=== PATIENT | female | born 1945 | race Asian ===

== ENCOUNTER 2016-06-17 14:15 | Inpatient (IN) | payer MEDICARE, OTHER ==
[~2016-06-17] VITALS: Ht 144.8 cm; Wt 73.6 kg
[2016-06-17] MEDS: [UNRECOGNIZED DRUG - REMARK] XX SCH (05:10)
[~2016-06-17 14:15] MED LIST: ASCO-110 PO; ASPI-781 PO; ATOR20TA38 PO; CHOL100016 PO; EZET10TA3 PO; FURO-109 PO; HUMALOG INSULIN; ISOS30TA5 PO; LANT3I SC; LINA5TAB PO; METO-407 PO; NIFE30TA60 PO; NIFE60TA7 PO; NIT4 SL; REPA2TAB8 PO; SITA25TA3 PO
--- NOTE | 2016-06-17 16:02 | ERA ---
ER Documentation Chief Complaint Date/Time DATE: 06/17/16 TIME: 16:00 Chief Complaint BROUGHT IN BY DAUGHTER DUE TO WEAKNESS 2 DAYS ABD PAIN HPI 71-year-old female with history of diabetes mellitus type 2, hypertension, hyperlipidemia, coronary artery disease status post CABG, anemia, CVA with residual left-sided weakness and end-stage renal disease on dialysis brought to the ED by her daughter after dialysis today for evaluation of weakness. For the last 3 days she has had increasing, generalized weakness. Denies headache or neck pain. No new visual changes, focal weakness or numbness. No chest pain or palpitations. Denies shortness of breath or cough. No leg pain or swelling. Intermittent, mild, achy left-sided abdominal pain which is exacerbated by movement. Denies nausea, vomiting or diarrhea but has had black tarry stools for the last several weeks. No hematemesis or hematochezia. She received iron supplementation at dialysis. No URI symptoms or cough. Still urinates occasionally but denies dysuria or polyuria. No fevers or chills. ROS All systems reviewed and are negative except as per history of present illness. Medications Home Meds Reported Medications Liraglutide (Victoza 3-Jared) 0.6 Mg/0.1 Ml Pen.injctr, 1.8 MG SQ QAM, SYR 06/17/16 Insulin Degludec (Tresiba Flextouch U-100) 100 Unit/1 Ml Insuln.pen, 35 UNIT SQ QAM 06/17/16 [Life Extension] No Conflict Check, 1 TAB PO DAILY for VITAMINS 06/17/16 Cholecalciferol (Vitamin D3) (VITAMIN D-3) 2,000 Unit Capsule, 1300 UNIT PO DAILY, CAP 06/17/16 Aspirin* (Ecotrin*) 325 Mg Tablet.dr, 325 MG PO DAILY, TAB 08/01/15 Ascorbate Calcium (Vitamin C) 500 Mg Tablet, 500 MG PO DAILY, TAB 08/01/15 Isosorbide Mononitrate* (Isosorbide Mononitrate*) 30 Mg Tab.er.24h, 30 MG PO DAILY, TAB 08/01/15 Repaglinide* (Repaglinide*) 2 Mg Tablet, 2 MG PO AC MEALS, TAB 08/01/15 Ezetimibe* (Zetia*) 10 Mg Tablet, 10 MG PO DAILY, TAB 08/01/15 Nifedipine* (Nifedipine ER*) 60 Mg Tablet.sa, 60 MG PO BID, TAB.SA 08/01/15 Nitroglycerin* (Nitrostat*) 0.4 Mg Tab.subl, 0.4 MG SL Q5MIN Y for CHEST PAIN, BOTTLE 07/16/14 Metoprolol Tartrate* (Lopressor*) 100 Mg Tablet, 100 MG PO BID, TAB 07/16/14 Furosemide* (Lasix*) 40 Mg Tablet, 40 MG PO DAILY, TAB 07/16/14 Discontinued Reported Medications [Humalog Insulin] No Conflict Check 08/01/15 Cholecalciferol (Vitamin D3) 1,000 Unit Capsule, 1000 UNIT PO DAILY, CAP 08/01/15 Linagliptin (TRADJENTA) 5 Mg Tablet, 5 MG PO DAILY, TAB 08/01/15 Insulin Glargine* (Lantus*) 100 Unit/Ml Soln, 15 UNIT SC QHS, #1 VIAL 08/01/15 Nifedipine* (Nifedipine ER*) 30 Mg Tablet.sa, 30 MG PO Q PM, TAB.SA 08/01/15 Atorvastatin Calcium* (Atorvastatin Calcium*) 20 Mg Tablet, 20 MG PO HS, TAB 07/16/14 Sitagliptin* (Januvia*) 25 Mg Tablet, 25 MG PO DAILY, TAB 07/16/14 Insulin Glargine* (Lantus*) 100 Unit/Ml Soln, 19 UNIT SC Q AM, EA 07/16/14 Allergies Allergies: Coded Allergies: clopidogrel bisulfate (Verified Allergy, Unknown, rash, 06/17/16) PMhx/Soc Reviewed in chart. As per HPI. History of Surgery: Yes ( 4, CABG, lobectomy for benign mass) Anesthesia Reaction: No Hx Neurological Disorder: Yes (CVA with residual left facial droop) Hx Cardiac Disorders: Yes (CAD, CABG) Hx Psychiatric Problems: No Hx Miscellaneous Medical Probl: Yes (diabetes, ESRD on hemodialysis) Hx Alcohol Use: No Hx Substance Use: No Hx Tobacco Use: No Smoking Status: Never smoker FmHx Reviewed in chart. No stroke or cancer. Not relevant to presenting complaint. Physical Exam Vitals Vital Signs Date Time Temp Pulse Resp B/P Pulse Ox O2 Delivery O2 Flow Rate FiO2 06/17/16 18:00 40 16 156/65 06/17/16 16:59 82 20 157/52 100 Room Air 06/17/16 14:32 98.6 78 18 137/59 97 Physical Exam Const: Alert, moderate distress. Head: Atraumatic Eyes: Normal Conjunctiva. Pupils equal reactive to light. ENT: Normal External Ears, Nose and Mouth. Neck: Full range of motion. Nontender. No JVD. Resp: Breath sounds are equal and clear to auscultation bilaterally. No rales rhonchi or wheezes. Cardio: Regular rate and rhythm, no murmurs or gallops. Abd: Soft, obese, non tender, non distended. Bowel sounds are present. No rebound or guarding. No masses or abnormal pulsations. Skin: No petechiae or rashes Back: No midline or CVA tenderness Ext: No cyanosis, or edema. Right upper extremity AV fistula with palpable thrill. Neur: Awake and alert. Left facial droop. Motor strength left upper and left lower extremity 4/5, right upper and right lower extremity 5/5. Psych: Normal Mood and Affect. Patient does not appear anxious or depressed. Result Diagram: 06/17/16 1605 06/17/16 1605 Results 24 hrs Laboratory Tests Test 06/17/16 16:05 06/17/16 16:35 06/17/16 17:40 White Blood Count 10.810^3/ul Red Blood Count 2.4210^6/ul Hemoglobin 7.9g/dl Hematocrit 23.6% Mean Corpuscular Volume 97.5fl Mean Corpuscular Hemoglobin 32.6pg Mean Corpuscular Hemoglobin Concent 33.5g/dl Red Cell Distribution Width 15.0% Platelet Count 70798^3/UL Mean Platelet Volume 10.7fl Neutrophils % 67.6% Lymphocytes % 20.5% Monocytes % 8.7% Eosinophils % 2.1% Basophils % 0.5% Nucleated Red Blood Cells % 0.0/100WBC Neutrophils # 7.310^3/ul Lymphocytes # 2.210^3/ul Monocytes # 0.910^3/ul Eosinophils # 0.210^3/ul Basophils # 0.110^3/ul Nucleated Red Blood Cells # 0.010^3/ul Sodium Level 137mmol/L Potassium Level 4.3mmol/L Chloride Level 96mmol/L Carbon Dioxide Level 31mmol/L Anion Gap 14 Blood Urea Nitrogen 22mg/dl Creatinine 2.40mg/dl Glucose Level 260mg/dl Calcium Level 9.2mg/dl Total Bilirubin 0.3mg/dl Direct Bilirubin 0.00mg/dl Indirect Bilirubin 0.3mg/dl Aspartate Amino Transf (AST/SGOT) 34IU/L Alanine Aminotransferase (ALT/SGPT) 40IU/L Alkaline Phosphatase 169IU/L Total Protein 6.8g/dl Albumin 3.9g/dl Globulin 2.90g/dl Albumin/Globulin Ratio 1.34 Urine Color LT. YELLOW Urine Clarity CLOUDY Urine pH 8.0 Urine Specific Effort 1.010 Urine Ketones NEGATIVE Urine Nitrite NEGATIVE Urine Bilirubin NEGATIVE Urine Urobilinogen 0.2 E.U./dL Urine Leukocyte Esterase 2+ Urine Microscopic RBC 2-5/HPF Urine Microscopic WBC >200/HPF Urine Epithelial Cells MODERATE Urine Bacteria MANY Urine Hemoglobin 1+ Urine Glucose 0.25%% Urine Total Protein 4+ Stool Occult Blood POSITIVE Current Medications Medications (Trade) Dose Ordered Sig/Santino Route PRN Reason Start Time Stop Time Status Last Admin Dose Admin Pantoprazole (Protonix Iv) 40 mg ONCE ONCE IV 06/17/16 18:00 06/17/16 18:01 DC 06/17/16 18:28 Nitroglycerin (Nitroglycerin (Sl Tab) 0.4 Mg) 1 tab [id number] PRN SL CHEST PAIN 06/17/16 19:30 Miscellaneous Information (* Miscellaneous Pharmacy Order) ONCE XX 06/17/16 19:30 06/17/16 19:36 DC Miscellaneous Information (* Miscellaneous Pharmacy Order) [facility] med 35 un... DAILY XX 06/17/16 19:30 IV Flush (NS 3 ml) 3 ml PER PROTOCOL IV 06/17/16 19:30 Ondansetron HCl (Zofran Inj) 4 mg Q6H PRN IV NAUSEA AND/OR VOMITING 06/17/16 19:30 Acetaminophen (Tylenol Tab) 650 mg Q6H PRN PO PAIN LEVEL 1-3 OR FEVER 06/17/16 19:30 Docusate Sodium (Colace) 100 mg Q12H PRN PO CONSTIPATION 06/17/16 19:30 Miscellaneous Information (* Miscellaneous Pharmacy Order) HYPOGLYCEMIA PROTOCOL w... ONCE ONCE XX 06/17/16 19:30 06/17/16 20:14 DC Miscellaneous Information (* Miscellaneous Pharmacy Order) Discontinue Glyburide, Glipizide,... ONCE ONCE XX 06/17/16 19:30 06/17/16 20:14 DC Miscellaneous Information (* Miscellaneous Pharmacy Order) Discontinue all previ... ONCE ONCE XX 06/17/16 19:30 06/17/16 20:14 DC RHYTHM STRIP INTERPRETATION: Time: 18:00. Sinus bradycardia. Ventricular rate 38. No ectopy. Indication: Weakness. EKG: TIME: 16:57. Sinus rhythm. Ventricular rate 79. IA interval 240 ms consistent with first-degree AV block. Right bundle branch block. No acute ST segment elevation or depression. No ectopy. EP Interpretation: Abnormal EKG. EKG: TIME: 18:10. Sinus bradycardia. Ventricular rate 40. IA interval 294 ms consistent with first-degree AV block. Right bundle branch block. No acute ST segment elevation or depression. No ectopy. EP Interpretation: Abnormal EKG. IMAGING: PROCEDURE: XR Chest. CLINICAL INDICATION: Shortness of breath. TECHNIQUE: Single frontal view. COMPARISON: 08/01/2015. FINDINGS: The tunneled right internal jugular vein dialysis catheter has been removed. Surgical carlos are once again noted in the right upper and midlung zones. There are sternal wires and mediastinal clips. The heart is enlarged. Calcification is present in the aorta consistent with atherosclerosis. The lungs are clear. There is no pleural effusion. There is no pneumothorax. IMPRESSION: 1. Dialysis catheter removed. 2. Cardiomegaly. 3. Prior surgery. 4. Clear lungs. RPTAT: QQ .Janak Caldwell MD, MD Date Time Electronically viewed and signed by .Janak Caldwell MD, MD on 06/17/2016 16:45 .R/ Procedures/MDM DOCUMENTS REVIEWED: ED nurse, prior ED, prior records MEDICAL DECISION MAKIN-year-old female with history of diabetes mellitus type 2, hypertension, hyperlipidemia, coronary artery disease status post CABG, anemia, CVA with residual left-sided weakness and end-stage renal disease on dialysis brought to the ED by her daughter after dialysis today for evaluation of weakness. Patient with worsening anemia, hemoglobin 7.9 as compared to 10.3 on 11/30/2015. Black tarry stools but has been receiving iron supplementation and stool guaiac is positive. Urinary tract infection but no flank tenderness, signs of pyelonephritis or criteria for systemic inflammatory response syndrome or sepsis. Rocephin 1 g IV piggyback given. Documented episodes of bradycardia with heart rates down to the high 30s may be secondary to beta blockade. No hypotension. End-stage renal disease on dialysis status post dialysis this afternoon without evidence of hyperkalemia. Mild diabetic hyperglycemia without DKA or HONK. Patient be admitted to telemetry for cardiology consultation, IV antibiotics, further evaluation and management. Counseled patient and family regarding diagnosis, diagnostic results and plan for admission. CALLS/CONSULTS: Time 17:55, Dr. Bates, he is not on-call tonight and has referred to Dr Garcia, . CALLS/CONSULTS: Time 18:20, Dr. Negron for Dr. Cornad. Recommends admission to telemetry. Will consult Dr. Reese of cardiology. PATIENT CARE TRANSITIONED: Time: 18:35, Dr. Negron. CRITICAL CARE TIME: Due to the high probability of sudden clinically significant hemodynamic and cardiovascular deterioration, this patient with end- stage renal disease on dialysis, weakness, anemia, GI Bleed and severe bradycardia required multiple, frequent reevaluations of vital signs and response to therapy. Additional critical care time was spent in interpretation of relevant clinical data, obtaining supplemental history from daughter, review of previous medical records and consultation with Dr. Dunbar of nephrology the admitting physician Dr. Negron TOTAL CRITICAL CARE TIME: 35 minutes not including other separately reportable procedures. Departure Diagnosis: Primary Impression: Acute weakness Additional Impressions: Bradycardia with 31-40 beats per minute Urinary tract infection without hematuria Qualified Code: N39.0 - Urinary tract infection without hematuria, site unspecified Anemia Qualified Code: D64.9 - Anemia, unspecified type Diabetes mellitus type 2 in obese Hypertension Qualified Code: I10 - Essential hypertension Coronary artery disease Qualified Code: I25.10 - Coronary artery disease involving [place] heart without angina pectoris, unspecified vessel or lesion type History of coronary artery bypass graft History of CVA with residual deficit Upper GI bleed Condition: Serious ALEJANDRO PAREDES MD Jun 17, 2016 16:02
[2016-06-17 16:14] LABS: ADD SCAN DIFF NO
[2016-06-17 16:17] LABS: BASOPHIL # 0.1 10^3/ul (0.0-0.1); BASOPHILS % 0.5 % (0.0-2.0); EOSINOPHILS # 0.2 10^3/ul (0.0-0.5); EOSINOPHILS % 2.1 % (0.0-7.0); HEMATOCRIT 23.6 % (37.0-47.0); HEMOGLOBIN 7.9 g/dl (12.0-16.0); LYMPHOCYTES # 2.2 10^3/ul (0.8-2.9); LYMPHOCYTES % 20.5 % (15.0-51.0); MEAN CORPUSCULAR HEMOGLOBIN 32.6 pg (29.0-33.0); MEAN CORPUSCULAR HGB CONC 33.5 g/dl (32.0-37.0); MEAN CORPUSCULAR VOLUME 97.5 fl (82.0-101.0); MEAN PLATELET VOLUME 10.7 fl (7.4-10.4); MONOCYTE # 0.9 10^3/ul (0.3-0.9); MONOCYTES % 8.7 % (0.0-11.0); NEUTROPHIL # 7.3 10^3/ul (1.6-7.5); NEUTROPHILS % 67.6 % (39.0-77.0); PLATELET COUNT 217 10^3/UL (140-415); RED BLOOD COUNT 2.42 10^6/ul (4.20-5.40); WHITE BLOOD COUNT 10.8 10^3/ul (4.8-10.8)
[2016-06-17 16:32] LABS: ALBUMIN 3.9 g/dl (3.3-4.9); ALBUMIN/GLOBULIN RATIO 1.34; BILIRUBIN,INDIRECT 0.3 mg/dl (0-1.1); BILIRUBIN,TOTAL 0.3 mg/dl (0.2-1.3); CALCIUM 9.2 mg/dl (8.4-10.2); CREATININE 2.4 mg/dl (0.44-1.00); POTASSIUM 4.3 mmol/L (3.5-5.1); TOTAL PROTEIN 6.8 g/dl (6.1-8.1)
--- NOTE | 2016-06-17 16:45 | RADRPT ---
PROCEDURE: XR Chest. CLINICAL INDICATION: Shortness of breath. TECHNIQUE: Single frontal view. COMPARISON: 08/01/2015. FINDINGS: The tunneled right internal jugular vein dialysis catheter has been removed. Surgical carlos are o nce again noted in the right upper and midlung zones. There are sternal wires and mediastinal clips . The heart is enlarged. Calcification is present in the aorta consistent with atherosclerosis. The lungs are clear. There is no pleural effusion. There is no pneumothorax. IMPRESSION: 1. Dialysis catheter removed. 2. Cardiomegaly. 3. Prior surgery. 4. Clear lungs. RPTAT: QQ .Janak Caldwell MD, MD Date Time Electronically viewed and signed by .Janak Caldwell MD, MD on 06/17/2016 16:45 .R/
[2016-06-17] MEDS ORDERED: CHOL20003 PO (16:52)
[2016-06-17 16:53] LABS: ADD UMIC YES; URINE BILIRUBIN (Dip) NEGATIVE (NEGATIVE); URINE BLOOD (Dip) 1+ (NEGATIVE); URINE COLOR LT. YELLOW (YELLOW); URINE KETONES (Dip) NEGATIVE (NEGATIVE); URINE LEUKOCYTE ESTERASE (Dip) 2+ (NEGATIVE); URINE NITRITE (Dip) NEGATIVE (NEGATIVE); URINE TOTAL PROTEIN (Dip) 4+ (NEGATIVE); URINE UROBILINOGEN (Dip) 0.2 E.U./dL (0.1-1.0)
[2016-06-17] MEDS ORDERED: [UNRECOGNIZED DRUG - OTHER] PO (16:57)
[2016-06-17 17:03] LABS: BACTERIA,URINE MANY
[2016-06-17] MEDS ORDERED: LIRA0.6P2 SQ (17:05)
[2016-06-17] MEDS ORDERED: INSU100I31 SQ (17:05)
[2016-06-17] MEDS ORDERED: PANTOPRAZOLE 40 MG INJ IV ONE (18:00)
[2016-06-17] MEDS ORDERED: NACL 0.9% 3 ML SYG IV SCH (19:30)
[2016-06-17] MEDS ORDERED: NITROGLYCERIN (SL) 0.4 MG TAB SL PRN (19:30)
[2016-06-17] MEDS ORDERED: DOCUSATE SODIUM 100 MG CAP PO PRN (19:30)
[2016-06-17] MEDS ORDERED: ONDANSETRON 4 MG INJ IV PRN (19:30)
--- NOTE | 2016-06-17 19:49 | HP ---
Date/Time of Note Date/Time of Note DATE: 06/17/16 TIME: 19:36 Assessment/Plan VTE Prophylaxis VTE Prophylaxis Intervention: SCD's Lines/Catheters IV Catheter Type (from Nrs): Saline Lock Assessment/Plan Problems: (1) Acute weakness Status: Acute Comment: Likely due either to bradycardia or GIB. See below (2) Urinary tract infection without hematuria Status: Acute Comment: Urine culture and start cipro Qualifiers: Urinary tract infection type: site unspecified Qualified Code: N39.0 - Urinary tract infection without hematuria, site unspecified (3) Bradycardia with 31-40 beats per minute Status: Acute Comment: Hold metoprolol. Cardiology consult (4) Guaiac positive stools Status: Acute Comment: Start PPI and Get GI consult (5) Acute blood loss anemia Status: Acute Comment: see above (6) End stage renal disease Status: Chronic Comment: Nephrology to follow but HD not due for 2 days (7) Diabetes mellitus type 2 in obese Status: Chronic Comment: Cont. home DM regimen. Family to bring in meds (8) Hypertension Status: Chronic Comment: Monitor BP while metoprolol being held Qualifiers: Hypertension type: essential hypertension Qualified Code: I10 - Essential hypertension (9) Hyperlipidemia Status: Chronic Comment: Cont. zetia Qualifiers: Hyperlipidemia type: unspecified Qualified Code: E78.5 - Hyperlipidemia, unspecified hyperlipidemia type HPI/ROS Admit Date/Time Admit Date/Time 06/17/2016 @ 1930 Hx of Present Illness 71 y/o P F w/ h/o T2DM, w/ DN/DR/DN, ESRD, HTN, hyperlipidemia, CAD, CVA w/ residual deficit, osteoporosis, in [facility] until 2 days ago when she developed new onset of generalized weakness and malaise. This continued to progress until this am when she felt so weak that she almost could not get out of bed. However , knew that she had to go to have HD so she did. However, after HD called her daughter to come pick her up to go to hospital b/c too weak. Admits to black tarry stool. In ER, had episodes on monitor of HR dropping to 40's and 30's intermittently. One captured on 12-lead was as slow as 40 bpm. Pt. also found to have > 200 WBC in urine. ROS Constitutional: fatigue Eyes: other (poor vision especially L > R) ENT: no complaints Respiratory: no complaints Cardiovascular: no complaints Gastrointestinal: no complaints Genitourinary: no complaints Musculoskeletal: no complaints Skin: no complaints Neurologic: no complaints Endocrine: no complaints Psychological: nl mood/affect, no complaints PMH/Family/Social Past Medical History Medical History: coronary artery disease, diabetes, high cholesterol, hypertension, renal disease, other (CVA, ESRD, osteoporosis) Past Surgical History Past Surgical Hx: coronary bypass surgery, other (c-sect, B catarcts, AV fistulas, R partial lobectomy) Family History Significant Family History: no pertinent family hx Social History Born in [facility]. , four grown kids, two in [facility] Alcohol Use: none Smoking Status: Never smoker Drug Use: none Exam/Review of Systems Vital Signs Vitals VS - Last 72 Hours, by Label Date Time Temp Pulse Resp B/P Pulse Ox O2 Delivery O2 Flow Rate FiO2 06/17/16 16:59 82 20 157/52 100 Room Air 06/17/16 14:32 98.6 78 18 137/59 97 Vital Signs Date Time Temp Pulse Resp B/P Pulse Ox O2 Delivery O2 Flow Rate FiO2 06/17/16 16:59 82 20 157/52 100 Room Air 06/17/16 14:32 98.6 Exam Constitutional: alert, frail, oriented, other (obese) Psych: nl mood/affect, no complaints Eyes: EOMI, PERRL, nl conjunctiva, nl sclera, No nl lids (ptosis L eyelid) ENMT: mucosa pink and moist, nl external ears & nose Neck: non-tender, supple, No bruits, No masses, No thyromegaly Respiratory: clear to auscultation, normal air movement Cardiovascular: regular rate and rhythm, No edema, No murmurs/extra sounds, No rub Gastrointestinal: bowel sounds, nl liver, spleen, non-tender, soft, No mass, No rebound or guarding Musculoskeletal: nl extremities to inspection Extremities: normal pulses, No clubbing, No cyanosis, No edema Neurological: PNEUMATIC RIVETER II-XII intact, focal weakness (L sided residual deficit), nl mental status, No nl speech (dysarthric) Labs Result Diagram: 06/17/16 1605 06/17/16 1605 Medications Medications Current Medications Cholecalciferol (Vitamin D) 1,300 unit DAILY PO ; Start 06/18/16 at 09:00; Status UNV EZETIMIBE (Zetia) 10 mg DAILY PO ; Start 06/18/16 at 09:00; Status UNV Furosemide (Lasix) 40 mg DAILY PO ; Start 06/18/16 at 09:00; Status UNV Isosorbide Mononitrate (Imdur) 30 mg DAILY PO ; Start 06/18/16 at 09:00; Status UNV Nifedipine (Procardia Xl) 60 mg BID PO ; Start 06/17/16 at 21:00; Status UNV Nitroglycerin (Nitroglycerin (Sl Tab) 0.4 Mg) 1 tab [id number] PRN SL CHEST PAIN ; Start 06/17/16 at 19:30; Status UNV Miscellaneous Information 500 mg DAILY PO ; Start 06/18/16 at 09:00; Status UNV Miscellaneous Information (* Miscellaneous Pharmacy Order) ONCE XX ; Start 06/17 at 19:30; Status UNV Miscellaneous Information (* Miscellaneous Pharmacy Order) Victoza home med 1.8 mg... DAILY XX ; Start 06/18/16 at 09:00; Status UNV BLANK HOFFMAN MD Jun 17, 2016 19:47
[2016-06-17] MEDS ORDERED: GLUCAGON 1 MG INJ IM PRN (20:30)
[2016-06-17] MEDS ORDERED: GLUCOSE GEL 15 GRAM TUBE BUCCAL PRN (20:30)
[2016-06-17] MEDS ORDERED: DEXTROSE 50% 50 ML SYRINGE IV PRN ×2 (20:30)
[2016-06-17] MEDS ORDERED: GLUCOSE GEL 15 GRAM TUBE PO PRN ×2 (20:30)
[2016-06-17] MEDS: INSULIN ASPART [NOVOLOG] 3 ML PEN SC SCH (21:00)
[2016-06-17] MEDS: CIPROFLOXACIN 250 MG TAB PO SCH (21:40)
[2016-06-17] MEDS: NIFEdipine (XL) 60 MG TAB PO SCH (21:41)
--- NOTE | 2016-06-17 21:49 | CONS ---
DATE OF ADMISSION: 06/17/2016 DATE OF CONSULTATION: 06/17/2016 TYPE OF CONSULTATION: Cardiology. REASON FOR CONSULTATION: Bradycardia, generalized weakness. REQUESTING PHYSICIAN: Dr. Lobo Hoffman HISTORY OF PRESENT ILLNESS: Ms. Nuno is a very-pleasant 71-year-old female with history of diabet es mellitus type 2; hypertension; dyslipidemia; coronary artery disease, status post coronary bypass graft surgery with graft patent by catheterization 07/2015; end-stage renal disease on hemodialysis ; diabetes mellitus; history of dyslipidemia; prior CVA; osteoporosis who presented with 2 days of g eneralized weakness and malaise. The patient denied chest pain, shortness of breath. The patient p resented for hemodialysis and after dialysis was noted to be very weak and also admitted to having b lack, tarry stools. Upon arrival in the emergency department, temperature 98.6, blood pressure 137/ 59, pulse 78, respiratory rate 18, saturating 97%. The patient's labs were notable for white count of 10.8, hemoglobin 7.9, MCV 97.5, platelet count of 217. Sodium 137, potassium 4.3, creatinine 2.4 , BUN 22, AST 34, ALT 40. UA positive, occult blood positive. The patient underwent a chest x-ray revealing cardiomegaly, clear lungs. The patient's electrocardiogram revealed sinus rhythm, rate of 79, normal axis with borderline right bundle branch block, secondary repolarization abnormalities a nd a primary first-degree AV block. The patient today was placed on telemetry and since being place d on telemetry has had episodes of bradycardia which appear to be sinus bradycardia to the high 30s and to the 40s intermittently. PAST MEDICAL HISTORY: As above in HPI. MEDICATIONS PRIOR TO ADMISSION: 1. Zetia. 2. Imdur 30 mg daily. 3. Metoprolol 100 mg p.o. b.i.d. 4. Nifedipine 60 mg p.o. b.i.d. 5. Sublingual nitroglycerin. 6. Aspirin 325 mg daily. 7. Lasix 40 mg daily. 8. Insulin. 9. Vitamin C. 10. Multivitamins. ALLERGIES: PLAVIX. SOCIAL HISTORY: No tobacco, ETOH, illicit drug use. MEDICATIONS CURRENTLY IN HOSPITAL: 1. Zetia 10 mg daily. 2. Lasix 40 mg daily. 3. Imdur 30 mg daily. 4. Vitamin C 500 mg daily. 5. Victoza. 6. Vitamin D. 7. Prandin 2 mg with meals. 8. Protonix 40 mg IV daily. 9. Procardia-XL 60 mg b.i.d. 10. Ciprofloxacin 250 mg p.o. b.i.d. 11. Insulin sliding scale. FAMILY HISTORY: Negative for sudden cardiac or early CAD. REVIEW OF SYSTEMS: As above in HPI. CONSTITUTIONAL: No fevers, chills. PULMONARY: No current shortness of breath. CARDIOVASCULAR: No current chest pain. Bradycardia. GASTROINTESTINAL: No vomiting. GENITOURINARY: No hematuria. MUSCULOSKELETAL: Degenerative joint disease. PSYCHIATRIC: The patient denies depression. NEUROLOGIC: Positive history of CVA. PHYSICAL EXAMINATION: VITAL SIGNS: Temperature of 98.6, blood pressure most recently 157/52, pulse in the 40s, respirator y rate 20, saturating 100% on room air. GENERAL: The patient is alert, awake with appearing generalized weakness and fatigue. NECK: JVP approximately 9 cm of water. CHEST: Fair air movement throughout with mildly decreased breath sounds to bases bilaterally. HEART: Bradycardic, regular rhythm. Normal S1, S2. I/ systolic murmur. Nondisplaced PMI. ABDOMEN: Positive bowel sounds, soft. EXTREMITIES: Trace edema. Pulses 1+ bilaterally at posterior tibial. NEUROLOGIC: Facial droop. LABORATORY DATA: As above in HPI. No further labs for my review at this time. IMAGING STUDIES: As above in HPI. No further imaging studies for my review at this time. ELECTROCARDIOGRAM: As above in HPI. No further electrocardiograms for my review at this time. IMPRESSION: 1. Bradycardia to the 30s, question if due to beta camron, likely in the setting of generalized co nduction system defects given right bundle branch block and first-degree atrioventricular block. 2. Abnormal electrocardiogram with right bundle block, first-degree atrioventricular block. Assess for acute coronary syndrome, rule out further degree of heart block. 3. Hypertension. 4. Dyslipidemia. 5. Anemia. 6. Gastrointestinal bleed. 7. End-stage renal disease on hemodialysis. 8. Diabetes mellitus. 9. History of cerebrovascular accident. RECOMMENDATIONS: 1. At this time would admit patient to telemetry monitoring to follow rhythm and rate control close ly. 2. Will complete a rule-out for myocardial infarction, ensure that the patient's constellation of s ymptoms are not the result of an acute coronary syndrome such as acute myocardial infarction. 3. Check a 2D echo to re-assess patient's ejection fraction, wall motion and rule out any major danial ve abnormalities. 4. Check a TSH to be sure that subclinical hypothyroidism is not additionally contributing to the p atient's bradyarrhythmias in addition to beta camron and conduction system disease. 5. Continue the patient's current Imdur and Procardia, following blood pressure closely. 6. Hold patient's beta blockers. We are doing and giving no thais agents at this time. 7. Continue the patient's daily Lasix. 8. Hemodialysis for volume removal. 9. Consider transfusion of packed RBCs, following hemoglobin closely and GI evaluation given guaiac -positive stools for workup of GI bleed. 10. Follow the patient's blood sugars closely with adjustment of hyperglycemic agents as necessary. 11. Check a fasting lipid panel for general risk stratification and adjust the patient's lipid-lowe ring medication with Zetia as necessary. 12. Will continue to follow for possible need of permanent pacemaker additionally. Thank you for allowing me to take part in the care of this patient. I will continue to follow along very closely with you with further recommendations to be made as the patient progresses through her inpatient hospital clinical course. Dictated By: DORIS ABDULLAHI/HESHAM Conf#: [id number] DID#: [id number] CC: LOBO HOFFMAN MD;*EndCC*
[2016-06-18] VITALS (23 sets, daily range): BP systolic 109–164; BP diastolic 47–71; PULSE 40–80; RESP 17–20; Ht 144.8 cm; Wt 73.6 kg
[2016-06-18 01:37] LABS: CK-MB 0.39 ng/ml (0.0-2.4); TROPONIN-I 0.014 ng/ml (0.00-0.12)
[2016-06-18] MEDS: PANTOPRAZOLE 40 MG INJ IV SCH (05:11)
[2016-06-18] MEDS: [UNRECOGNIZED DRUG - REMARK] XX SCH (05:30)
[2016-06-18] MEDS: REPAGLINIDE 2 MG TAB PO SCH ×3 (07:30→17:52)
[2016-06-18] MEDS: INSULIN ASPART [NOVOLOG] 3 ML PEN SC SCH ×4 (08:28→21:00)
[2016-06-18] MEDS: EZETIMIBE 10 MG TAB PO SCH (08:59)
[2016-06-18] MEDS: CIPROFLOXACIN 250 MG TAB PO SCH (09:00)
[2016-06-18] MEDS ORDERED: VICTOZA 18 MG/3 ML SC SCH (09:00)
[2016-06-18] MEDS: ASCORBIC ACID 500 MG TAB PO SCH (09:00)
[2016-06-18] MEDS: ISOSORBIDE MONONITRATE(SR)30 MG TAB PO SCH (09:00)
[2016-06-18] MEDS ORDERED: CHOLECALCIFEROL 2,000 UNIT CAP PO SCH (09:00)
[2016-06-18] MEDS: NIFEdipine (XL) 60 MG TAB PO SCH ×2 (09:00→21:09)
[2016-06-18] MEDS: CHOLECALCIFEROL 2,000 UNIT CAP PO SCH (09:01)
[2016-06-18] MEDS: FUROSEMIDE 40 MG TAB PO SCH (09:01)
[2016-06-18 11:01] LABS: ADD SCAN DIFF NO
[2016-06-18 11:14] LABS: BASOPHILS % 0.5 % (0.0-2.0); EOSINOPHILS # 0.2 10^3/ul (0.0-0.5); HEMATOCRIT 22.7 % (37.0-47.0); HEMOGLOBIN 7.3 g/dl (12.0-16.0); LYMPHOCYTES # 1.7 10^3/ul (0.8-2.9); LYMPHOCYTES % 21.3 % (15.0-51.0); MEAN CORPUSCULAR HEMOGLOBIN 32.3 pg (29.0-33.0); MEAN CORPUSCULAR HGB CONC 32.2 g/dl (32.0-37.0); MEAN CORPUSCULAR VOLUME 100.4 fl (82.0-101.0); MEAN PLATELET VOLUME 10.9 fl (7.4-10.4); MONOCYTE # 0.7 10^3/ul (0.3-0.9); MONOCYTES % 8.3 % (0.0-11.0); NEUTROPHIL # 5.3 10^3/ul (1.6-7.5); NEUTROPHILS % 66.4 % (39.0-77.0); NUCLEATED RED BLOOD CELLS% 0.3 /100WBC (0.0-0.0); PLATELET COUNT 179 10^3/UL (140-415); RED BLOOD COUNT 2.26 10^6/ul (4.20-5.40); RED CELL DISTRIBUTION WIDTH 15.6 % (11.5-14.5); WHITE BLOOD COUNT 7.9 10^3/ul (4.8-10.8)
--- NOTE | 2016-06-18 11:20 | CONS ---
DATE OF ADMISSION: 06/17/2016 DATE OF CONSULTATION: 06/18/[address] Moncada: Thank you for asking me to see Mrs. Nuno in GI consultation. HISTORY OF PRESENT ILLNESS: The patient, as you know, is a 71-year-old Lao female who was expe riencing a great deal of weakness, tiredness and she was brought to the emergency room yesterday. S he was found to have a low hemoglobin around 7.9 grams. She was found to have guaiac positive stool s. She has had black stools in the past. She denies abdominal pain, nausea, vomiting, heartburn, b elching, burping, bloating or dysphagia, no diarrhea, no constipation, no significant weight loss. She has a history of chronic renal failure and she is on hemodialysis. MEDICATION: She takes multiple medications at home, which includes: 1. Zetia. 2. Lopressor. 3. Nifedipine. 4. Nitrostat. 5. ____ 6. Lasix. 7. Victoza. 8. Repaglinide. 9. Vitamin C. 10. Vitamin D3. SOCIAL HISTORY: Patient does not smoke or drink. PAST MEDICAL HISTORY: Coronary artery bypass surgery. REVIEW OF SYSTEM: Includes coronary artery disease, diabetes, high cholesterol, hypertension, renal disease, CVA, osteoporosis. PHYSICAL EXAMINATION: GENERAL: The patient is a 71-year-old Lao female who at this time is alert, mildly obese, afeb rile. VITAL SIGNS: Temperature 98.2, blood pressure 164/71, pulse is 67. CARDIOVASCULAR: Normal heart sounds. RESPIRATORY: Normal breath sounds. ABDOMEN: Showed unremarkable findings. LABORATORY WORKUP: Essentially as mentioned earlier, hemoglobin 7.9, platelet count 217,000. Proth rombin time is not available. WBC count 10,800, potassium 4.3, creatinine 2.4, BUN 22, bilirubin 0. 3, AST 34, ALT 40, alkaline phosphatase is 169. CLINICAL IMPRESSION: The patient presenting with history of severe anemia with possible occult alvarado rointestinal bleeding, rule out peptic ulcer disease and AV malformation of the GI tract, colorectal neoplasm. history of coronary artery disease, hypertension, diabetes, end-stage renal disease on hemodialysis. PLAN: At this time, recommend upper endoscopy as well as lower endoscopy. Once again, doctor, thank you for this consultation. Dictated By: EARNEST SIN/HESHAM Conf#: [id number] [facility]#: [id number] CC: BLANK MONCADA MD; EARNEST BULLOCK MD;*EndCC*
[2016-06-18 11:25] LABS: CK-MB 0.45 ng/ml (0.0-2.4)
[2016-06-18 11:28] LABS: TROPONIN-I 0.018 ng/ml (0.00-0.12)
[2016-06-18 11:38] LABS: ALBUMIN 3.3 g/dl (3.3-4.9); ALBUMIN/GLOBULIN RATIO 1.57; BILIRUBIN,INDIRECT 0.2 mg/dl (0-1.1); BILIRUBIN,TOTAL 0.2 mg/dl (0.2-1.3); CALCIUM 8.9 mg/dl (8.4-10.2); CHOL/HDL RATIO 2.8 RATIO; CREATININE 3.78 mg/dl (0.44-1.00); MAGNESIUM 1.9 mg/dl (1.7-2.5); POTASSIUM 4.5 mmol/L (3.5-5.1); TOTAL PROTEIN 5.4 g/dl (6.1-8.1)
[2016-06-18 12:07] LABS: THYROID STIMULATING HORMONE 2.61 MIU/L (0.465-4.680)
[2016-06-18 12:44] LABS: CK-MB 0.41 ng/ml (0.0-2.4); TROPONIN-I 0.015 ng/ml (0.00-0.12)
[2016-06-18] MEDS ORDERED: SOD CHLORIDE 0.9% 250 ML IV* ONE (13:52)
--- NOTE | 2016-06-18 13:52 | CONS ---
Date/Time of Note Date/Time of Note DATE: 06/18/16 TIME: 13:44 Assessment/Plan Assessment/Plan Additional Assessment/Plan 71 yo Female with 1) ESRD 2) Acute anemia of blood loss on Chronic Disease 3) Mild Hyponatremia 4) Mineral bone disease, CKD 5) Chronic HTN 6) Dm with Renal Complication, ESRD HD ordered for this evening, No heparin with HD Planned for PRBC transfusion with HD Endoscopy procedure tomorrow by Dr Soto Will place patient on MWF HD schedule while in the hospital UF Even tonight Repeat H/Hct and chemistry in am BP well controlled, stable. Thank you for the opportunity to participate in the care of Ms Nuno Consultation Date/Type/Reason Admit Date/Time 06/17/2016 @ 1930 Date of Consultation: Jun 18, 2016 Type of Consultation: Nephrology Reason for Consultation ESRD Referring Provider: BLANK HOFFMAN MD Hx of Present Illness 71-year-old [place] Female with history ESRD on HD every Tuesday, , Tuesday, whos last HD was on , presenting ED with weakness found to have severe anemia and possible GIB. Pt also with history of diabetes mellitus type 2, hypertension, hyperlipidemia, coronary artery disease status post CABG, anemia, CVA with residual left-sided weakness. No chest pain or palpitations. Denies shortness of breath or cough. No leg pain or swelling. Denies nausea, vomiting or diarrhea but has had black tarry stools for the last several weeks. No hematemesis or hematochezia. She received iron supplementation at dialysis. Denies dysuria or polyuria. No fevers or chills. Nephrology consulted for managment of ESRD Eyes: other ENT: no complaints Respiratory: no complaints Cardiovascular: no complaints Gastrointestinal: no complaints Genitourinary: no complaints Musculoskeletal: no complaints Skin: no complaints Neurologic: no complaints Psychological: nl mood/affect, no complaints Past Medical History Medical History: coronary artery disease, diabetes, high cholesterol, hypertension, renal disease, other (CVA, ESRD, osteoporosis) Past Surgical History Past Surgical Hx: coronary bypass surgery, other (c-sect, B catarcts, AV fistulas, R partial lobectomy) Family History Significant Family History: no pertinent family hx Social History Alcohol Use: none Smoking Status: Never smoker Drug Use: none Exam/Review of Systems Vital Signs Vitals Vital Signs Date Time Temp Pulse Resp B/P Pulse Ox O2 Delivery O2 Flow Rate FiO2 06/18/16 12:08 65 06/18/16 11:26 98.1 17 118/54 98 06/18/16 03:34 Room Air Exam Constitutional: alert, oriented, No distress Neck: No jvd Respiratory: clear to auscultation Cardiovascular: regular rate and rhythm Gastrointestinal: soft Neurological: HIGH L[employer]LE [employer]ATOR II-XII intact, nl mental status, No lethargic Skin: No diaphoresis Results Result Diagram: 06/18/16 0945 06/18/16 0945 Results 24 hrs Laboratory Tests Test 06/17/16 16:05 06/17/16 16:35 06/17/16 17:40 06/17/16 21:53 White Blood Count 10.8 Red Blood Count 2.42 #L Hemoglobin 7.9 #L Hematocrit 23.6 #L Mean Corpuscular Volume 97.5 Mean Corpuscular Hemoglobin 32.6 Mean Corpuscular Hemoglobin Concent 33.5 Red Cell Distribution Width 15.0 H Platelet Count 217 Mean Platelet Volume 10.7 #H Neutrophils % 67.6 Lymphocytes % 20.5 Monocytes % 8.7 Eosinophils % 2.1 Basophils % 0.5 Nucleated Red Blood Cells % 0.0 Neutrophils # 7.3 Lymphocytes # 2.2 Monocytes # 0.9 Eosinophils # 0.2 Basophils # 0.1 Nucleated Red Blood Cells # 0.0 Sodium Level 137 Potassium Level 4.3 Chloride Level 96 L Carbon Dioxide Level 31 Anion Gap 14 Blood Urea Nitrogen 22 H Creatinine 2.40 H Glucose Level 260 H Calcium Level 9.2 Total Bilirubin 0.3 Direct Bilirubin 0.00 Indirect Bilirubin 0.3 Aspartate Amino Transf (AST/SGOT) 34 Alanine Aminotransferase (ALT/SGPT) 40 Alkaline Phosphatase 169 H Total Protein 6.8 Albumin 3.9 Globulin 2.90 Albumin/Globulin Ratio 1.34 Urine Color LT. YELLOW Urine Clarity CLOUDY Urine pH 8.0 Urine Specific [place] 1.010 Urine Ketones NEGATIVE Urine Nitrite NEGATIVE Urine Bilirubin NEGATIVE Urine Urobilinogen 0.2 E.U./dL Urine Leukocyte Esterase 2+ H Urine Microscopic RBC 2-5 Urine Microscopic WBC >200 Urine Epithelial Cells MODERATE Urine Bacteria MANY Urine Hemoglobin 1+ H Urine Glucose 0.25% H Urine Total Protein 4+ H Stool Occult Blood POSITIVE Bedside Glucose 337 H Test 06/18/16 00:38 06/18/16 08:00 06/18/16 09:45 06/18/16 11:54 Creatine Kinase 54 56 55 Creatine Kinase Index 0.7 0.8 0.7 Creatinine Kinase MB (Mass) 0.39 0.45 0.41 Troponin I 0.014 0.018 0.015 Bedside Glucose 253 H White Blood Count 7.9 # Red Blood Count 2.26 L Hemoglobin 7.3 L Hematocrit 22.7 L Mean Corpuscular Volume 100.4 Mean Corpuscular Hemoglobin 32.3 Mean Corpuscular Hemoglobin Concent 32.2 Red Cell Distribution Width 15.6 H Platelet Count 179 Mean Platelet Volume 10.9 H Neutrophils % 66.4 Lymphocytes % 21.3 Monocytes % 8.3 Eosinophils % 3.0 Basophils % 0.5 Nucleated Red Blood Cells % 0.3 H Neutrophils # 5.3 Lymphocytes # 1.7 Monocytes # 0.7 Eosinophils # 0.2 Basophils # 0.0 Nucleated Red Blood Cells # 0.0 Sodium Level 133 L Potassium Level 4.5 Chloride Level 96 L Carbon Dioxide Level 26 Anion Gap 16 Blood Urea Nitrogen 35 #H Creatinine 3.78 #H Glucose Level 307 H Hemoglobin A1c 6.8 H Calcium Level 8.9 Magnesium Level 1.9 Total Bilirubin 0.2 Direct Bilirubin 0.00 Indirect Bilirubin 0.2 Aspartate Amino Transf (AST/SGOT) 23 Alanine Aminotransferase (ALT/SGPT) 33 Alkaline Phosphatase 132 H Total Protein 5.4 #L Albumin 3.3 Globulin 2.10 Albumin/Globulin Ratio 1.57 Triglycerides Level 148 Cholesterol Level 101 LDL Cholesterol, Calculated 35 HDL Cholesterol 36 Cholesterol/HDL Ratio 2.8 Thyroid Stimulating Hormone (TSH) 2.610 Test 06/18/16 12:11 Bedside Glucose 243 H Medications Medications Current Medications EZETIMIBE (Zetia) 10 mg DAILY PO Last administered on 06/18/16 08:59; Admin Dose 10 MG; Start 06/18/16 at 09:00 Furosemide (Lasix) 40 mg DAILY PO Last administered on 06/18/16 09:01; Admin Dose 40 MG; Start 06/18/16 at 09:00 Isosorbide Mononitrate (Imdur) 30 mg DAILY PO Last administered on 06/18/16 09: 00; Admin Dose 30 MG; Start 06/18/16 at 09:00 Nifedipine (Procardia Xl) 60 mg BID PO Last administered on 06/18/16 09:00; Admin Dose 60 MG; Start 06/17/16 at 21:00 Nitroglycerin (Nitroglycerin (Sl Tab) 0.4 Mg) 1 tab [id number] PRN SL CHEST PAIN ; Start 06/17/16 at 19:30 Ascorbic Acid (Vitamin C) 500 mg DAILY PO ; Start 06/18/16 at 09:00 Ciprofloxacin (Cipro) 250 mg BID PO Last administered on 06/18/16 09:00; Admin Dose 250 MG; Start 06/17/16 at 21:00; Stop 06/24/16 at 20:59 Ondansetron HCl (Zofran Inj) 4 mg Q6H PRN IV NAUSEA AND/OR VOMITING; Start 06/17 at 19:30 Acetaminophen (Tylenol Tab) 650 mg Q6H PRN PO PAIN LEVEL 1-3 OR FEVER; Start at 19:30 Docusate Sodium (Colace) 100 mg Q12H PRN PO CONSTIPATION; Start 06/17/16 at 19: 30 Pantoprazole (Protonix Iv) 40 mg DAILY@06 IV Last administered on 06/18/16 05: 11; Admin Dose 40 MG; Start 06/18/16 at 06:00 Cholecalciferol (Vitamin D) 2,000 unit DAILY PO Last administered on 06/18/16 09:01; Admin Dose 2,000 UNIT; Start 06/18/16 at 09:00 Miscellaneous Information 1 ea NOTE XX ; Start 06/17/16 at 20:30 Glucose (Glutose) 15 gm Q15M PRN PO DECREASED GLUCOSE; Start 06/17/16 at 20:30 Glucose (Glutose) 22.5 gm Q15M PRN PO DECREASED GLUCOSE; Start 06/17/16 at 20:30 Dextrose (D50w Syringe) 25 ml Q15M PRN IV DECREASED GLUCOSE; Start 06/17/16 at 20:30 Dextrose (D50w Syringe) 50 ml Q15M PRN IV DECREASED GLUCOSE; Start 06/17/16 at 20:30 Glucagon (Glucagen) 1 mg Q15M PRN IM DECREASED GLUCOSE; Start 06/17/16 at 20:30 Glucose (Glutose) 15 gm Q15M PRN BUCCAL DECREASED GLUCOSE; Start 06/17/16 at 20: 30 Metoclopramide HCl (Reglan) 10 mg ONCE IV ; Start 06/18/16 at 10:30; Stop at 10:29 Polyethylene Glycol/ Electrolytes (Golytely) 2,000 ml ONCE PO ; Start 06/18/16 at 10:30; Stop 06/20/16 at 10:29 Non-Formulary Medication (Non-Formulary Insulin) 35 unit QAM SC ; Start 06/19/16 at 09:00 Patient Own Medication 1.8 ea DAILY SC ; Start 06/19/16 at 09:00 JULITA KEATING MD Jun 18, 2016 13:52
--- NOTE | 2016-06-18 15:39 | RADRPT ---
Vent Rate: 70 bpm RR Interval: 0 msec SD Interval: 312 msec QRS Duration: 146 msec QT Interval: 466 msec QTC Interval: 503 msec P-R-T [place]: 66 - 9 - 64 degrees Sinus rhythm with 1st degree AV block Right bundle branch block Abnormal ECG Electronically Signed By: Mayur Loera [id number]
--- NOTE | 2016-06-18 16:22 | CONS ---
Date/Time of Note Date/Time of Note DATE: 06/18/16 TIME: 16:15 Assessment/Plan Assessment/Plan Chief Complaint/Hosp Course IMPRESSION: 1. Bradycardia to the 30s, question if due to beta camron, likely in the setting of generalized conduction system defects given right bundle branch block and first-degree atrioventricular block.-now improved to m70's 2. Abnormal electrocardiogram with right bundle block, first-degree atrioventricular block. Assess for acute coronary syndrome, rule out further degree of heart block.-negative troponin x 3 3. Hypertension. 4. Dyslipidemia. 5. Anemia. 6. Gastrointestinal bleed. 7. End-stage renal disease on hemodialysis. 8. Diabetes mellitus. 9. History of cerebrovascular accident. Recc: -Tele -serial ecg's -Continue Procardia XL/imdur -Continue zetia -HD for volume Problems: Consultation Date/Type/Reason Admit Date/Time Jun 17, 2016 at 19:36 Initial Consult Date 06/18/16 Type of Consultation: Cardiology Reason for Consultation Bradycardia Referring Provider: BLANK HOFFMAN MD Exam/Review of Systems Vital Signs Vitals Vital Signs Date Time Temp Pulse Resp B/P Pulse Ox O2 Delivery O2 Flow Rate FiO2 06/18/16 16:04 98.6 70 18 124/54 94 06/18/16 03:34 Room Air Exam Review of Systems: CONSTITUTIONAL: No fevers, chills. PULMONARY: No sob CARDIOVASCULAR: No chest pain/palpitations GASTROINTESTINAL: No nausea/vomiting. GENITOURINARY: No hematuria/dysuria. MUSCULOSKELETAL: No myagias/arthalgias. PSYCHIATRIC: The patient denies depression. NEUROLOGIC: No weakness Constitutional: alert, oriented Psych: no complaints Head: normocephalic ENMT: mucosa pink and moist Neck: jvd (9 cm water), supple Respiratory: diminished breath sounds (at bases/B) Cardiovascular: regular rate and rhythm Gastrointestinal: non-tender, soft Musculoskeletal: muscle tone (normal) Extremities: edema (none) Neurological: other (No focal deficits) Results Result Diagram: 06/18/16 0945 06/18/16 0945 Results 24 hrs Laboratory Tests Test 06/17/16 16:35 06/17/16 17:40 06/17/16 21:53 06/18/16 00:38 Urine Color LT. YELLOW Urine Clarity CLOUDY Urine pH 8.0 Urine Specific [place] 1.010 Urine Ketones NEGATIVE Urine Nitrite NEGATIVE Urine Bilirubin NEGATIVE Urine Urobilinogen 0.2 E.U./dL Urine Leukocyte Esterase 2+ H Urine Microscopic RBC 2-5 Urine Microscopic WBC >200 Urine Epithelial Cells MODERATE Urine Bacteria MANY Urine Hemoglobin 1+ H Urine Glucose 0.25% H Urine Total Protein 4+ H Stool Occult Blood POSITIVE Bedside Glucose 337 H Creatine Kinase 54 Creatine Kinase Index 0.7 Creatinine Kinase MB (Mass) 0.39 Troponin I 0.014 Test 06/18/16 08:00 06/18/16 09:45 06/18/16 11:54 06/18/16 12:11 Bedside Glucose 253 H 243 H White Blood Count 7.9 # Red Blood Count 2.26 L Hemoglobin 7.3 L Hematocrit 22.7 L Mean Corpuscular Volume 100.4 Mean Corpuscular Hemoglobin 32.3 Mean Corpuscular Hemoglobin Concent 32.2 Red Cell Distribution Width 15.6 H Platelet Count 179 Mean Platelet Volume 10.9 H Neutrophils % 66.4 Lymphocytes % 21.3 Monocytes % 8.3 Eosinophils % 3.0 Basophils % 0.5 Nucleated Red Blood Cells % 0.3 H Neutrophils # 5.3 Lymphocytes # 1.7 Monocytes # 0.7 Eosinophils # 0.2 Basophils # 0.0 Nucleated Red Blood Cells # 0.0 Sodium Level 133 L Potassium Level 4.5 Chloride Level 96 L Carbon Dioxide Level 26 Anion Gap 16 Blood Urea Nitrogen 35 #H Creatinine 3.78 #H Glucose Level 307 H Hemoglobin A1c 6.8 H Calcium Level 8.9 Magnesium Level 1.9 Total Bilirubin 0.2 Direct Bilirubin 0.00 Indirect Bilirubin 0.2 Aspartate Amino Transf (AST/SGOT) 23 Alanine Aminotransferase (ALT/SGPT) 33 Alkaline Phosphatase 132 H Creatine Kinase 56 55 Creatine Kinase Index 0.8 0.7 Creatinine Kinase MB (Mass) 0.45 0.41 Troponin I 0.018 0.015 Total Protein 5.4 #L Albumin 3.3 Globulin 2.10 Albumin/Globulin Ratio 1.57 Triglycerides Level 148 Cholesterol Level 101 LDL Cholesterol, Calculated 35 HDL Cholesterol 36 Cholesterol/HDL Ratio 2.8 Thyroid Stimulating Hormone (TSH) 2.610 Medications Medications Current Medications EZETIMIBE (Zetia) 10 mg DAILY PO Last administered on 06/18/16t 08:59; Admin Dose 10 MG; Start 06/18/16 at 09:00 Furosemide (Lasix) 40 mg DAILY PO Last administered on 06/18/16 09:01; Admin Dose 40 MG; Start 06/18/16 at 09:00 Isosorbide Mononitrate (Imdur) 30 mg DAILY PO Last administered on 06/18/16 09: 00; Admin Dose 30 MG; Start 06/18/16 at 09:00 Nifedipine (Procardia Xl) 60 mg BID PO Last administered on 06/18/16 09:00; Admin Dose 60 MG; Start 06/17/16 at 21:00 Nitroglycerin (Nitroglycerin (Sl Tab) 0.4 Mg) 1 tab [id number] PRN SL CHEST PAIN ; Start 06/17/16 at 19:30 Ascorbic Acid (Vitamin C) 500 mg DAILY PO ; Start 06/18/16 at 09:00 Ondansetron HCl (Zofran Inj) 4 mg Q6H PRN IV NAUSEA AND/OR VOMITING; Start 06/17 at 19:30 Acetaminophen (Tylenol Tab) 650 mg Q6H PRN PO PAIN LEVEL 1-3 OR FEVER; Start at 19:30 Docusate Sodium (Colace) 100 mg Q12H PRN PO CONSTIPATION; Start 06/17/16 at 19: 30 Pantoprazole (Protonix Iv) 40 mg DAILY@06 IV Last administered on 06/18/16 05: 11; Admin Dose 40 MG; Start 06/18/16 at 06:00 Cholecalciferol (Vitamin D) 2,000 unit DAILY PO Last administered on 06/18/16 09:01; Admin Dose 2,000 UNIT; Start 06/18/16 at 09:00 Miscellaneous Information 1 ea NOTE XX ; Start 06/17/16 at 20:30 Glucose (Glutose) 15 gm Q15M PRN PO DECREASED GLUCOSE; Start 06/17/16 at 20:30 Glucose (Glutose) 22.5 gm Q15M PRN PO DECREASED GLUCOSE; Start 06/17/16 at 20:30 Dextrose (D50w Syringe) 25 ml Q15M PRN IV DECREASED GLUCOSE; Start 06/17/16 at 20:30 Dextrose (D50w Syringe) 50 ml Q15M PRN IV DECREASED GLUCOSE; Start 06/17/16 at 20:30 Glucagon (Glucagen) 1 mg Q15M PRN IM DECREASED GLUCOSE; Start 06/17/16 at 20:30 Glucose (Glutose) 15 gm Q15M PRN BUCCAL DECREASED GLUCOSE; Start 06/17/16 at 20: 30 Metoclopramide HCl (Reglan) 10 mg ONCE IV ; Start 06/18/16 at 10:30; Stop at 10:29 Polyethylene Glycol/ Electrolytes (Golytely) 2,000 ml ONCE PO ; Start 06/18/16 at 10:30; Stop 06/20/16 at 10:29 Non-Formulary Medication (Non-Formulary Insulin) 35 unit QAM SC ; Start 06/19/16 at 09:00 Patient Own Medication 1.8 ea DAILY SC ; Start 06/19/16 at 09:00 Ciprofloxacin (Cipro) 500 mg DAILY@06 PO ; Start 06/19/16 at 06:00; Stop at 05:59 DORIS VARELA Jun 18, 2016 16:22
--- NOTE | 2016-06-18 17:39 | RADRPT ---
Echocardiogram Report Patient Name: SANNA PATEL Gender: Female Date: 1945 Study Date: 18-Jun-2016 Service Desk Lead: Kim Garcia [facility] Location: [id number] Ref. Physician: DORIS REESE Quality: Good Procedures: Transthoracic echocardiogram with complete 2D, M-Mode, and doppler examination. Indications: Coronary Artery Disease. 2D/M Mode Doppler Measurement Value Normal Ranges Measurement Value Normal Ranges LVIDd 2D 4.0 3.5 - 5.6 cm AV Peak [place] 1.4 m/sec LVIDs 2D 2.7 2.1 - 4.1 cm AV Peak PG 7.3 mmHg LVPWd 2D 0.8 0.6 - 1.1 cm LVOT Peak [place] 0.8 m/sec IVSd 2D 0.9 0.6 - 1.1 cm LVOT Peak PG 2.3 mmHg AoR Diam 2D 2.8 2.0 - 3.7 cm MV E Peak [place] 1.2 m/sec EDV 2D 68.4 cm3 MV A Peak [place] 0.8 m/sec ESV 2D 19.6 cm3 MV E/A 1.4 LA Dimen 2D 4.0 2.3 - 4.0 cm MV Decel Time 173 msec MV Decel [place] 7 MV E/A 1.4 TR Peak [place] 1.9 m/sec TR Peak PG 14.7 mmHg RVSP 30.0 mmHg Findings Left Ventricle: Normal left ventricular systolic function. Normal left ventricular cavity size. Normal left ventricular wall thickness. Ejection fraction is visually estimated at 60 %. Tissue Doppler/Mitral Doppler indices are consistent with pseudonormalization with mildly elevated left atrial pressure (Stage II diastolic dysfunction). Right Ventricle: Normal right ventricular systolic function. Mild enlargement of right ventricle. Left Atrium: The left atrium is normal in size. Right Atrium: There is mild enlargement of right atrium. Mitral Valve: Mitral valve leaflets appear mildly thickened. Mild mitral annular calcification. Mild mitral valve regurgitation. Aortic Valve: Normal appearance of the aortic valve. No significant aortic stenosis or insufficiency. Tricuspid Valve: Normal appearance of the tricuspid valve. Estimated peak PA systolic pressure 30 mmHg. There is moderate tricuspid regurgitation. Pulmonic Valve: Pulmonic valve not well visualized. Pericardium: Normal pericardium with no significant pericardial effusion. Aorta: Normal aortic root. IVC: Dilated inferior vena cava with poor inspiratory collapse consistent with elevated right atrial pressures. Conclusions 1.Normal left ventricular systolic function. Normal left ventricular cavity size. Normal left ventricular wall thickness. Ejection fraction is visually estimated at 60 %. Tissue Doppler/Mitral Doppler indices are consistent with pseudonormalization with mildly elevated left atrial pressure (Stage II diastolic dysfunction). 2.Normal right ventricular systolic function. Mild enlargement of right ventricle. 3.There is mild enlargement of right atrium. 4.Mild mitral valve regurgitation. 5.Estimated peak PA systolic pressure 30 mmHg. 6.There is moderate tricuspid regurgitation. Electronically Signed By: Doris Reese 18-Jun-2016 17:39:06 -0700 Patient Name: SANNA PATEL Study Date: 18-Jun-2016 [id number]
[2016-06-18] MEDS: PEG/ELECTROLYTES 4L BTL PO SCH (20:53)
[2016-06-18] MEDS: METOCLOPRAMIDE 10 MG INJ IV SCH (20:53)
[2016-06-18] MEDS ORDERED: TRESIBA 100 UNIT/ML SC SCH (21:00)
[2016-06-18] MEDS: ACETAMINOPHEN 325 MG TAB PO PRN (21:10)
--- NOTE | 2016-06-18 21:30 | PN ---
Date/Time of Note Date/Time of Note DATE: 06/18/16 TIME: 21:20 Assessment/Plan VTE Prophylaxis VTE Prophylaxis Intervention: SCD's Lines/Catheters IV Catheter Type (from [facility]): [facility] Urinary Cath still in place: No Assessment/Plan Problems: (1) Acute weakness Status: Resolved (2) Bradycardia with 31-40 beats per minute Status: Resolved Comment: with discontinuation of metoprolol (3) Acute blood loss anemia Status: Acute Comment: pt. receiving blood transfusion w/ HD. Will get upper and lower endoscopy tomorrow. (4) Guaiac positive stools Status: Acute Comment: Will get upper and lower endoscopy tomorrow. (5) Urinary tract infection without hematuria Status: Acute Comment: Growing gram (-) rods. ID/sensitivities pending. On cipro Qualifiers: Urinary tract infection type: site unspecified Qualified Code: N39.0 - Urinary tract infection without hematuria, site unspecified (6) Type 2 diabetes mellitus with diabetic chronic kidney disease Status: Chronic Comment: Hyperglycemic earlier. Now improved. Will reevaluate regimen tomorrow. (7) Hypertension Status: Chronic Comment: BP controlled on home meds even w/o metoprolol. Will monitor. Qualifiers: Hypertension type: essential hypertension Qualified Code: I10 - Essential hypertension (8) End stage renal disease Status: Chronic Comment: S/p HD today. Defer to renal for ongoing schedule Subjective 24 Hr Interval Summary Constitutional: improved (less fatigue w/ discontinuation of metoprolol), no complaints Respiratory: no complaints Cardiovascular: no complaints Gastrointestinal: no complaints Genitourinary: no complaints Musculoskeletal: no complaints Neurologic: no complaints Exam/Review of Systems Vital Signs Vitals VS - Last 72 Hours, by Label Date Time Temp Pulse Resp B/P Pulse Ox O2 Delivery O2 Flow Rate FiO2 06/18/16 17:42 56 18 06/18/16 17:15 60 06/18/16 17:00 60 06/18/16 16:45 58 06/18/16 16:31 68 06/18/16 16:30 58 06/18/16 16:05 80 06/18/16 16:04 98.6 70 18 124/54 94 06/18/16 16:00 68 06/18/16 15:35 70 06/18/16 15:05 70 18 06/18/16 15:05 70 06/18/16 12:30 65 06/18/16 12:08 65 06/18/16 11:26 98.1 79 17 118/54 98 06/18/16 08:18 67 06/18/16 08:17 98.2 72 18 164/71 94 06/18/16 08:00 67 06/18/16 04:59 98.3 67 20 109/47 98 06/18/16 04:04 66 06/18/16 03:34 66 16 130/45 100 Room Air 06/18/16 00:00 75 16 132/45 100 06/17/16 22:00 76 16 145/50 99 Room Air 06/17/16 20:00 39 16 145/49 100 Room Air 06/17/16 18:00 40 16 156/65 06/17/16 16:59 82 20 157/52 100 Room Air 06/17/16 14:32 98.6 78 18 137/59 97 Vital Signs Date Time Temp Pulse Resp B/P Pulse Ox O2 Delivery O2 Flow Rate FiO2 06/18/16 17:42 56 18 06/18/16 16:04 98.6 124/54 94 06/18/16 03:34 Room Air Exam Constitutional: alert, frail, obese, oriented Respiratory: clear to auscultation, normal air movement Cardiovascular: nl pulses, regular rate and rhythm, No edema, No murmurs/extra sounds, No rub Gastrointestinal: bowel sounds, nl liver, spleen, non-tender, soft, No mass, No rebound or guarding Musculoskeletal: nl extremities to inspection Extremities: normal pulses, No clubbing, No cyanosis, No edema Neurological: DIRECTOR OF SOCIAL WORK II-XII intact, nl mental status, nl speech, nl strength Additional Comments Bedside Glucose - 72 Hours Test 06/17/16 21:53 06/18/16 08:00 06/18/16 12:11 06/18/16 17:28 Bedside Glucose 337mg/dL (70-220) H 253mg/dL (70-220) H 243mg/dL (70-220) H 160mg/dL (70-220) Test 06/18/16 20:03 Bedside Glucose 154mg/dL (70-220) Results Result Diagram: 06/18/16 0945 06/18/16 0945 Results 24 hrs Laboratory Tests Test 06/17/16 21:53 06/18/16 00:38 06/18/16 08:00 06/18/16 09:45 Bedside Glucose 337 H 253 H Creatine Kinase 54 56 Creatine Kinase Index 0.7 0.8 Creatinine Kinase MB (Mass) 0.39 0.45 Troponin I 0.014 0.018 White Blood Count 7.9 # Red Blood Count 2.26 L Hemoglobin 7.3 L Hematocrit 22.7 L Mean Corpuscular Volume 100.4 Mean Corpuscular Hemoglobin 32.3 Mean Corpuscular Hemoglobin Concent 32.2 Red Cell Distribution Width 15.6 H Platelet Count 179 Mean Platelet Volume 10.9 H Neutrophils % 66.4 Lymphocytes % 21.3 Monocytes % 8.3 Eosinophils % 3.0 Basophils % 0.5 Nucleated Red Blood Cells % 0.3 H Neutrophils # 5.3 Lymphocytes # 1.7 Monocytes # 0.7 Eosinophils # 0.2 Basophils # 0.0 Nucleated Red Blood Cells # 0.0 Sodium Level 133 L Potassium Level 4.5 Chloride Level 96 L Carbon Dioxide Level 26 Anion Gap 16 Blood Urea Nitrogen 35 #H Creatinine 3.78 #H Glucose Level 307 H Hemoglobin A1c 6.8 H Calcium Level 8.9 Magnesium Level 1.9 Total Bilirubin 0.2 Direct Bilirubin 0.00 Indirect Bilirubin 0.2 Aspartate Amino Transf (AST/SGOT) 23 Alanine Aminotransferase (ALT/SGPT) 33 Alkaline Phosphatase 132 H Total Protein 5.4 #L Albumin 3.3 Globulin 2.10 Albumin/Globulin Ratio 1.57 Triglycerides Level 148 Cholesterol Level 101 LDL Cholesterol, Calculated 35 HDL Cholesterol 36 Cholesterol/HDL Ratio 2.8 Thyroid Stimulating Hormone (TSH) 2.610 Test 06/18/16 11:54 06/18/16 12:11 06/18/16 17:28 06/18/16 20:03 Creatine Kinase 55 Creatine Kinase Index 0.7 Creatinine Kinase MB (Mass) 0.41 Troponin I 0.015 Bedside Glucose 243 H 160 154 Medications Medications Current Medications EZETIMIBE (Zetia) 10 mg DAILY PO Last administered on 06/18/16 08:59; Admin Dose 10 MG; Start 06/18/16 at 09:00 Furosemide (Lasix) 40 mg DAILY PO Last administered on 06/18/16 09:01; Admin Dose 40 MG; Start 06/18/16 at 09:00 Isosorbide Mononitrate (Imdur) 30 mg DAILY PO Last administered on 06/18/16 09: 00; Admin Dose 30 MG; Start 06/18/16 at 09:00 Nifedipine (Procardia Xl) 60 mg BID PO Last administered on 06/18/16 21:09; Admin Dose 60 MG; Start 06/17/16 at 21:00 Nitroglycerin (Nitroglycerin (Sl Tab) 0.4 Mg) 1 tab [id number] PRN SL CHEST PAIN ; Start 06/17/16 at 19:30 Ascorbic Acid (Vitamin C) 500 mg DAILY PO ; Start 06/18/16 at 09:00 Ondansetron HCl (Zofran Inj) 4 mg Q6H PRN IV NAUSEA AND/OR VOMITING; Start 06/17 at 19:30 Acetaminophen (Tylenol Tab) 650 mg Q6H PRN PO PAIN LEVEL 1-3 OR FEVER Last administered on 06/18/16 21:10; Admin Dose 650 MG; Start 06/17/16 at 19:30 Docusate Sodium (Colace) 100 mg Q12H PRN PO CONSTIPATION; Start 06/17/16 at 19: 30 Pantoprazole (Protonix Iv) 40 mg DAILY@06 IV Last administered on 06/18/16 05: 11; Admin Dose 40 MG; Start 06/18/16 at 06:00 Cholecalciferol (Vitamin D) 2,000 unit DAILY PO Last administered on 06/18/16 09:01; Admin Dose 2,000 UNIT; Start 06/18/16 at 09:00 Miscellaneous Information 1 ea NOTE XX ; Start 06/17/16 at 20:30 Glucose (Glutose) 15 gm Q15M PRN PO DECREASED GLUCOSE; Start 06/17/16 at 20:30 Glucose (Glutose) 22.5 gm Q15M PRN PO DECREASED GLUCOSE; Start 06/17/16 at 20:30 Dextrose (D50w Syringe) 25 ml Q15M PRN IV DECREASED GLUCOSE; Start 06/17/16 at 20:30 Dextrose (D50w Syringe) 50 ml Q15M PRN IV DECREASED GLUCOSE; Start 06/17/16 at 20:30 Glucagon (Glucagen) 1 mg Q15M PRN IM DECREASED GLUCOSE; Start 06/17/16 at 20:30 Glucose (Glutose) 15 gm Q15M PRN BUCCAL DECREASED GLUCOSE; Start 06/17/16 at 20: 30 Metoclopramide HCl (Reglan) 10 mg ONCE IV Last administered on 06/18/16 20:53; Admin Dose 10 MG; Start 06/18/16 at 10:30; Stop 06/20/16 at 10:29 Polyethylene Glycol/ Electrolytes (Golytely) 2,000 ml ONCE PO Last administered on 06/18/16 20:53; Admin Dose 2,000 ML; Start 06/18/16 at 10:30; Stop 06/20/16 at 10:29 Non-Formulary Medication (Non-Formulary Insulin) 35 unit QAM SC ; Start 06/19/16 at 09:00 Patient Own Medication 1.8 ea DAILY SC ; Start 06/19/16 at 09:00 Ciprofloxacin (Cipro) 500 mg DAILY@06 PO ; Start 06/19/16 at 06:00; Stop at 05:59 BLANK HOFFMAN MD Jun 18, 2016 21:30
[2016-06-19] VITALS (18 sets, daily range): BP systolic 146–176; BP diastolic 36–72; PULSE 38–80; RESP 16–31
[2016-06-19] MEDS: CIPROFLOXACIN 500 MG TAB PO SCH (06:49)
[2016-06-19] MEDS: PANTOPRAZOLE 40 MG INJ IV SCH (06:49)
[2016-06-19] MEDS ORDERED: LIDOCAINE 2% (SDV) 5 ML INJ ONE (07:00)
[2016-06-19] MEDS ORDERED: GLYCOPYRROLATE 0.4 MG INJ ONE (07:00)
[2016-06-19] MEDS ORDERED: PROPOFOL 200 MG INJ ONE (07:00)
[2016-06-19] MEDS: REPAGLINIDE 2 MG TAB PO SCH ×3 (07:30→17:13)
[2016-06-19 07:36] LABS: ADD SCAN DIFF NO
[2016-06-19 07:40] LABS: BASOPHIL # 0.1 10^3/ul (0.0-0.1); BASOPHILS % 0.4 % (0.0-2.0); EOSINOPHILS # 0.1 10^3/ul (0.0-0.5); EOSINOPHILS % 0.7 % (0.0-7.0); HEMATOCRIT 27.5 % (37.0-47.0); LYMPHOCYTES # 1.9 10^3/ul (0.8-2.9); LYMPHOCYTES % 17.2 % (15.0-51.0); MEAN CORPUSCULAR HGB CONC 33.1 g/dl (32.0-37.0); MEAN CORPUSCULAR VOLUME 96.8 fl (82.0-101.0); MEAN PLATELET VOLUME 11.1 fl (7.4-10.4); MONOCYTE # 1.1 10^3/ul (0.3-0.9); MONOCYTES % 9.8 % (0.0-11.0); NEUTROPHILS % 71.4 % (39.0-77.0); NUCLEATED RED BLOOD CELLS% 0.3 /100WBC (0.0-0.0); PLATELET COUNT 163 10^3/UL (140-415); RED BLOOD COUNT 2.84 10^6/ul (4.20-5.40); RED CELL DISTRIBUTION WIDTH 16.2 % (11.5-14.5); WHITE BLOOD COUNT 11.3 10^3/ul (4.8-10.8)
[2016-06-19 07:49] LABS: POTASSIUM 3.9 mmol/L (3.5-5.1)
[2016-06-19 07:52] LABS: CREATININE 3.67 mg/dl (0.44-1.00)
[2016-06-19 08:18] LABS: HEMOGLOBIN 9.1 g/dl (12.0-16.0)
[2016-06-19 08:35] LABS: INR 1.05; PROTIME 13.7 Sec (12.2-14.2); PT RATIO 1.1
[2016-06-19 08:36] LABS: PARTIAL THROMBOPLASTIN TIME 31.5 Sec (25.0-35.0)
[2016-06-19] MEDS: FUROSEMIDE 40 MG TAB PO SCH ×2 (09:00→14:47)
[2016-06-19] MEDS: VICTOZA 18 MG/3 ML SC SCH (09:00)
[2016-06-19] MEDS: NIFEdipine (XL) 60 MG TAB PO SCH ×3 (09:00→21:28)
[2016-06-19] MEDS: FAMOTIDINE 20 MG TAB PO SCH ×2 (09:00→14:46)
[2016-06-19] MEDS: CHOLECALCIFEROL 2,000 UNIT CAP PO SCH ×2 (09:00→14:47)
[2016-06-19] MEDS: EZETIMIBE 10 MG TAB PO SCH ×2 (09:00→14:47)
[2016-06-19] MEDS: [UNRECOGNIZED DRUG - OTHER] SC SCH ×2 (09:00→14:45)
[2016-06-19] MEDS: ASCORBIC ACID 500 MG TAB PO SCH ×2 (09:00→14:47)
[2016-06-19] MEDS: ISOSORBIDE MONONITRATE(SR)30 MG TAB PO SCH ×2 (09:00→14:48)
[2016-06-19] MEDS: INSULIN ASPART [NOVOLOG] 3 ML PEN SC SCH ×5 (09:00→21:47)
[2016-06-19] MEDS: TRESIBA U SC SCH ×2 (09:00→14:45)
[2016-06-19] MEDS: PEG/ELECTROLYTES 4L BTL PO SCH (10:30)
[2016-06-19] MEDS ORDERED: hydrALAzine 20 MG INJ IV PRN ×2 (13:30→17:30)
[2016-06-19] MEDS: METOCLOPRAMIDE 10 MG INJ IV SCH (14:00)
--- NOTE | 2016-06-19 17:12 | CONS ---
Date/Time of Note Date/Time of Note DATE: 06/19/16 TIME: 17:06 Assessment/Plan Assessment/Plan Chief Complaint/Hosp Course IMPRESSION: 1. Bradycardia to the 30s, question if due to beta camron, likely in the setting of generalized conduction system defects given right bundle branch block and first-degree atrioventricular block.-Having recurrently today to 40's with questionable episode of mobitz 2 during HD 2. Abnormal electrocardiogram with right bundle block, first-degree atrioventricular block. Assess for acute coronary syndrome.-negative troponin x 3 3. Hypertension-elevated. NLEF with DD by echo this admit 4. Dyslipidemia. 5. Anemia. 6. Gastrointestinal bleed s/p endoscopy today 7. End-stage renal disease on hemodialysis. 8. Diabetes mellitus. 9. History of cerebrovascular accident. Recc: -Tele -serial ecg's -Continue Procardia XL/imdur -add hydralazine to imprpve BP -No thais agents -Will continue to follow for possible need for PPM -Continue zetia -HD for volume -follow-up results of endoscopy done today Problems: Consultation Date/Type/Reason Admit Date/Time Jun 17, 2016 at 19:36 Initial Consult Date 06/18/16 Type of Consultation: Cardiology Reason for Consultation Bradycardia Referring Provider: BLANK HOFFMAN MD Exam/Review of Systems Vital Signs Vitals Vital Signs Date Time Temp Pulse Resp B/P Pulse Ox O2 Delivery O2 Flow Rate FiO2 06/19/16 16:33 45 146/51 06/19/16 15:56 98.0 20 94 06/19/16 13:41 Room Air 06/19/16 13:34 8.0 Intake and Output 06/18/16 06/18/16 06/19/16 15:00 23:00 07:00 Intake Total 1760 ml Output Total 2500 ml Balance -740 ml Exam Review of Systems: CONSTITUTIONAL: No fevers, chills. PULMONARY: No sob CARDIOVASCULAR: No chest pain/palpitations GASTROINTESTINAL: No nausea/vomiting. GENITOURINARY: No hematuria/dysuria. MUSCULOSKELETAL: No myagias/arthalgias. PSYCHIATRIC: The patient denies depression. NEUROLOGIC: mild weakness Constitutional: alert Psych: no complaints Head: normocephalic ENMT: mucosa pink and moist Neck: jvd (9 cm water), supple Respiratory: diminished breath sounds (at bases/B) Cardiovascular: other (BRadycardic, regular rhythm) Gastrointestinal: non-tender, soft Musculoskeletal: muscle weakness (mild generalized) Extremities: edema (trace/B) Neurological: focal weakness Results Result Diagram: 06/19/16 0630 06/19/16 0630 Results 24 hrs Laboratory Tests Test 06/18/16 17:28 06/18/16 20:03 06/19/16 06:30 06/19/16 07:49 Bedside Glucose 160 154 199 White Blood Count 11.3 #H Red Blood Count 2.84 #L Hemoglobin 9.1 #L Hematocrit 27.5 #L Mean Corpuscular Volume 96.8 Mean Corpuscular Hemoglobin 32.0 Mean Corpuscular Hemoglobin Concent 33.1 Red Cell Distribution Width 16.2 H Platelet Count 163 Mean Platelet Volume 11.1 H Neutrophils % 71.4 Lymphocytes % 17.2 Monocytes % 9.8 Eosinophils % 0.7 Basophils % 0.4 Nucleated Red Blood Cells % 0.3 H Neutrophils # 8.0 H Lymphocytes # 1.9 Monocytes # 1.1 H Eosinophils # 0.1 Basophils # 0.1 Nucleated Red Blood Cells # 0.0 Prothrombin Time 13.7 Prothrombin Time Ratio 1.1 INR International Normalized Ratio 1.05 Activated Partial Thromboplast Time 31.5 Sodium Level 133 L Potassium Level 3.8 Chloride Level 91 L Carbon Dioxide Level 26 Anion Gap 20 H Blood Urea Nitrogen 25 H Creatinine 3.67 H Glucose Level 191 # Calcium Level 9.0 Test 06/19/16 13:58 06/19/16 16:52 Bedside Glucose 203 188 Medications Medications Current Medications EZETIMIBE (Zetia) 10 mg DAILY PO Last administered on 06/19/16 14:47; Admin Dose 10 MG; Start 06/18/16 at 09:00 Furosemide (Lasix) 40 mg DAILY PO Last administered on 06/19/16 14:47; Admin Dose 40 MG; Start 06/18/16 at 09:00 Isosorbide Mononitrate (Imdur) 30 mg DAILY PO Last administered on 06/19/16 14: 48; Admin Dose 30 MG; Start 06/18/16 at 09:00 Nifedipine (Procardia Xl) 60 mg BID PO Last administered on 06/19/16 14:46; Admin Dose 60 MG; Start 06/17/16 at 21:00 Nitroglycerin (Nitroglycerin (Sl Tab) 0.4 Mg) 1 tab [id number] PRN SL CHEST PAIN ; Start 06/17/16 at 19:30 Ascorbic Acid (Vitamin C) 500 mg DAILY PO Last administered on 06/19/16 14:47; Admin Dose 500 MG; Start 06/18/16 at 09:00 Ondansetron HCl (Zofran Inj) 4 mg Q6H PRN IV NAUSEA AND/OR VOMITING; Start 06/17 at 19:30 Acetaminophen (Tylenol Tab) 650 mg Q6H PRN PO PAIN LEVEL 1-3 OR FEVER Last administered on 06/18/16 21:10; Admin Dose 650 MG; Start 06/17/16 at 19:30 Docusate Sodium (Colace) 100 mg Q12H PRN PO CONSTIPATION; Start 06/17/16 at 19: 30 Cholecalciferol (Vitamin D) 2,000 unit DAILY PO Last administered on 06/19/16 14:47; Admin Dose 2,000 UNIT; Start 06/18/16 at 09:00 Miscellaneous Information 1 ea NOTE XX ; Start 06/17/16 at 20:30 Glucose (Glutose) 15 gm Q15M PRN PO DECREASED GLUCOSE; Start 06/17/16 at 20:30 Glucose (Glutose) 22.5 gm Q15M PRN PO DECREASED GLUCOSE; Start 06/17/16 at 20:30 Dextrose (D50w Syringe) 25 ml Q15M PRN IV DECREASED GLUCOSE; Start 06/17/16 at 20:30 Dextrose (D50w Syringe) 50 ml Q15M PRN IV DECREASED GLUCOSE; Start 06/17/16 at 20:30 Glucagon (Glucagen) 1 mg Q15M PRN IM DECREASED GLUCOSE; Start 06/17/16 at 20:30 Glucose (Glutose) 15 gm Q15M PRN BUCCAL DECREASED GLUCOSE; Start 06/17/16 at 20: 30 Metoclopramide HCl (Reglan) 10 mg ONCE IV Last administered on 06/18/16 20:53; Admin Dose 10 MG; Start 06/18/16 at 10:30; Stop 06/20/16 at 10:29 Polyethylene Glycol/ Electrolytes (Golytely) 2,000 ml ONCE PO Last administered on 06/18/16 20:53; Admin Dose 2,000 ML; Start 06/18/16 at 10:30; Stop 06/20/16 at 10:29 Non-Formulary Medication (Non-Formulary Insulin) 35 unit QAM SC Last administered on 06/19/16 14:45; Admin Dose 35 UNIT; Start 06/19/16 at 09:00 Patient Own Medication 1.8 ea DAILY SC Last administered on 06/19/16 09:00; Admin Dose 1.8 EA; Start 06/19/16 at 09:00 Ciprofloxacin (Cipro) 500 mg DAILY@06 PO Last administered on 06/19/16 06:49; Admin Dose 500 MG; Start 06/19/16 at 06:00; Stop 06/24/16 at 05:59 Famotidine (Pepcid) 20 mg DAILY PO Last administered on 06/19/16 14:46; Admin Dose 20 MG; Start 06/19/16 at 09:00 Insulin Glargine (Lantus) 4 unit ONCE SC ; Start 06/20/16 at 08:00; Stop 06/20/16 at 15:00 DORIS VARELA Jun 19, 2016 17:12
--- NOTE | 2016-06-19 19:20 | CONS ---
Date/Time of Note Date/Time of Note DATE: 06/19/16 TIME: 19:17 Assessment/Plan Assessment/Plan Additional Assessment/Plan Pt to get hd in am Add epo for rx of anemia Consultation Date/Type/Reason Admit Date/Time Jun 17, 2016 at 19:36 Initial Consult Date 06/18/16 Type of Consultation: renal Referring Provider: BLANK HOFFMAN MD 24 HR Interval Summary Constitutional: improved, no complaints Exam/Review of Systems Vital Signs Vitals Vital Signs Date Time Temp Pulse Resp B/P Pulse Ox O2 Delivery O2 Flow Rate FiO2 06/19/16 16:33 45 146/51 06/19/16 15:56 98.0 20 94 06/19/16 13:41 Room Air 06/19/16 13:34 8.0 Intake and Output 06/18/16 06/18/16 06/19/16 15:00 23:00 07:00 Intake Total 1760 ml Output Total 2500 ml Balance -740 ml Exam Constitutional: alert, oriented, well developed Psych: nl mood/affect, no complaints Head: atraumatic, normocephalic Eyes: EOMI, PERRL, nl conjunctiva, nl lids, nl sclera ENMT: nl external ears & nose, nl lips & teeth, nl nasal mucosa & septum Neck: non-tender, supple Respiratory: clear to auscultation, normal air movement Cardiovascular: nl pulses, regular rate and rhythm Gastrointestinal: nl liver, spleen, non-tender, soft Musculoskeletal: nl extremities to inspection, nl gait and stance, other (avf lt arm) Extremities: normal pulses Neurological: PRODUCT MANAGEMENT CONSULTANT II-XII intact, nl mental status, other (rt hemiplegia) Skin: nl turgor, No rash or lesions Lymph: nl lymph nodes Additional Comments Hbg has improved Results Result Diagram: 06/19/16 0630 06/19/16 0630 Results 24 hrs Laboratory Tests Test 06/18/16 20:03 06/19/16 06:30 06/19/16 07:49 06/19/16 13:58 Bedside Glucose 154 199 203 White Blood Count 11.3 #H Red Blood Count 2.84 #L Hemoglobin 9.1 #L Hematocrit 27.5 #L Mean Corpuscular Volume 96.8 Mean Corpuscular Hemoglobin 32.0 Mean Corpuscular Hemoglobin Concent 33.1 Red Cell Distribution Width 16.2 H Platelet Count 163 Mean Platelet Volume 11.1 H Neutrophils % 71.4 Lymphocytes % 17.2 Monocytes % 9.8 Eosinophils % 0.7 Basophils % 0.4 Nucleated Red Blood Cells % 0.3 H Neutrophils # 8.0 H Lymphocytes # 1.9 Monocytes # 1.1 H Eosinophils # 0.1 Basophils # 0.1 Nucleated Red Blood Cells # 0.0 Prothrombin Time 13.7 Prothrombin Time Ratio 1.1 INR International Normalized Ratio 1.05 Activated Partial Thromboplast Time 31.5 Sodium Level 133 L Potassium Level 3.8 Chloride Level 91 L Carbon Dioxide Level 26 Anion Gap 20 H Blood Urea Nitrogen 25 H Creatinine 3.67 H Glucose Level 191 # Calcium Level 9.0 Test 06/19/16 16:52 Bedside Glucose 188 Medications Medications Current Medications EZETIMIBE (Zetia) 10 mg DAILY PO Last administered on 06/19/16 14:47; Admin Dose 10 MG; Start 06/18/16 at 09:00 Furosemide (Lasix) 40 mg DAILY PO Last administered on 06/19/16 14:47; Admin Dose 40 MG; Start 06/18/16 at 09:00 Isosorbide Mononitrate (Imdur) 30 mg DAILY PO Last administered on 06/19/16 14: 48; Admin Dose 30 MG; Start 06/18/16 at 09:00 Nifedipine (Procardia Xl) 60 mg BID PO Last administered on 06/19/16 14:46; Admin Dose 60 MG; Start 06/17/16 at 21:00 Nitroglycerin (Nitroglycerin (Sl Tab) 0.4 Mg) 1 tab [id number] PRN SL CHEST PAIN ; Start 06/17/16 at 19:30 Ascorbic Acid (Vitamin C) 500 mg DAILY PO Last administered on 06/19/16 14:47; Admin Dose 500 MG; Start 06/18/16 at 09:00 Ondansetron HCl (Zofran Inj) 4 mg Q6H PRN IV NAUSEA AND/OR VOMITING; Start 06/17 at 19:30 Acetaminophen (Tylenol Tab) 650 mg Q6H PRN PO PAIN LEVEL 1-3 OR FEVER Last administered on 06/18/16 21:10; Admin Dose 650 MG; Start 06/17/16 at 19:30 Docusate Sodium (Colace) 100 mg Q12H PRN PO CONSTIPATION; Start 06/17/16 at 19: 30 Cholecalciferol (Vitamin D) 2,000 unit DAILY PO Last administered on 06/19/16 14:47; Admin Dose 2,000 UNIT; Start 06/18/16 at 09:00 Miscellaneous Information 1 ea NOTE XX ; Start 06/17/16 at 20:30 Glucose (Glutose) 15 gm Q15M PRN PO DECREASED GLUCOSE; Start 06/17/16 at 20:30 Glucose (Glutose) 22.5 gm Q15M PRN PO DECREASED GLUCOSE; Start 06/17/16 at 20:30 Dextrose (D50w Syringe) 25 ml Q15M PRN IV DECREASED GLUCOSE; Start 06/17/16 at 20:30 Dextrose (D50w Syringe) 50 ml Q15M PRN IV DECREASED GLUCOSE; Start 06/17/16 at 20:30 Glucagon (Glucagen) 1 mg Q15M PRN IM DECREASED GLUCOSE; Start 06/17/16 at 20:30 Glucose (Glutose) 15 gm Q15M PRN BUCCAL DECREASED GLUCOSE; Start 06/17/16 at 20: 30 Metoclopramide HCl (Reglan) 10 mg ONCE IV Last administered on 06/18/16 20:53; Admin Dose 10 MG; Start 06/18/16 at 10:30; Stop 06/20/16 at 10:29 Polyethylene Glycol/ Electrolytes (Golytely) 2,000 ml ONCE PO Last administered on 06/18/16 20:53; Admin Dose 2,000 ML; Start 06/18/16 at 10:30; Stop 06/20/16 at 10:29 Non-Formulary Medication (Non-Formulary Insulin) 35 unit QAM SC Last administered on 06/19/16 14:45; Admin Dose 35 UNIT; Start 06/19/16 at 09:00 Patient Own Medication 1.8 ea DAILY SC Last administered on 06/19/16 09:00; Admin Dose 1.8 EA; Start 06/19/16 at 09:00 Ciprofloxacin (Cipro) 500 mg DAILY@06 PO Last administered on 06/19/16 06:49; Admin Dose 500 MG; Start 06/19/16 at 06:00; Stop 06/24/16 at 05:59 Famotidine (Pepcid) 20 mg DAILY PO Last administered on 4/8/17at 14:46; Admin Dose 20 MG; Start 06/19/16 at 09:00 Insulin Glargine (Lantus) 4 unit ONCE SC ; Start 06/20/16 at 08:00; Stop 06/20/16 at 15:00 Hydralazine HCl (Apresoline) 25 mg Q8 PO ; Start 06/19/16 at 22:00 Hydralazine HCl (Apresoline) 10 mg Q4H PRN IV SBP>170; Start 06/19/16 at 17:30 Epoetin Michael (Epogen (Esrd)) 10,000 units ONCE ONCE SC ; Start 06/19/16 at 19:30 ; Stop 06/19/16 at 19:31 EMANI MONROY MD Jun 19, 2016 19:20
[2016-06-19] MEDS ORDERED: EPOETIN 10000 UNITS/1 ML INJ (ESRD) SC ONE (19:30)
--- NOTE | 2016-06-19 21:33 | PN ---
Date/Time of Note Date/Time of Note DATE: 06/19/16 TIME: 21:23 Assessment/Plan VTE Prophylaxis VTE Prophylaxis Intervention: SCD's Lines/Catheters [facility] Peripheral IV Urinary Cath still in place: No Assessment/Plan Problems: (1) End stage renal disease Status: Chronic Comment: Hemodialysis per nephrology team. (2) History of CVA with residual deficit Status: Chronic Comment: No new issues or events (3) Type 2 diabetes mellitus with diabetic chronic kidney disease Status: Chronic Comment: Decent glycemic control today (4) Coronary artery disease Status: Chronic Comment: No new issues or events Appreciate Cardiology input Qualifiers: Coronary Disease-Associated Artery/Lesion type: unspecified vessel or lesion type [place] vs. transplanted heart: [place] heart Associated angina: without angina Qualified Code: I25.10 - Coronary artery disease involving [place] heart without angina pectoris, unspecified vessel or lesion type (5) Anemia Status: Acute Comment: Improved H/H. S/P endoscopy today Subjective 24 Hr Interval Summary Free Text/Dictation Patient states feeling better. Exam/Review of Systems Vital Signs Vitals Vital Signs Date Time Temp Pulse Resp B/P Pulse Ox O2 Delivery O2 Flow Rate FiO2 06/19/16 20:31 98.5 51 16 164/52 98 06/19/16 13:41 Room Air 06/19/16 13:34 8.0 Intake and Output 06/18/16 06/18/16 06/19/16 15:00 23:00 07:00 Intake Total 1760 ml Output Total 2500 ml Balance -740 ml Exam Constitutional: alert, obese, oriented Neck: supple Respiratory: clear to auscultation, normal air movement Cardiovascular: nl pulses, regular rate and rhythm Gastrointestinal: soft Musculoskeletal: nl extremities to inspection Extremities: normal pulses Results POC glucose and labs reviewed Result Diagram: 06/19/16 0630 06/19/16 0630 Results 24 hrs Laboratory Tests Test 06/19/16 06:30 06/19/16 07:49 06/19/16 13:58 06/19/16 16:52 White Blood Count 11.3 #H Red Blood Count 2.84 #L Hemoglobin 9.1 #L Hematocrit 27.5 #L Mean Corpuscular Volume 96.8 Mean Corpuscular Hemoglobin 32.0 Mean Corpuscular Hemoglobin Concent 33.1 Red Cell Distribution Width 16.2 H Platelet Count 163 Mean Platelet Volume 11.1 H Neutrophils % 71.4 Lymphocytes % 17.2 Monocytes % 9.8 Eosinophils % 0.7 Basophils % 0.4 Nucleated Red Blood Cells % 0.3 H Neutrophils # 8.0 H Lymphocytes # 1.9 Monocytes # 1.1 H Eosinophils # 0.1 Basophils # 0.1 Nucleated Red Blood Cells # 0.0 Prothrombin Time 13.7 Prothrombin Time Ratio 1.1 INR International Normalized Ratio 1.05 Activated Partial Thromboplast Time 31.5 Sodium Level 133 L Potassium Level 3.8 Chloride Level 91 L Carbon Dioxide Level 26 Anion Gap 20 H Blood Urea Nitrogen 25 H Creatinine 3.67 H Glucose Level 191 # Calcium Level 9.0 Bedside Glucose 199 203 188 Medications Medications Current Medications EZETIMIBE (Zetia) 10 mg DAILY PO Last administered on 06/19/16 14:47; Admin Dose 10 MG; Start 06/18/16 at 09:00 Furosemide (Lasix) 40 mg DAILY PO Last administered on 06/19/16 14:47; Admin Dose 40 MG; Start 06/18/16 at 09:00 Isosorbide Mononitrate (Imdur) 30 mg DAILY PO Last administered on 06/19/16 14: 48; Admin Dose 30 MG; Start 06/18/16 at 09:00 Nifedipine (Procardia Xl) 60 mg BID PO Last administered on 06/19/16 14:46; Admin Dose 60 MG; Start 06/17/16 at 21:00 Nitroglycerin (Nitroglycerin (Sl Tab) 0.4 Mg) 1 tab [id number] PRN SL CHEST PAIN ; Start 06/17/16 at 19:30 Ascorbic Acid (Vitamin C) 500 mg DAILY PO Last administered on 06/19/16 14:47; Admin Dose 500 MG; Start 06/18/16 at 09:00 Ondansetron HCl (Zofran Inj) 4 mg Q6H PRN IV NAUSEA AND/OR VOMITING; Start 06/17 at 19:30 Acetaminophen (Tylenol Tab) 650 mg Q6H PRN PO PAIN LEVEL 1-3 OR FEVER Last administered on 06/18/16 21:10; Admin Dose 650 MG; Start 06/17/16 at 19:30 Docusate Sodium (Colace) 100 mg Q12H PRN PO CONSTIPATION; Start 06/17/16 at 19: 30 Cholecalciferol (Vitamin D) 2,000 unit DAILY PO Last administered on 06/19/16 14:47; Admin Dose 2,000 UNIT; Start 06/18/16 at 09:00 Miscellaneous Information 1 ea NOTE XX ; Start 06/17/16 at 20:30 Glucose (Glutose) 15 gm Q15M PRN PO DECREASED GLUCOSE; Start 06/17/16 at 20:30 Glucose (Glutose) 22.5 gm Q15M PRN PO DECREASED GLUCOSE; Start 06/17/16 at 20:30 Dextrose (D50w Syringe) 25 ml Q15M PRN IV DECREASED GLUCOSE; Start 06/17/16 at 20:30 Dextrose (D50w Syringe) 50 ml Q15M PRN IV DECREASED GLUCOSE; Start 06/17/16 at 20:30 Glucagon (Glucagen) 1 mg Q15M PRN IM DECREASED GLUCOSE; Start 06/17/16 at 20:30 Glucose (Glutose) 15 gm Q15M PRN BUCCAL DECREASED GLUCOSE; Start 06/17/16 at 20: 30 Metoclopramide HCl (Reglan) 10 mg ONCE IV Last administered on 06/18/16 20:53; Admin Dose 10 MG; Start 06/18/16 at 10:30; Stop 06/20/16 at 10:29 Polyethylene Glycol/ Electrolytes (Golytely) 2,000 ml ONCE PO Last administered on 06/18/16 20:53; Admin Dose 2,000 ML; Start 06/18/16 at 10:30; Stop 06/20/16 at 10:29 Non-Formulary Medication (Non-Formulary Insulin) 35 unit QAM SC Last administered on 06/19/16 14:45; Admin Dose 35 UNIT; Start 06/19/16 at 09:00 Patient Own Medication 1.8 ea DAILY SC Last administered on 06/19/16 09:00; Admin Dose 1.8 EA; Start 06/19/16 at 09:00 Ciprofloxacin (Cipro) 500 mg DAILY@06 PO Last administered on 06/19/16 06:49; Admin Dose 500 MG; Start 06/19/16 at 06:00; Stop 06/24/16 at 05:59 Famotidine (Pepcid) 20 mg DAILY PO Last administered on 06/19/16 14:46; Admin Dose 20 MG; Start 06/19/16 at 09:00 Insulin Glargine (Lantus) 4 unit ONCE SC ; Start 06/20/16 at 08:00; Stop 06/20/16 at 15:00 Hydralazine HCl (Apresoline) 25 mg Q8 PO ; Start 06/19/16 at 22:00 Hydralazine HCl (Apresoline) 10 mg Q4H PRN IV SBP>170; Start 06/19/16 at 17:30 AKBAR IVORY MD Jun 19, 2016 21:33
[2016-06-20] VITALS (19 sets, daily range): BP systolic 108–145; BP diastolic 50–67; PULSE 68–79; RESP 18–20
--- NOTE | 2016-06-20 03:37 | GILP ---
DATE OF PROCEDURE: PROCEDURE: Esophagogastroduodenoscopy. PREOPERATIVE DIAGNOSIS: The patient presenting with history of anemia and occult gastrointestinal b leeding, rule out peptic ulcer disease, gastritis, etc. POSTOPERATIVE DIAGNOSES: 1. Diffuse erosive gastritis. 2. Irregular gastroesophageal junction. 3. Paucity of folds noted in the third part of the duodenum. Biopsies were done. DESCRIPTION OF PROCEDURE: After informed written consent was obtained, the patient was asked to lie on the left lateral side. Intravenous anesthesia was given by anesthesiologist, Dr. Garcia. Wh en the patient became somnolent, the Olympus video upper endoscope was introduced into the oropharyn x, then into the esophagus. Esophagus showed GE junction to be irregular but no inflammatory change s noted. Scope, at this time, was advanced into the stomach. Stomach showed multiple erosions scat tered along the mucosal surface. Biopsy was done from the antrum, the lesser curvature, and the fun dus to rule out H. pylori infection. The duodenum showed evidence of a paucity of the folds in the second and third part. Biopsies were done to rule out celiac sprue. Scope at this time was withdra wn and no additional abnormalities detected, and the procedure was terminated. PLAN: 1. Recommend proton pump inhibitor therapy, Protonix 40 mg a day. 2. Meanwhile, wait for the pathology report. Dictated By: EARNEST SIN/HESHAM Conf#: [id number] DID#: [id number] CC: BLANK HOFFMAN MD;*EndCC*
--- NOTE | 2016-06-20 03:40 | GILP ---
DATE OF PROCEDURE: PROCEDURE: Colonoscopy. PREOPERATIVE DIAGNOSIS: The patient presenting with history of severe anemia and occult gastrointes tinal bleeding, rule out colorectal neoplasm. POSTOPERATIVE DIAGNOSES: 1. Two polyps noted; one in the proximal transverse colon and another one in the distal descending colon. Biopsies were done, polyps were removed, and also biopsies were done to rule out microscopic colitis. 2. Moderate degree of internal and external hemorrhoids were noted. DESCRIPTION OF PROCEDURE: After the informed written consent was obtained, the patient was asked to lie on the left lateral side. Intravenous anesthesia was given by anesthesiologist, Dr. Garcia. When the patient became somnolent, the Olympus video colonoscope was introduced into the rectum, a nd scope was advanced all the way to the cecum. A 3 mm flat polyp was noted in the proximal transve rse colon which was not bleeding and appeared to be benign. This was removed with a cold biopsy for ceps. A 4 mm polyp also was noted in the distal descending colon. This was also benign-appearing w ith no bleeding. Biopsy was done, and polyp was removed with a cold biopsy forceps. The rest of th e colon was examined which appeared normal. A couple of random biopsies were obtained from the colo n to rule out microscopic colitis. On the way out, a moderate degree of external hemorrhoids and mo derate degree of internal hemorrhoids were noted, and the procedure was terminated. PLAN: Recommend wait for the pathology report. Dictated By: EARNEST SIN/NTS Conf#: [id number] DID#: [id number] CC: BLANK HOFFMAN MD;*End*
[2016-06-20] MEDS: CIPROFLOXACIN 500 MG TAB PO SCH (06:35)
[2016-06-20] MEDS ORDERED: INSULIN GLARGINE [LANtus] 3 ML PEN SC SCH (08:00)
[2016-06-20] MEDS: INSULIN ASPART [NOVOLOG] 3 ML PEN SC SCH ×4 (08:00→20:27)
[2016-06-20] MEDS: CHOLECALCIFEROL 2,000 UNIT CAP PO SCH (08:52)
[2016-06-20] MEDS: EZETIMIBE 10 MG TAB PO SCH (08:52)
[2016-06-20] MEDS: REPAGLINIDE 2 MG TAB PO SCH ×3 (08:55→17:22)
[2016-06-20] MEDS: NIFEdipine (XL) 60 MG TAB PO SCH ×2 (08:55→20:18)
[2016-06-20] MEDS: ISOSORBIDE MONONITRATE(SR)30 MG TAB PO SCH (08:55)
[2016-06-20] MEDS: FUROSEMIDE 40 MG TAB PO SCH (08:56)
[2016-06-20] MEDS: FAMOTIDINE 20 MG TAB PO SCH (08:56)
[2016-06-20] MEDS: ASCORBIC ACID 500 MG TAB PO SCH (08:56)
[2016-06-20] MEDS: VICTOZA 18 MG/3 ML SC SCH (09:02)
[2016-06-20] MEDS: [UNRECOGNIZED DRUG - OTHER] SC SCH (09:04)
[2016-06-20] MEDS: TRESIBA U SC SCH (09:04)
--- NOTE | 2016-06-20 14:50 | CONS ---
Date/Time of Note Date/Time of Note DATE: 06/20/16 TIME: 14:46 Assessment/Plan Assessment/Plan Chief Complaint/Hosp Course IMPRESSION: 1. Bradycardia to the 30s, question if due to beta camron, likely in the setting of generalized conduction system defects given right bundle branch block and first-degree atrioventricular block.-Had recurretly with questionable episode of second degree HB, now again improved 2. Abnormal electrocardiogram with right bundle block, first-degree atrioventricular block. Assess for acute coronary syndrome.-negative troponin x 3 3. Hypertension-elevated. NLEF with DD by echo this admit 4. Dyslipidemia. 5. Anemia. 6. Gastrointestinal bleed s/p endoscopy 06/19 7. End-stage renal disease on hemodialysis. 8. Diabetes mellitus. 9. History of cerebrovascular accident. Recc: -Tele -serial ecg's -Continue Procardia XL/imdur/hydralazine with reasonable BP control/somewhat labile -No thais agents and follow currently improved HR closely -Will continue to follow for possible need for PPM -Continue zetia -HD for volume Problems: Consultation Date/Type/Reason Admit Date/Time Jun 17, 2016 at 19:36 Initial Consult Date 06/18/16 Type of Consultation: Cardiology Reason for Consultation bradycardia Referring Provider: BLANK HOFFMAN MD Exam/Review of Systems Vital Signs Vitals Vital Signs Date Time Temp Pulse Resp B/P Pulse Ox O2 Delivery O2 Flow Rate FiO2 06/20/16 12:00 69 06/20/16 11:29 97.9 19 110/50 96 06/19/16 13:41 Room Air 06/19/16 13:34 8.0 Intake and Output 06/19/16 06/19/16 06/20/16 15:00 23:00 07:00 Intake Total 2000 ml 800 ml 900 ml Balance 2000 ml 800 ml 900 ml Exam Review of Systems: CONSTITUTIONAL: No fevers, chills. PULMONARY: No sob CARDIOVASCULAR: No chest pain/palpitations GASTROINTESTINAL: No nausea/vomiting. GENITOURINARY: No hematuria/dysuria. MUSCULOSKELETAL: No myagias/arthalgias. PSYCHIATRIC: The patient denies depression. NEUROLOGIC: mild weakness Constitutional: alert, oriented Psych: no complaints Head: normocephalic ENMT: mucosa pink and moist Neck: supple Respiratory: diminished breath sounds (at bases/B) Cardiovascular: regular rate and rhythm Gastrointestinal: non-tender, soft Musculoskeletal: muscle weakness (generalized) Extremities: edema (trace/B) Neurological: other (facial droop) Results Result Diagram: 06/19/16 0630 06/19/16 0630 Results 24 hrs Laboratory Tests Test 06/19/16 16:52 06/19/16 21:26 06/20/16 08:03 06/20/16 11:38 Bedside Glucose 188 299 H 75 197 Medications Medications Current Medications EZETIMIBE (Zetia) 10 mg DAILY PO Last administered on 06/20/16 08:52; Admin Dose 10 MG; Start 06/18/16 at 09:00 Furosemide (Lasix) 40 mg DAILY PO Last administered on 06/20/16 08:56; Admin Dose 40 MG; Start 06/18/16 at 09:00 Isosorbide Mononitrate (Imdur) 30 mg DAILY PO Last administered on 06/20/16 08: 55; Admin Dose 30 MG; Start 06/18/16 at 09:00 Nifedipine (Procardia Xl) 60 mg BID PO Last administered on 06/20/16 08:55; Admin Dose 60 MG; Start 06/17/16 at 21:00 Nitroglycerin (Nitroglycerin (Sl Tab) 0.4 Mg) 1 tab [id number] PRN SL CHEST PAIN ; Start 06/17/16 at 19:30 Ondansetron HCl (Zofran Inj) 4 mg Q6H PRN IV NAUSEA AND/OR VOMITING; Start 06/17 at 19:30 Acetaminophen (Tylenol Tab) 650 mg Q6H PRN PO PAIN LEVEL 1-3 OR FEVER Last administered on 06/18/16 21:10; Admin Dose 650 MG; Start 06/17/16 at 19:30 Docusate Sodium (Colace) 100 mg Q12H PRN PO CONSTIPATION; Start 06/17/16 at 19: 30 Cholecalciferol (Vitamin D) 2,000 unit DAILY PO Last administered on 06/20/16 08:52; Admin Dose 2,000 UNIT; Start 06/18/16 at 09:00 Miscellaneous Information 1 ea NOTE XX ; Start 06/17/16 at 20:30 Glucose (Glutose) 15 gm Q15M PRN PO DECREASED GLUCOSE; Start 06/17/16 at 20:30 Glucose (Glutose) 22.5 gm Q15M PRN PO DECREASED GLUCOSE; Start 06/17/16 at 20:30 Dextrose (D50w Syringe) 25 ml Q15M PRN IV DECREASED GLUCOSE; Start 06/17/16 at 20:30 Dextrose (D50w Syringe) 50 ml Q15M PRN IV DECREASED GLUCOSE; Start 06/17/16 at 20:30 Glucagon (Glucagen) 1 mg Q15M PRN IM DECREASED GLUCOSE; Start 06/17/16 at 20:30 Glucose (Glutose) 15 gm Q15M PRN BUCCAL DECREASED GLUCOSE; Start 06/17/16 at 20: 30 Non-Formulary Medication (Non-Formulary Insulin) 35 unit QAM SC Last administered on 06/20/16 09:04; Admin Dose 35 UNIT; Start 06/19/16 at 09:00 Patient Own Medication 1.8 ea DAILY SC Last administered on 06/20/16 09:02; Admin Dose 1.8 EA; Start 06/19/16 at 09:00 Ciprofloxacin (Cipro) 500 mg DAILY@06 PO Last administered on 06/20/16 06:35; Admin Dose 500 MG; Start 06/19/16 at 06:00; Stop 06/24/16 at 05:59 Famotidine (Pepcid) 20 mg DAILY PO Last administered on 06/20/16 08:56; Admin Dose 20 MG; Start 06/19/16 at 09:00 Hydralazine HCl (Apresoline) 25 mg Q8 PO Last administered on 06/20/16 06:35; Admin Dose 25 MG; Start 06/19/16 at 22:00 Hydralazine HCl (Apresoline) 10 mg Q4H PRN IV SBP>170; Start 06/19/16 at 17:30 DORIS VARELA Jun 20, 2016 14:50
--- NOTE | 2016-06-20 17:37 | PN ---
Date/Time of Note Date/Time of Note DATE: 06/20/16 TIME: 17:30 Assessment/Plan VTE Prophylaxis VTE Prophylaxis Intervention: SCD's Lines/Catheters IV [facility] [place] Urinary Cath still in place: No Assessment/Plan Problems: (1) Anemia Status: Acute Comment: S/P endoscopy and colonoscopy. Erosive gastritis and polyps seen. Awaiting biopsy results. Also noted internal and external hemorrhoids. H?H pending for tomorrow. (2) Diabetes mellitus type 2 in obese Status: Chronic Comment: Decent glycemic control. (3) End stage renal disease Status: Chronic Comment: Hemodialysis per Dr. Bates Subjective 24 Hr Interval Summary Free Text/Dictation Patientcomplain of a "floating" like feeling while sleeping this morning. BP and Blood glucose stable at the time. Has since resolved. S/P hemodialysis. Exam/Review of Systems Vital Signs Vitals Vital Signs Date Time Temp Pulse Resp B/P Pulse Ox O2 Delivery O2 Flow Rate FiO2 06/20/16 16:48 68 16 06/20/16 15:20 97.9 119/52 95 06/19/16 13:41 Room Air 06/19/16 13:34 8.0 Intake and Output 06/19/16 06/19/16 06/20/16 15:00 23:00 07:00 Intake Total 2000 ml 800 ml 900 ml Balance 2000 ml 800 ml 900 ml Exam Constitutional: alert, obese, oriented, well developed Psych: nl mood/affect Neck: supple Respiratory: clear to auscultation Cardiovascular: nl pulses, regular rate and rhythm, systolic murmur Gastrointestinal: soft Musculoskeletal: nl extremities to inspection Extremities: normal pulses Neurological: other (Right facial paresis) Results POC glucose reviewed. Result Diagram: 06/19/1662906/19/16629 Results 24 hrs Laboratory Tests Test 06/19/16 21:26 06/20/16 08:03 06/20/16 11:38 06/20/16 17:05 Bedside Glucose 299 H 75 197 199 Medications Medications Current Medications EZETIMIBE (Zetia) 10 mg DAILY PO Last administered on 06/20/16 08:52; Admin Dose 10 MG; Start 06/18/16 at 09:00 Furosemide (Lasix) 40 mg DAILY PO Last administered on 06/20/16 08:56; Admin Dose 40 MG; Start 06/18/16 at 09:00 Isosorbide Mononitrate (Imdur) 30 mg DAILY PO Last administered on 06/20/16 08: 55; Admin Dose 30 MG; Start 06/18/16 at 09:00 Nifedipine (Procardia Xl) 60 mg BID PO Last administered on 06/20/16 08:55; Admin Dose 60 MG; Start 06/17/16 at 21:00 Nitroglycerin (Nitroglycerin (Sl Tab) 0.4 Mg) 1 tab [id number] PRN SL CHEST PAIN ; Start 06/17/16 at 19:30 Ondansetron HCl (Zofran Inj) 4 mg Q6H PRN IV NAUSEA AND/OR VOMITING; Start 06/17 at 19:30 Acetaminophen (Tylenol Tab) 650 mg Q6H PRN PO PAIN LEVEL 1-3 OR FEVER Last administered on 06/18/16 21:10; Admin Dose 650 MG; Start 06/17/16 at 19:30 Docusate Sodium (Colace) 100 mg Q12H PRN PO CONSTIPATION; Start 06/17/16 at 19: 30 Cholecalciferol (Vitamin D) 2,000 unit DAILY PO Last administered on 06/20/16 08:52; Admin Dose 2,000 UNIT; Start 06/18/16 at 09:00 Miscellaneous Information 1 ea NOTE XX ; Start 06/17/16 at 20:30 Glucose (Glutose) 15 gm Q15M PRN PO DECREASED GLUCOSE; Start 06/17/16 at 20:30 Glucose (Glutose) 22.5 gm Q15M PRN PO DECREASED GLUCOSE; Start 06/17/16 at 20:30 Dextrose (D50w Syringe) 25 ml Q15M PRN IV DECREASED GLUCOSE; Start 06/17/16 at 20:30 Dextrose (D50w Syringe) 50 ml Q15M PRN IV DECREASED GLUCOSE; Start 06/17/16 at 20:30 Glucagon (Glucagen) 1 mg Q15M PRN IM DECREASED GLUCOSE; Start 06/17/16 at 20:30 Glucose (Glutose) 15 gm Q15M PRN BUCCAL DECREASED GLUCOSE; Start 06/17/16 at 20: 30 Non-Formulary Medication (Non-Formulary Insulin) 35 unit QAM SC Last administered on 06/20/16 09:04; Admin Dose 35 UNIT; Start 06/19/16 at 09:00 Patient Own Medication 1.8 ea DAILY SC Last administered on 06/20/16 09:02; Admin Dose 1.8 EA; Start 06/19/16 at 09:00 Ciprofloxacin (Cipro) 500 mg DAILY@06 PO Last administered on 06/20/16 06:35; Admin Dose 500 MG; Start 06/19/16 at 06:00; Stop 06/24/16 at 05:59 Famotidine (Pepcid) 20 mg DAILY PO Last administered on 06/20/16 08:56; Admin Dose 20 MG; Start 06/19/16 at 09:00 Hydralazine HCl (Apresoline) 25 mg Q8 PO Last administered on 06/20/16 06:35; Admin Dose 25 MG; Start 06/19/16 at 22:00 Hydralazine HCl (Apresoline) 10 mg Q4H PRN IV SBP>170; Start 06/19/16 at 17:30 AKBAR IVORY MD Jun 20, 2016 17:37
--- NOTE | 2016-06-20 18:05 | CONS ---
DATE OF ADMISSION: 06/17/2016 DATE OF CONSULTATION: HISTORY OF PRESENT ILLNESS: The patient was seen by me because of occult gastrointestinal bleeding. I performed upper endoscopy, lower endoscopy, which showed evidence of no active bleeding. Gastri tis, esophagitis noted. Colon was really unremarkable. She had 2 polyps, which were biopsied. At this time, she has no complaints. LABORATORY WORKUP: The hemoglobin now is 9.1, WBC count 11.3. Potassium 3.8, creatinine 3.67, BUN is 25. CLINICAL IMPRESSION: The patient presenting with history of anemia, occult gastrointestinal bleedin g, esophagitis, gastritis, colon polyps. PLAN: Recommend wait for the pathology report of the polyps. Dictated By: EARNEST BULLOCK MD NC/NTS Conf#: [id number] DID#: [id number] CC: BLANK HOFFMAN MD; EARNEST BULLOCK MD;*EndCC*
[2016-06-20] MEDS ORDERED: EPOETIN 10000 UNITS/1 ML INJ (ESRD) SC SCH (19:00)
--- NOTE | 2016-06-20 19:16 | CONS ---
Date/Time of Note Date/Time of Note DATE: 06/20/16 TIME: 19:03 Assessment/Plan Assessment/Plan Additional Assessment/Plan Upper endoscopy shows gastritis & polyps were biopsied at colonoscopy. Await results. Cont'd Hospitalization Reason: Dc plans per Dr Negron Consultation Date/Type/Reason Admit Date/Time Jun 17, 2016 at 19:36 Initial Consult Date 06/18/16 Type of Consultation: renal Referring Provider: BLANK HOFFMAN MD 24 HR Interval Summary Free Text/Dictation Pt says,"I feel flighty"! Exam/Review of Systems Vital Signs Vitals Vital Signs Date Time Temp Pulse Resp B/P Pulse Ox O2 Delivery O2 Flow Rate FiO2 06/20/16 16:48 68 16 06/20/16 15:20 97.9 119/52 95 06/19/16 13:41 Room Air 06/19/16 13:34 8.0 Intake and Output 06/19/16 06/19/16 06/20/16 15:00 23:00 07:00 Intake Total 2000 ml 800 ml 900 ml Balance 2000 ml 800 ml 900 ml Exam Constitutional: alert, oriented, well developed Psych: anxiety Head: normocephalic Eyes: PERRL, nl conjunctiva ENMT: nl external ears & nose Neck: supple Respiratory: clear to auscultation Cardiovascular: regular rate and rhythm Gastrointestinal: soft Musculoskeletal: nl extremities to inspection Extremities: normal pulses Neurological: other (lt facial droop, rt sided hemiplegia) Skin: nl turgor Results Hct stable Result Diagram: 06/19/16 0630 06/19/16 0630 Results 24 hrs Laboratory Tests Test 06/19/16 21:26 06/20/16 08:03 06/20/16 11:38 06/20/16 17:05 Bedside Glucose 299 H 75 197 199 Medications Medications Current Medications EZETIMIBE (Zetia) 10 mg DAILY PO Last administered on 06/20/16 08:52; Admin Dose 10 MG; Start 06/18/16 at 09:00 Furosemide (Lasix) 40 mg DAILY PO Last administered on 06/20/16 08:56; Admin Dose 40 MG; Start 06/18/16 at 09:00 Isosorbide Mononitrate (Imdur) 30 mg DAILY PO Last administered on 06/20/16 08: 55; Admin Dose 30 MG; Start 06/18/16 at 09:00 Nifedipine (Procardia Xl) 60 mg BID PO Last administered on 06/20/16 08:55; Admin Dose 60 MG; Start 06/17/16 at 21:00 Nitroglycerin (Nitroglycerin (Sl Tab) 0.4 Mg) 1 tab [id number] PRN SL CHEST PAIN ; Start 06/17/16 at 19:30 Ondansetron HCl (Zofran Inj) 4 mg Q6H PRN IV NAUSEA AND/OR VOMITING; Start 06/17 at 19:30 Acetaminophen (Tylenol Tab) 650 mg Q6H PRN PO PAIN LEVEL 1-3 OR FEVER Last administered on 06/18/16 21:10; Admin Dose 650 MG; Start 06/17/16 at 19:30 Docusate Sodium (Colace) 100 mg Q12H PRN PO CONSTIPATION; Start 06/17/16 at 19: 30 Cholecalciferol (Vitamin D) 2,000 unit DAILY PO Last administered on 06/20/16 08:52; Admin Dose 2,000 UNIT; Start 06/18/16 at 09:00 Miscellaneous Information 1 ea NOTE XX ; Start 06/17/16 at 20:30 Glucose (Glutose) 15 gm Q15M PRN PO DECREASED GLUCOSE; Start 06/17/16 at 20:30 Glucose (Glutose) 22.5 gm Q15M PRN PO DECREASED GLUCOSE; Start 06/17/16 at 20:30 Dextrose (D50w Syringe) 25 ml Q15M PRN IV DECREASED GLUCOSE; Start 06/17/16 at 20:30 Dextrose (D50w Syringe) 50 ml Q15M PRN IV DECREASED GLUCOSE; Start 06/17/16 at 20:30 Glucagon (Glucagen) 1 mg Q15M PRN IM DECREASED GLUCOSE; Start 06/17/16 at 20:30 Glucose (Glutose) 15 gm Q15M PRN BUCCAL DECREASED GLUCOSE; Start 06/17/16 at 20: 30 Non-Formulary Medication (Non-Formulary Insulin) 35 unit QAM SC Last administered on 06/20/16 09:04; Admin Dose 35 UNIT; Start 06/19/16 at 09:00 Patient Own Medication 1.8 ea DAILY SC Last administered on 06/20/16 09:02; Admin Dose 1.8 EA; Start 06/19/16 at 09:00 Ciprofloxacin (Cipro) 500 mg DAILY@06 PO Last administered on 06/20/16 06:35; Admin Dose 500 MG; Start 06/19/16 at 06:00; Stop 06/24/16 at 05:59 Famotidine (Pepcid) 20 mg DAILY PO Last administered on 06/20/16 08:56; Admin Dose 20 MG; Start 06/19/16 at 09:00 Hydralazine HCl (Apresoline) 25 mg Q8 PO Last administered on 06/20/16 06:35; Admin Dose 25 MG; Start 06/19/16 at 22:00 Hydralazine HCl (Apresoline) 10 mg Q4H PRN IV SBP>170; Start 06/19/16 at 17:30 EMANI MONROY MD Jun 20, 2016 19:13
[2016-06-21] VITALS (14 sets, daily range): BP systolic 114–143; BP diastolic 49–65; PULSE 40–89; RESP 16–20
[2016-06-21] MEDS: CIPROFLOXACIN 500 MG TAB PO SCH (06:11)
[2016-06-21] MEDS: VICTOZA 18 MG/3 ML SC SCH (09:29)
[2016-06-21] MEDS: REPAGLINIDE 2 MG TAB PO SCH ×2 (10:36→17:27)
[2016-06-21] MEDS: NIFEdipine (XL) 60 MG TAB PO SCH ×2 (10:41→21:41)
[2016-06-21] MEDS: CHOLECALCIFEROL 2,000 UNIT CAP PO SCH (10:42)
[2016-06-21] MEDS: ISOSORBIDE MONONITRATE(SR)30 MG TAB PO SCH (10:42)
[2016-06-21] MEDS: FAMOTIDINE 20 MG TAB PO SCH (10:42)
[2016-06-21] MEDS: EZETIMIBE 10 MG TAB PO SCH (10:42)
[2016-06-21] MEDS: TRESIBA U SC SCH (10:43)
[2016-06-21] MEDS: [UNRECOGNIZED DRUG - OTHER] SC SCH (10:43)
[2016-06-21] MEDS: INSULIN ASPART [NOVOLOG] 3 ML PEN SC SCH ×4 (10:44→21:00)
[2016-06-21 10:47] LABS: ADD SCAN DIFF NO
[2016-06-21 10:50] LABS: BASOPHILS % 0.5 % (0.0-2.0); EOSINOPHILS # 0.3 10^3/ul (0.0-0.5); EOSINOPHILS % 3.2 % (0.0-7.0); HEMATOCRIT 29.7 % (37.0-47.0); HEMOGLOBIN 9.1 g/dl (12.0-16.0); LYMPHOCYTES # 1.2 10^3/ul (0.8-2.9); LYMPHOCYTES % 14.3 % (15.0-51.0); MEAN CORPUSCULAR HEMOGLOBIN 31.1 pg (29.0-33.0); MEAN CORPUSCULAR HGB CONC 30.6 g/dl (32.0-37.0); MEAN CORPUSCULAR VOLUME 101.4 fl (82.0-101.0); MEAN PLATELET VOLUME 10.6 fl (7.4-10.4); MONOCYTE # 0.7 10^3/ul (0.3-0.9); NEUTROPHILS % 73.6 % (39.0-77.0); PLATELET COUNT 183 10^3/UL (140-415); RED BLOOD COUNT 2.93 10^6/ul (4.20-5.40); RED CELL DISTRIBUTION WIDTH 17.5 % (11.5-14.5); WHITE BLOOD COUNT 8.1 10^3/ul (4.8-10.8)
--- NOTE | 2016-06-21 15:44 | CONS ---
Date/Time of Note Date/Time of Note DATE: 06/21/16 TIME: 15:41 Assessment/Plan Assessment/Plan Chief Complaint/Hosp Course IMPRESSION: 1. Bradycardia to the 30s, question if due to beta camron, likely in the setting of generalized conduction system defects given right bundle branch block and first-degree atrioventricular block.-Had recurretly with questionable episode of second degree HB, now again improved and remains in the 60-70's 2. Abnormal electrocardiogram with right bundle block, first-degree atrioventricular block. Assess for acute coronary syndrome.-negative troponin x 3 3. Hypertension-elevated. NLEF with DD by echo this admit 4. Dyslipidemia. 5. Anemias/p transfusion with PRBC's 6. Gastrointestinal bleed s/p endoscopy 06/19 7. End-stage renal disease on hemodialysis. 8. Diabetes mellitus. 9. History of cerebrovascular accident. 10.Weakness-overall improved Recc: -Tele -serial ecg's -Continue Procardia XL/imdur/hydralazine with reasonable BP control/somewhat labile -No thais agents and follow currently improved HR closely -Will continue to follow for possible need for PPM x additional 24 hours and if remains stable then ok for d/c from cardiac standpoint with further outpatient f /u and monitoring -Continue zetia -HD for volume Problems: Consultation Date/Type/Reason Admit Date/Time Jun 17, 2016 at 19:36 Initial Consult Date 06/18/16 Type of Consultation: cardiology Reason for Consultation Bradycardia Referring Provider: BLANK HOFFMAN MD Exam/Review of Systems Vital Signs Vitals Vital Signs Date Time Temp Pulse Resp B/P Pulse Ox O2 Delivery O2 Flow Rate FiO2 06/21/16 15:34 97.8 71 16 114/59 97 06/19/16 13:41 Room Air 06/19/16 13:34 8.0 Intake and Output 06/20/16 06/20/16 06/21/16 15:00 23:00 07:00 Intake Total 800 ml 550 ml Output Total 2400 ml Balance -1600 ml 550 ml Exam Review of Systems: CONSTITUTIONAL: No fevers, chills. PULMONARY: No sob CARDIOVASCULAR: No chest pain/palpitations GASTROINTESTINAL: No nausea/vomiting. GENITOURINARY: No hematuria/dysuria. MUSCULOSKELETAL: No myagias/arthalgias. PSYCHIATRIC: The patient denies depression. NEUROLOGIC: No weakness Constitutional: alert, oriented Psych: no complaints Head: normocephalic ENMT: mucosa pink and moist Neck: jvd (8 cm water), supple Respiratory: diminished breath sounds (at bases/B) Cardiovascular: regular rate and rhythm Gastrointestinal: non-tender, soft Musculoskeletal: muscle tone (normal) Extremities: edema (none) Neurological: lethargic Results Result Diagram: 06/21/16 1034 06/19/16 0630 Results 24 hrs Laboratory Tests Test 06/20/16 17:05 06/20/16 20:17 06/21/16 07:42 06/21/16 10:34 Bedside Glucose 199 225 H 81 White Blood Count 8.1 # Red Blood Count 2.93 L Hemoglobin 9.1 L Hematocrit 29.7 L Mean Corpuscular Volume 101.4 H Mean Corpuscular Hemoglobin 31.1 Mean Corpuscular Hemoglobin Concent 30.6 L Red Cell Distribution Width 17.5 H Platelet Count 183 Mean Platelet Volume 10.6 H Neutrophils % 73.6 Lymphocytes % 14.3 L Monocytes % 8.0 Eosinophils % 3.2 Basophils % 0.5 Nucleated Red Blood Cells % 0.0 Neutrophils # 6.0 Lymphocytes # 1.2 Monocytes # 0.7 Eosinophils # 0.3 Basophils # 0.0 Nucleated Red Blood Cells # 0.0 Test 06/21/16 11:57 Bedside Glucose 226 H Medications Medications Current Medications EZETIMIBE (Zetia) 10 mg DAILY PO Last administered on 06/21/16 10:42; Admin Dose 10 MG; Start 06/18/16 at 09:00 Isosorbide Mononitrate (Imdur) 30 mg DAILY PO Last administered on 06/21/16 10 :42; Admin Dose 30 MG; Start 06/18/16 at 09:00 Nifedipine (Procardia Xl) 60 mg BID PO Last administered on 06/21/16 10:41; Admin Dose 60 MG; Start 06/17/16 at 21:00 Nitroglycerin (Nitroglycerin (Sl Tab) 0.4 Mg) 1 tab [id number] PRN SL CHEST PAIN ; Start 06/17/16 at 19:30 Ondansetron HCl (Zofran Inj) 4 mg Q6H PRN IV NAUSEA AND/OR VOMITING; Start 06/17 at 19:30 Acetaminophen (Tylenol Tab) 650 mg Q6H PRN PO PAIN LEVEL 1-3 OR FEVER Last administered on 06/18/16 21:10; Admin Dose 650 MG; Start 06/17/16 at 19:30 Docusate Sodium (Colace) 100 mg Q12H PRN PO CONSTIPATION; Start 06/17/16 at 19: 30 Cholecalciferol (Vitamin D) 2,000 unit DAILY PO Last administered on 06/21/16 10:42; Admin Dose 2,000 UNIT; Start 06/18/16 at 09:00 Miscellaneous Information 1 ea NOTE XX ; Start 06/17/16 at 20:30 Glucose (Glutose) 15 gm Q15M PRN PO DECREASED GLUCOSE; Start 06/17/16 at 20:30 Glucose (Glutose) 22.5 gm Q15M PRN PO DECREASED GLUCOSE; Start 06/17/16 at 20:30 Dextrose (D50w Syringe) 25 ml Q15M PRN IV DECREASED GLUCOSE; Start 06/17/16 at 20:30 Dextrose (D50w Syringe) 50 ml Q15M PRN IV DECREASED GLUCOSE; Start 06/17/16 at 20:30 Glucagon (Glucagen) 1 mg Q15M PRN IM DECREASED GLUCOSE; Start 06/17/16 at 20:30 Glucose (Glutose) 15 gm Q15M PRN BUCCAL DECREASED GLUCOSE; Start 06/17/16 at 20: 30 Non-Formulary Medication (Non-Formulary Insulin) 35 unit QAM SC Last administered on 06/21/16 10:43; Admin Dose 35 UNIT; Start 06/19/16 at 09:00 Patient Own Medication 1.8 ea DAILY SC Last administered on 06/21/16 09:29; Admin Dose 1.8 EA; Start 06/19/16 at 09:00 Ciprofloxacin (Cipro) 500 mg DAILY@06 PO Last administered on 06/21/16 06:11; Admin Dose 500 MG; Start 06/19/16 at 06:00; Stop 06/24/16 at 05:59 Famotidine (Pepcid) 20 mg DAILY PO Last administered on 06/21/16 10:42; Admin Dose 20 MG; Start 06/19/16 at 09:00 Hydralazine HCl (Apresoline) 25 mg Q8 PO Last administered on 06/21/16 12:36; Admin Dose 25 MG; Start 06/19/16 at 22:00 Hydralazine HCl (Apresoline) 10 mg Q4H PRN IV SBP>170; Start 06/19/16 at 17:30 DORIS VARELA Jun 21, 2016 15:44
--- NOTE | 2016-06-21 21:13 | PN ---
Date/Time of Note Date/Time of Note DATE: 06/21/16 TIME: 21:07 Assessment/Plan VTE Prophylaxis VTE Prophylaxis Intervention: SCD's Lines/Catheters IV Catheter Type (from [facility]): [facility] Urinary Cath still in place: No Assessment/Plan Problems: (1) Urinary tract infection without hematuria Status: Acute Comment: Urine C&S (+) for e.coli sensitive to cipro. Will continue. Qualifiers: Urinary tract infection type: site unspecified Qualified Code: N39.0 - Urinary tract infection without hematuria, site unspecified (2) Bradycardia with 31-40 beats per minute Status: Resolved Comment: Cardiology still monitoring. If no recurrence O/N, may d/c tomorrow. (3) Gastric erosion with bleeding Status: Acute Comment: Likely cause of anemia. Start PPI and continue after d/c (4) Type 2 diabetes mellitus with diabetic chronic kidney disease Status: Chronic Comment: FS still out of range. Increase prandin from to 2 to 4 mg qac Qualifiers: Diabetes mellitus exterminator helper insulin use: with exterminator helper use Chronic kidney disease stage: on chronic dialysis Qualified Code: E11.22 - Type 2 diabetes mellitus with chronic kidney disease on chronic dialysis, with long-term current use of insulin (5) Hypertension Status: Chronic Comment: BP controlled. Cont. current regimen Qualifiers: Hypertension type: essential hypertension Qualified Code: I10 - Essential hypertension (6) End stage renal disease Status: Chronic Comment: Cont. HD per renal Subjective 24 Hr Interval Summary Constitutional: improved (better energy, maintained since transfusion and endoscopy), no complaints Respiratory: no complaints Cardiovascular: no complaints Gastrointestinal: no complaints Genitourinary: no complaints Musculoskeletal: no complaints Neurologic: no complaints Exam/Review of Systems Vital Signs Vitals VS - Last 72 Hours, by Label Date Time Temp Pulse Resp B/P Pulse Ox O2 Delivery O2 Flow Rate FiO2 06/21/16 19:40 97.6 76 18 125/60 98 06/21/16 17:05 70 06/21/16 17:04 89 06/21/16 15:34 97.8 71 16 114/59 97 06/21/16 12:24 69 06/21/16 11:40 98.0 73 16 141/65 98 06/21/16 08:23 67 06/21/16 07:43 97.8 78 18 132/49 97 06/21/16 04:00 69 06/21/16 03:46 97.6 73 18 141/65 99 06/21/16 00:00 72 06/20/16 23:46 97.9 71 20 128/59 98 06/20/16 20:15 72 06/20/16 16:48 68 16 06/20/16 16:45 68 06/20/16 16:15 78 06/20/16 16:00 68 06/20/16 15:45 79 06/20/16 15:20 97.9 70 19 119/52 95 06/20/16 15:15 76 06/20/16 14:45 72 06/20/16 14:15 77 17 06/20/16 14:15 70 06/20/16 12:00 69 06/20/16 11:29 97.9 55 19 110/50 96 06/20/16 08:00 73 06/20/16 07:25 97.6 73 19 134/57 95 06/20/16 04:04 97.0 57 20 145/67 98 06/20/16 04:01 72 06/20/16 00:13 75 06/20/16 00:03 97.1 71 18 144/62 96 06/19/16 20:31 98.5 51 16 164/52 98 06/19/16 20:20 80 06/19/16 16:33 45 146/51 06/19/16 16:03 42 06/19/16 15:56 98.0 43 20 170/47 94 06/19/16 13:41 46 165/52 97 Room Air 06/19/16 13:36 46 31 164/50 100 Room Air 06/19/16 13:34 46 31 160/52 100 Mask 8.0 06/19/16 13:26 101.0 47 18 164/51 100 Room Air 06/19/16 12:29 43 06/19/16 11:48 99.5 49 20 167/36 97 06/19/16 09:00 149/65 06/19/16 08:19 44 06/19/16 07:39 98.9 47 16 173/66 96 06/19/16 05:13 149/67 06/19/16 04:22 44 06/19/16 04:00 98.5 44 17 176/72 96 06/19/16 00:00 38 06/19/16 00:00 98.6 44 16 158/69 100 Vital Signs Date Time Temp Pulse Resp B/P Pulse Ox O2 Delivery O2 Flow Rate FiO2 06/21/16 19:40 97.6 76 18 125/60 98 06/19/16 13:41 Room Air 06/19/16 13:34 8.0 Intake and Output 06/20/16 06/20/16 06/21/16 15:00 23:00 07:00 Intake Total 800 ml 550 ml Output Total 2400 ml Balance -1600 ml 550 ml Exam Constitutional: alert, frail, obese, oriented Respiratory: clear to auscultation, normal air movement Cardiovascular: nl pulses, regular rate and rhythm, No edema, No murmurs/extra sounds, No rub Gastrointestinal: bowel sounds, nl liver, spleen, non-tender, soft, No mass, No rebound or guarding Musculoskeletal: nl extremities to inspection Extremities: normal pulses, No clubbing, No cyanosis, No edema Neurological: nl mental status, nl strength, No BARK SCALER II-XII intact (L facial weakness), No nl speech (dysarthric) Additional Comments Bedside Glucose - 72 Hours Test 06/19/16 07:49 06/19/16 13:58 06/19/16 16:52 06/19/16 21:26 Bedside Glucose 199mg/dL (70-220) 203mg/dL (70-220) 188mg/dL (70-220) 299mg/dL (70-220) H Test 06/20/16 08:03 06/20/16 11:38 06/20/16 17:05 06/20/16 20:17 Bedside Glucose 75mg/dL (70-220) 197mg/dL (70-220) 199mg/dL (70-220) 225mg/dL (70-220) H Test 06/21/16 07:42 06/21/16 11:57 06/21/16 17:02 Bedside Glucose 81mg/dL (70-220) 226mg/dL (70-220) H 141mg/dL (70-220) Results Result Diagram: 06/21/16 1034 06/19/16 0630 Results 24 hrs Laboratory Tests Test 06/21/16 07:42 06/21/16 10:34 06/21/16 11:57 06/21/16 17:02 Bedside Glucose 81 226 H 141 White Blood Count 8.1 # Red Blood Count 2.93 L Hemoglobin 9.1 L Hematocrit 29.7 L Mean Corpuscular Volume 101.4 H Mean Corpuscular Hemoglobin 31.1 Mean Corpuscular Hemoglobin Concent 30.6 L Red Cell Distribution Width 17.5 H Platelet Count 183 Mean Platelet Volume 10.6 H Neutrophils % 73.6 Lymphocytes % 14.3 L Monocytes % 8.0 Eosinophils % 3.2 Basophils % 0.5 Nucleated Red Blood Cells % 0.0 Neutrophils # 6.0 Lymphocytes # 1.2 Monocytes # 0.7 Eosinophils # 0.3 Basophils # 0.0 Nucleated Red Blood Cells # 0.0 Medications Medications Current Medications EZETIMIBE (Zetia) 10 mg DAILY PO Last administered on 06/21/16 10:42; Admin Dose 10 MG; Start 06/18/16 at 09:00 Isosorbide Mononitrate (Imdur) 30 mg DAILY PO Last administered on 06/21/16 10 :42; Admin Dose 30 MG; Start 06/18/16 at 09:00 Nifedipine (Procardia Xl) 60 mg BID PO Last administered on 06/21/16 10:41; Admin Dose 60 MG; Start 06/17/16 at 21:00 Nitroglycerin (Nitroglycerin (Sl Tab) 0.4 Mg) 1 tab [id number] PRN SL CHEST PAIN ; Start 06/17/16 at 19:30 Ondansetron HCl (Zofran Inj) 4 mg Q6H PRN IV NAUSEA AND/OR VOMITING; Start 06/17 at 19:30 Acetaminophen (Tylenol Tab) 650 mg Q6H PRN PO PAIN LEVEL 1-3 OR FEVER Last administered on 06/18/16 21:10; Admin Dose 650 MG; Start 06/17/16 at 19:30 Docusate Sodium (Colace) 100 mg Q12H PRN PO CONSTIPATION; Start 06/17/16 at 19: 30 Cholecalciferol (Vitamin D) 2,000 unit DAILY PO Last administered on 06/21/16 10:42; Admin Dose 2,000 UNIT; Start 06/18/16 at 09:00 Miscellaneous Information 1 ea NOTE XX ; Start 06/17/16 at 20:30 Glucose (Glutose) 15 gm Q15M PRN PO DECREASED GLUCOSE; Start 06/17/16 at 20:30 Glucose (Glutose) 22.5 gm Q15M PRN PO DECREASED GLUCOSE; Start 06/17/16 at 20:30 Dextrose (D50w Syringe) 25 ml Q15M PRN IV DECREASED GLUCOSE; Start 06/17/16 at 20:30 Dextrose (D50w Syringe) 50 ml Q15M PRN IV DECREASED GLUCOSE; Start 06/17/16 at 20:30 Glucagon (Glucagen) 1 mg Q15M PRN IM DECREASED GLUCOSE; Start 06/17/16 at 20:30 Glucose (Glutose) 15 gm Q15M PRN BUCCAL DECREASED GLUCOSE; Start 06/17/16 at 20: 30 Non-Formulary Medication (Non-Formulary Insulin) 35 unit QAM SC Last administered on 06/21/16 10:43; Admin Dose 35 UNIT; Start 06/19/16 at 09:00 Patient Own Medication 1.8 ea DAILY SC Last administered on 06/21/16 09:29; Admin Dose 1.8 EA; Start 06/19/16 at 09:00 Ciprofloxacin (Cipro) 500 mg DAILY@06 PO Last administered on 06/21/16 06:11; Admin Dose 500 MG; Start 06/19/16 at 06:00; Stop 06/24/16 at 05:59 Famotidine (Pepcid) 20 mg DAILY PO Last administered on 06/21/16 10:42; Admin Dose 20 MG; Start 06/19/16 at 09:00 Hydralazine HCl (Apresoline) 25 mg Q8 PO Last administered on 06/21/16 12:36; Admin Dose 25 MG; Start 06/19/16 at 22:00 Hydralazine HCl (Apresoline) 10 mg Q4H PRN IV SBP>170; Start 06/19/16 at 17:30 BLANK HOFFMAN MD Jun 21, 2016 21:13
--- NOTE | 2016-06-21 22:56 | CONS ---
DATE OF ADMISSION: 06/17/2016 DATE OF CONSULTATION: 06/21/2016 LOCATION: The patient is in room 5536. This unfortunate diabetic, hypertensive female with rt hemiplegia has been admitted with diagnosis of anemia. She has had extensive colonoscopic and upper endoscopy. The latter has shown gastritis. Colonoscopy has shown polyps which have been biopsied. The results are pending. Hemoglobin has been stable with the use of Epogen and hemodialysis been carried on every other day basis. The patient is cleared for discharge and further plans are per the primary care doctor. Her medications were reviewed and EPO dose will be titrated depending on the Hct at the dialysis ctr. Dictated By: EMANI MONROY MD SD/NTS Conf#: [id number] DID#: [id number] CC: BLANK HOFFMAN MD;*EndCC* MTDD
[2016-06-22] VITALS (17 sets, daily range): BP systolic 117–164; BP diastolic 55–76; PULSE 56–80; RESP 18–20
[2016-06-22] MEDS: ACETAMINOPHEN 325 MG TAB PO PRN (02:06)
[2016-06-22] MEDS: CIPROFLOXACIN 500 MG TAB PO SCH (06:21)
[2016-06-22 06:50] LABS: ADD SCAN DIFF NO
[2016-06-22 06:59] LABS: BASOPHIL # 0.1 10^3/ul (0.0-0.1); BASOPHILS % 0.5 % (0.0-2.0); EOSINOPHILS # 0.4 10^3/ul (0.0-0.5); EOSINOPHILS % 3.8 % (0.0-7.0); HEMATOCRIT 29.2 % (37.0-47.0); LYMPHOCYTES # 1.7 10^3/ul (0.8-2.9); LYMPHOCYTES % 17.3 % (15.0-51.0); MEAN CORPUSCULAR HEMOGLOBIN 31.6 pg (29.0-33.0); MEAN CORPUSCULAR HGB CONC 30.8 g/dl (32.0-37.0); MEAN CORPUSCULAR VOLUME 102.5 fl (82.0-101.0); MEAN PLATELET VOLUME 10.4 fl (7.4-10.4); MONOCYTE # 0.8 10^3/ul (0.3-0.9); NEUTROPHIL # 7.1 10^3/ul (1.6-7.5); NEUTROPHILS % 70.1 % (39.0-77.0); NUCLEATED RED BLOOD CELLS% 0.2 /100WBC (0.0-0.0); PLATELET COUNT 198 10^3/UL (140-415); RED BLOOD COUNT 2.85 10^6/ul (4.20-5.40); RED CELL DISTRIBUTION WIDTH 17.8 % (11.5-14.5); WHITE BLOOD COUNT 10.1 10^3/ul (4.8-10.8)
[2016-06-22 07:19] LABS: POTASSIUM 3.5 mmol/L (3.5-5.1)
[2016-06-22 07:22] LABS: CREATININE 5.52 mg/dl (0.44-1.00)
[2016-06-22 07:23] LABS: CALCIUM 8.8 mg/dl (8.4-10.2)
[2016-06-22] MEDS ORDERED: [UNRECOGNIZED DRUG - REMARK] XX SCH (08:00)
[2016-06-22] MEDS: INSULIN ASPART [NOVOLOG] 3 ML PEN SC SCH ×3 (08:00→17:28)
[2016-06-22] MEDS: VICTOZA 18 MG/3 ML SC SCH (08:08)
[2016-06-22] MEDS: REPAGLINIDE 2 MG TAB PO SCH ×3 (08:08→17:24)
[2016-06-22] MEDS: NIFEdipine (XL) 60 MG TAB PO SCH (09:00)
[2016-06-22] MEDS: ISOSORBIDE MONONITRATE(SR)30 MG TAB PO SCH (09:00)
[2016-06-22] MEDS: FAMOTIDINE 20 MG TAB PO SCH (09:28)
[2016-06-22] MEDS: CHOLECALCIFEROL 2,000 UNIT CAP PO SCH (09:28)
[2016-06-22] MEDS: EZETIMIBE 10 MG TAB PO SCH (09:29)
--- NOTE | 2016-06-22 10:27 | CONS ---
Date/Time of Note Date/Time of Note DATE: 06/22/16 TIME: 10:27 Assessment/Plan Assessment/Plan Additional Assessment/Plan 71 yo Female with 1) ESRD on HD 2) Acute anemia of blood loss on Chronic Disease, GIB 3) Mild Hyponatremia- Resolved 4) Mineral bone disease, CKD 5) Chronic HTN 6) Dm with Renal Complication, ESRD 7) UTI On HD, Stable Cont current treatment HD 3 xweek, UF as tolerated will order ARNOLDO after HD Consultation Date/Type/Reason Admit Date/Time Jun 17, 2016 at 19:36 Initial Consult Date 06/18/16 Type of Consultation: Nephrology Referring Provider: BLANK HOFFMAN MD 24 HR Interval Summary Free Text/Dictation on HD no new complaints Exam/Review of Systems Vital Signs Vitals Vital Signs Date Time Temp Pulse Resp B/P Pulse Ox O2 Delivery O2 Flow Rate FiO2 06/22/16 08:20 63 06/22/16 07:51 98.1 20 141/62 98 06/19/16 13:41 Room Air 06/19/16 13:34 8.0 Intake and Output 06/21/16 06/21/16 06/22/16 15:00 23:00 07:00 Intake Total 820 ml Balance 820 ml Exam seen and examined on HD Constitutional: No distress Eyes: EOMI Neck: No jvd Respiratory: No labored breathing Cardiovascular: edema Gastrointestinal: non-tender, soft Neurological: No lethargic Skin: No diaphoresis Results Result Diagram: 06/22/16 0625 06/22/16 0625 Results 24 hrs Laboratory Tests Test 06/21/16 10:34 06/21/16 11:57 06/21/16 17:02 06/21/16 21:30 White Blood Count 8.1 # Red Blood Count 2.93 L Hemoglobin 9.1 L Hematocrit 29.7 L Mean Corpuscular Volume 101.4 H Mean Corpuscular Hemoglobin 31.1 Mean Corpuscular Hemoglobin Concent 30.6 L Red Cell Distribution Width 17.5 H Platelet Count 183 Mean Platelet Volume 10.6 H Neutrophils % 73.6 Lymphocytes % 14.3 L Monocytes % 8.0 Eosinophils % 3.2 Basophils % 0.5 Nucleated Red Blood Cells % 0.0 Neutrophils # 6.0 Lymphocytes # 1.2 Monocytes # 0.7 Eosinophils # 0.3 Basophils # 0.0 Nucleated Red Blood Cells # 0.0 Bedside Glucose 226 H 141 121 Test 06/22/16 05:45 06/22/16 06:01 06/22/16 06:19 06/22/16 06:25 Bedside Glucose 48 *L 66 L 88 White Blood Count 10.1 # Red Blood Count 2.85 L Hemoglobin 9.0 L Hematocrit 29.2 L Mean Corpuscular Volume 102.5 H Mean Corpuscular Hemoglobin 31.6 Mean Corpuscular Hemoglobin Concent 30.8 L Red Cell Distribution Width 17.8 H Platelet Count 198 Mean Platelet Volume 10.4 Neutrophils % 70.1 Lymphocytes % 17.3 Monocytes % 8.0 Eosinophils % 3.8 Basophils % 0.5 Nucleated Red Blood Cells % 0.2 H Neutrophils # 7.1 Lymphocytes # 1.7 Monocytes # 0.8 Eosinophils # 0.4 Basophils # 0.1 Nucleated Red Blood Cells # 0.0 Sodium Level 138 Potassium Level 3.5 Chloride Level 99 Carbon Dioxide Level 25 Anion Gap 18 H Blood Urea Nitrogen 23 H Creatinine 5.52 H Glucose Level 120 Calcium Level 8.8 Test 06/22/16 06:37 06/22/16 07:59 Bedside Glucose 141 142 Medications Medications Current Medications EZETIMIBE (Zetia) 10 mg DAILY PO Last administered on 06/22/16 09:29; Admin Dose 10 MG; Start 06/18/16 at 09:00 Isosorbide Mononitrate (Imdur) 30 mg DAILY PO Last administered on 06/21/16 10 :42; Admin Dose 30 MG; Start 06/18/16 at 09:00 Nifedipine (Procardia Xl) 60 mg BID PO Last administered on 06/21/16 21:41; Admin Dose 60 MG; Start 06/17/16 at 21:00 Nitroglycerin (Nitroglycerin (Sl Tab) 0.4 Mg) 1 tab [id number] PRN SL CHEST PAIN ; Start 06/17/16 at 19:30 Ondansetron HCl (Zofran Inj) 4 mg Q6H PRN IV NAUSEA AND/OR VOMITING Last administered on 06/22/16 02:49; Admin Dose 4 MG; Start 06/17/16 at 19:30 Acetaminophen (Tylenol Tab) 650 mg Q6H PRN PO PAIN LEVEL 1-3 OR FEVER Last administered on 06/22/16 02:06; Admin Dose 650 MG; Start 06/17/16 at 19:30 Docusate Sodium (Colace) 100 mg Q12H PRN PO CONSTIPATION; Start 06/17/16 at 19: 30 Cholecalciferol (Vitamin D) 2,000 unit DAILY PO Last administered on 06/22/16 09:28; Admin Dose 2,000 UNIT; Start 06/18/16 at 09:00 Miscellaneous Information 1 ea NOTE XX ; Start 06/17/16 at 20:30 Glucose (Glutose) 15 gm Q15M PRN PO DECREASED GLUCOSE; Start 06/17/16 at 20:30 Glucose (Glutose) 22.5 gm Q15M PRN PO DECREASED GLUCOSE; Start 06/17/16 at 20:30 Dextrose (D50w Syringe) 25 ml Q15M PRN IV DECREASED GLUCOSE; Start 06/17/16 at 20:30 Dextrose (D50w Syringe) 50 ml Q15M PRN IV DECREASED GLUCOSE; Start 06/17/16 at 20:30 Glucagon (Glucagen) 1 mg Q15M PRN IM DECREASED GLUCOSE; Start 06/17/16 at 20:30 Glucose (Glutose) 15 gm Q15M PRN BUCCAL DECREASED GLUCOSE; Start 06/17/16 at 20: 30 Patient Own Medication 1.8 ea DAILY SC Last administered on 06/22/16 08:08; Admin Dose 1.8 EA; Start 06/19/16 at 09:00 Ciprofloxacin (Cipro) 500 mg DAILY@06 PO Last administered on 06/22/16 06:21; Admin Dose 500 MG; Start 06/19/16 at 06:00; Stop 06/24/16 at 05:59 Famotidine (Pepcid) 20 mg DAILY PO Last administered on 06/22/16 09:28; Admin Dose 20 MG; Start 06/19/16 at 09:00 Hydralazine HCl (Apresoline) 25 mg Q8 PO Last administered on 06/22/16 06:21; Admin Dose 25 MG; Start 06/19/16 at 22:00 Hydralazine HCl (Apresoline) 10 mg Q4H PRN IV SBP>170; Start 06/19/16 at 17:30 Non-Formulary Medication (Non-Formulary Insulin) 30 unit QAM SC ; Start at 09:00; Status UNV Miscellaneous Information (*Order Clarification Bulletin) TRESIBA: PLEASE BRING IN FROM [facility]... Q8H XX Last administered on 06/22/16t 09:32; Admin Dose 30 EA; Start 06/22/16 at 08:00 JULITA KEATING MD Jun 22, 2016 10:27
--- NOTE | 2016-06-22 11:46 | CONS ---
Date/Time of Note Date/Time of Note DATE: 06/22/16 TIME: 11:43 Assessment/Plan Assessment/Plan Additional Assessment/Plan 1. Bradycardia to the 30s, question if due to beta camron, likely in the setting of generalized conduction system defects given right bundle branch block and first-degree atrioventricular block.-Had recurretly with questionable episode of second degree HB, now again improved and remains in the 60-70's - NOW 48 HRS NO JUDE - PT HAS FAILED HD ACCESS ON LEFT SIDE - NOW HD ON RIGHT SIDE. I AM CONCERNED ABOUT INTRODUCING PACER WIRE ON RIGHT SIDE IT MIGHHT COMPRAMIZE HD ACESS - I THINK AT THIS POINT RISK BENEFIT RATIO IS TOWARD NOT PURSUING A PACER UNLESS PERSISTENT BRADYCARDIA WITH SYMPTOMS IS NOTED. WILL DISCUSS WITH DR. VARELA. 2. Abnormal electrocardiogram with right bundle block, first-degree atrioventricular block. Assess for acute coronary syndrome.-negative troponin x 3 3. Hypertension-elevated. NLEF with DD by echo this admit 4. Dyslipidemia. 5. Anemias/p transfusion with PRBC's 6. Gastrointestinal bleed s/p endoscopy 06/19 7. End-stage renal disease on hemodialysis- ON HD NOW. 8. Diabetes mellitus. 9. History of cerebrovascular accident. 10.Weakness-overall improved Consultation Date/Type/Reason Admit Date/Time Jun 17, 2016 at 19:36 Initial Consult Date 06/18/16 Type of Consultation: Nephrology Referring Provider: BLANK HOFFMAN MD 24 HR Interval Summary Free Text/Dictation NOW 48 HRS NO JUDE - PT HAS FAILED HD ACCESS ON LEFT SIDE - NOW HD ON RIGHT SIDE. I AM CONCERNED ABOUT INTRODUCING PACER WIRE ON RIGHT SIDE IT MIGHHT COMPRAMIZE HD ACESS - I THINK AT THIS POINT RISK BENEFIT RATIO IS TOWARD NOT PURSUING A PACER UNLESS PERSISTENT BRADYCARDIA WITH SYMPTOMS IS NOTED. WILL DISCUSS WITH DR. VARELA. ROS: No fever, no chills, no nausea, no vomiting, no diarrhea/constipation No recent weight changes No chest pain, no PND, no orthopnea No dizziness, blurred vision No thirst, no heat or cold intolerance Exam/Review of Systems Vital Signs Vitals Vital Signs Date Time Temp Pulse Resp B/P Pulse Ox O2 Delivery O2 Flow Rate FiO2 06/22/16 10:30 70 06/22/16 08:00 18 06/22/16 07:51 98.1 141/62 98 06/19/16 13:41 Room Air 06/19/16 13:34 8.0 Intake and Output 06/21/16 06/21/16 06/22/16 15:00 23:00 07:00 Intake Total 820 ml Balance 820 ml Exam General: WN/WD/NAD, AOx 3 HEENT: Unicetric/atraumatic/EOMI (follow commands) NECK: JVD elevated, no thyromegaly Lymph: no lymphadenopathy HEART: regular with no S3, II/ systolic murmur at apex LUNGS: Coarse sounds ABD: soft, NT, ND, +BS : Intact Neuro: non focal SKIN: chronic changes EXT: trace edema Results Result Diagram: 06/22/1662406/22/16 0625 Results 24 hrs Laboratory Tests Test 06/21/16 11:57 06/21/16 17:02 06/21/16 21:30 06/22/16 05:45 Bedside Glucose 226 H 141 121 48 *L Test 06/22/16 06:01 06/22/16 06:19 06/22/16 06:25 06/22/16 06:37 Bedside Glucose 66 L 88 141 White Blood Count 10.1 # Red Blood Count 2.85 L Hemoglobin 9.0 L Hematocrit 29.2 L Mean Corpuscular Volume 102.5 H Mean Corpuscular Hemoglobin 31.6 Mean Corpuscular Hemoglobin Concent 30.8 L Red Cell Distribution Width 17.8 H Platelet Count 198 Mean Platelet Volume 10.4 Neutrophils % 70.1 Lymphocytes % 17.3 Monocytes % 8.0 Eosinophils % 3.8 Basophils % 0.5 Nucleated Red Blood Cells % 0.2 H Neutrophils # 7.1 Lymphocytes # 1.7 Monocytes # 0.8 Eosinophils # 0.4 Basophils # 0.1 Nucleated Red Blood Cells # 0.0 Sodium Level 138 Potassium Level 3.5 Chloride Level 99 Carbon Dioxide Level 25 Anion Gap 18 H Blood Urea Nitrogen 23 H Creatinine 5.52 H Glucose Level 120 Calcium Level 8.8 Test 06/22/16 07:59 Bedside Glucose 142 Medications Medications Current Medications EZETIMIBE (Zetia) 10 mg DAILY PO Last administered on 06/22/16t 09:29; Admin Dose 10 MG; Start 06/18/16 at 09:00 Isosorbide Mononitrate (Imdur) 30 mg DAILY PO Last administered on 06/21/16 10 :42; Admin Dose 30 MG; Start 06/18/16 at 09:00 Nifedipine (Procardia Xl) 60 mg BID PO Last administered on 06/21/16 21:41; Admin Dose 60 MG; Start 06/17/16 at 21:00 Nitroglycerin (Nitroglycerin (Sl Tab) 0.4 Mg) 1 tab [id number] PRN SL CHEST PAIN ; Start 06/17/16 at 19:30 Ondansetron HCl (Zofran Inj) 4 mg Q6H PRN IV NAUSEA AND/OR VOMITING Last administered on 06/22/16 02:49; Admin Dose 4 MG; Start 06/17/16 at 19:30 Acetaminophen (Tylenol Tab) 650 mg Q6H PRN PO PAIN LEVEL 1-3 OR FEVER Last administered on 06/22/16 02:06; Admin Dose 650 MG; Start 06/17/16 at 19:30 Docusate Sodium (Colace) 100 mg Q12H PRN PO CONSTIPATION; Start 06/17/16 at 19: 30 Cholecalciferol (Vitamin D) 2,000 unit DAILY PO Last administered on 06/22/16 09:28; Admin Dose 2,000 UNIT; Start 06/18/16 at 09:00 Miscellaneous Information 1 ea NOTE XX ; Start 06/17/16 at 20:30 Glucose (Glutose) 15 gm Q15M PRN PO DECREASED GLUCOSE; Start 06/17/16 at 20:30 Glucose (Glutose) 22.5 gm Q15M PRN PO DECREASED GLUCOSE; Start 06/17/16 at 20:30 Dextrose (D50w Syringe) 25 ml Q15M PRN IV DECREASED GLUCOSE; Start 06/17/16 at 20:30 Dextrose (D50w Syringe) 50 ml Q15M PRN IV DECREASED GLUCOSE; Start 06/17/16 at 20:30 Glucagon (Glucagen) 1 mg Q15M PRN IM DECREASED GLUCOSE; Start 06/17/16 at 20:30 Glucose (Glutose) 15 gm Q15M PRN BUCCAL DECREASED GLUCOSE; Start 06/17/16 at 20: 30 Patient Own Medication 1.8 ea DAILY SC Last administered on 06/22/16 08:08; Admin Dose 1.8 EA; Start 06/19/16 at 09:00 Ciprofloxacin (Cipro) 500 mg DAILY@06 PO Last administered on 06/22/16 06:21; Admin Dose 500 MG; Start 06/19/16 at 06:00; Stop 06/24/16 at 05:59 Famotidine (Pepcid) 20 mg DAILY PO Last administered on 06/22/16 09:28; Admin Dose 20 MG; Start 06/19/16 at 09:00 Hydralazine HCl (Apresoline) 25 mg Q8 PO Last administered on 06/22/16 06:21; Admin Dose 25 MG; Start 06/19/16 at 22:00 Hydralazine HCl (Apresoline) 10 mg Q4H PRN IV SBP>170; Start 06/19/16 at 17:30 Non-Formulary Medication (Non-Formulary Insulin) 30 unit QAM SC ; Start at 09:00; Status UNV Miscellaneous Information (*Order Clarification Bulletin) TRESIBA: PLEASE BRING IN FROM [facility]... Q8H XX Last administered on 06/22/16 09:32; Admin Dose 30 EA; Start 06/22/16 at 08:00 JESSICA CROOK MD Jun 22, 2016 11:46
[2016-06-22] MEDS ORDERED: EPOETIN 4000 UNITS/1 ML INJ (ESRD) SC SCH (14:00)
--- NOTE | 2016-06-22 14:14 | PDOCDIS ---
Discharge Instructions CONDITION Patient Condition: Fair HOME CARE INSTRUCTIONS: Special Diet: 1800 ADA, renal ACTIVITY: Activity Restrictions: No Restrictions Bathing Restrictions: Shower FOLLOW UP/APPOINTMENTS Appointments f/u w/ scheduled dialysis appointments/Dr. Bates, f/u w/ Dr. Moncada 2-4 weeks, f/u w/ Dr. Reese 2 weeks, f/u w/ Dr. Soto 2 weeks BLANK MONCADA MD Jun 22, 2016 14:14
[2016-06-22] MEDS ORDERED: HYDR-3671 PO (14:19)
[2016-06-22] MEDS ORDERED: CIPR500T4 PO (14:19)
[2016-06-22] MEDS ORDERED: REPA2TAB8 PO (14:19)
[2016-06-22] MEDS ORDERED: PANT40TA4 PO (14:19)
--- NOTE | 2016-06-22 15:53 | DS ---
Date/Time of Note Date/Time of Note DATE: 06/22/16 TIME: 15:46 Discharge Summary Admission/Discharge Info Admit Date/Time Jun 17, 2016 at 19:36 Discharge Date/Time 06/22/16 @ 1500 Final Diagnosis Upper GI bleed due to gastric erosions and periodic bradycardia Patient Condition: Fair Consults Reese: cardiology, Charles: GI, Otis: nephrology Procedures EGD: gastric erosions, Paucity of folds noted in the third part of the duodenum. Biopsies were done, Colonoscopy: 2 small polyps which were removed and external and internal hemorrhoids Hx of Present Illness 71 y/o P F w/ h/o T2DM, w/ DN/DR/DN, ESRD, HTN, hyperlipidemia, CAD, CVA w/ residual deficit, osteoporosis, in [facility] until 2 days ago when she developed new onset of generalized weakness and malaise. This continued to progress until this am when she felt so weak that she almost could not get out of bed. However , knew that she had to go to have HD so she did. However, after HD called her daughter to come pick her up to go to hospital b/c too weak. Admits to black tarry stool. In ER, had episodes on monitor of HR dropping to 40's and 30's intermittently. One captured on 12-lead was as slow as 40 bpm. Pt. also found to have > 200 WBC in urine. Hospital Course Beta camron was d/c'ed on admission. Pt. started on empiric antibiotic therapy w/ cipro. Urine culture did grow e.coli sensitive to cipro so this was continued. Cardiology, nephrology, and GI were consulted. Nephrology performed dialysis and gave 1 unit PRBC transfusion. Cardiology monitored bradycardic episodes which seemed to taper off or occur only at end of dialysis. EGD showed likely source of blood loss was due to erosive gastritis. Pt. feeling stronger. Glucose levels optimized. BP controlled w/o beta- blockade. Pt. 48 hours w/o bradycardia. Cleared for discharge from all consults. F/u as outpt. Home Meds Active Scripts Pantoprazole* (Pantoprazole*) 40 Mg Tablet., 40 MG PO DAILY for 30 Days, #30 TAB 5 Refills Prov:BLANK MONCADA MD 06/22/16 Hydralazine Hcl* (Hydralazine Hcl*) 25 Mg Tab, 25 MG PO Q8 for 30 Days, #90 TAB 5 Refills Prov:BLANK MONCADA MD 06/22/16 Ciprofloxacin Hcl* (Ciprofloxacin Hcl*) 500 Mg Tablet, 500 MG PO DAILY@06 for 2 Days, #2 TAB 0 Refills Prov:BLANK MONCADA MD 06/22/16 Repaglinide* (Repaglinide*) 2 Mg Tablet, 4 MG PO AC MEALS for 30 Days, #180 TAB 5 Refills Prov:BLANK MONCADA MD 06/22/16 Reported Medications Liraglutide (Victoza 3-Jared) 0.6 Mg/0.1 Ml Pen.injctr, 1.8 MG SQ QAM, SYR 06/17/16 Insulin Degludec (Tresiba Flextouch U-100) 100 Unit/1 Ml Insuln.pen, 35 UNIT SQ QAM 06/17/16 [Life Extension] No Conflict Check, 1 TAB PO DAILY for VITAMINS 06/17/16 Cholecalciferol (Vitamin D3) (VITAMIN D-3) 2,000 Unit Capsule, 1300 UNIT PO DAILY, CAP 06/17/16 Aspirin* (Ecotrin*) 325 Mg Tablet.dr, 325 MG PO DAILY, TAB 08/01/15 Ascorbate Calcium (Vitamin C) 500 Mg Tablet, 500 MG PO DAILY, TAB 08/01/15 Isosorbide Mononitrate* (Isosorbide Mononitrate*) 30 Mg Tab.er.24h, 30 MG PO DAILY, TAB 08/01/15 Ezetimibe* (Zetia*) 10 Mg Tablet, 10 MG PO DAILY, TAB 08/01/15 Nifedipine* (Nifedipine ER*) 60 Mg Tablet.sa, 60 MG PO BID, TAB.SA 08/01/15 Nitroglycerin* (Nitrostat*) 0.4 Mg Tab.subl, 0.4 MG SL Q5MIN Y for CHEST PAIN, BOTTLE 07/16/14 Furosemide* (Lasix*) 40 Mg Tablet, 40 MG PO DAILY, TAB 07/16/14 Discontinued Reported Medications Metoprolol Tartrate* (Lopressor*) 100 Mg Tablet, 100 MG PO BID, TAB 07/16/14 [Humalog Insulin] No Conflict Check 08/01/15 Cholecalciferol (Vitamin D3) 1,000 Unit Capsule, 1000 UNIT PO DAILY, CAP 08/01/15 Linagliptin (TRADJENTA) 5 Mg Tablet, 5 MG PO DAILY, TAB 08/01/15 Insulin Glargine* (Lantus*) 100 Unit/Ml Soln, 15 UNIT SC QHS, #1 VIAL 08/01/15 Nifedipine* (Nifedipine ER*) 30 Mg Tablet.sa, 30 MG PO Q PM, TAB.SA 08/01/15 Atorvastatin Calcium* (Atorvastatin Calcium*) 20 Mg Tablet, 20 MG PO HS, TAB 07/16/14 Sitagliptin* (Januvia*) 25 Mg Tablet, 25 MG PO DAILY, TAB 07/16/14 Insulin Glargine* (Lantus*) 100 Unit/Ml Soln, 19 UNIT SC Q AM, EA 07/16/14 Follow-up Plan f/u w/ scheduled dialysis appointments/Dr. Bates, f/u w/ Dr. Moncada 2-4 weeks, f/u w/ Dr. Reese 2 weeks, f/u w/ Dr. Soto 2 weeks Pending Labs Laboratory Tests Test 06/21/16 17:02 06/21/16 21:30 06/22/16 05:45 06/22/16 06:01 Bedside Glucose 141mg/dL (70-220) 121mg/dL (70-220) 48mg/dL (70-220) 66mg/dL (70-220) Test 06/22/16 06:19 06/22/16 06:25 06/22/16 06:37 06/22/16 07:59 Bedside Glucose 88mg/dL (70-220) 141mg/dL (70-220) 142mg/dL (70-220) White Blood Count 10.110^3/ul (4.8-10.8) Red Blood Count 2.8510^6/ul (4.20-5.40) Hemoglobin 9.0g/dl (12.0-16.0) Hematocrit 29.2% (37.0-47.0) Mean Corpuscular Volume 102.5fl (82.0-101.0) Mean Corpuscular Hemoglobin 31.6pg (29.0-33.0) Mean Corpuscular Hemoglobin Concent 30.8g/dl (32.0-37.0) Red Cell Distribution Width 17.8% (11.5-14.5) Platelet Count 88095^3/UL (140-415) Mean Platelet Volume 10.4fl (7.4-10.4) Neutrophils % 70.1% (39.0-77.0) Lymphocytes % 17.3% (15.0-51.0) Monocytes % 8.0% (0.0-11.0) Eosinophils % 3.8% (0.0-7.0) Basophils % 0.5% (0.0-2.0) Nucleated Red Blood Cells % 0.2/100WBC (0.0-0.0) Neutrophils # 7.110^3/ul (1.6-7.5) Lymphocytes # 1.710^3/ul (0.8-2.9) Monocytes # 0.810^3/ul (0.3-0.9) Eosinophils # 0.410^3/ul (0.0-0.5) Basophils # 0.110^3/ul (0.0-0.1) Nucleated Red Blood Cells # 0.010^3/ul (0.0-0.0) Sodium Level 138mmol/L (135-144) Potassium Level 3.5mmol/L (3.5-5.1) Chloride Level 99mmol/L (97-110) Carbon Dioxide Level 25mmol/L (21-31) Anion Gap 18 (8-16) Blood Urea Nitrogen 23mg/dl (7-20) Creatinine 5.52mg/dl (0.44-1.00) Glucose Level 120mg/dl (70-220) Calcium Level 8.8mg/dl (8.4-10.2) Test 06/22/16 11:58 Bedside Glucose 164mg/dL (70-220) BLANK MONCADA MD Jun 22, 2016 15:53
[2016-06-22] MEDS ORDERED: FUROSEMIDE 20 MG INJ IV SCH (18:00)
[2016-06-23] MEDS ORDERED: [UNRECOGNIZED DRUG - REMARK] SC SCH (09:00)
[2016-06-23] MEDS ORDERED: POTASSIUM CHLORIDE (SR) 20 MEQ TAB PO SCH (09:00)
== END 2016-06-22 18:25 | disposition home or self-care (01) | DRG 377 ==
LOC: E/R 14:15 → MS4 19:36
PROVIDERS: ADMIT Internal Medicine; ATTEND Internal Medicine
PROC: 30233N1 Transfusion of Nonautologous Red Blood Cells into Peripheral Vein, Percutaneous Approach (ICD-10-PCS; 2016-06-18)
PROC: 5A1D60Z (ICD-10-PCS; 2016-06-18)
PROC: 0DBM8ZZ Excision of Descending Colon, Via Natural or Artificial Opening Endoscopic (ICD-10-PCS; 2016-06-19)
PROC: 0DBE8ZX Excision of Large Intestine, Via Natural or Artificial Opening Endoscopic, Diagnostic (ICD-10-PCS; 2016-06-19)
PROC: 0DB98ZX Excision of Duodenum, Via Natural or Artificial Opening Endoscopic, Diagnostic (ICD-10-PCS; principal; 2016-06-19 11:30)
PROC: 0DBL8ZZ Excision of Transverse Colon, Via Natural or Artificial Opening Endoscopic (ICD-10-PCS; 2016-06-19 11:30)
DX: K25.0 Acute gastric ulcer with hemorrhage (principal); N18.6 End stage renal disease; E11.22 Type 2 diabetes mellitus with diabetic chronic kidney disease; I12.0 Hypertensive chronic kidney disease with stage 5 chronic kidney disease or end stage renal disease; D62 Acute posthemorrhagic anemia; N39.0 Urinary tract infection, site not specified; E87.1 Hypo-osmolality and hyponatremia; I69.354 Hemiplegia and hemiparesis following cerebral infarction affecting left non-dominant side; E78.5 Hyperlipidemia, unspecified; E11.65 Type 2 diabetes mellitus with hyperglycemia; E83.9 Disorder of mineral metabolism, unspecified; I25.10 Atherosclerotic heart disease of native coronary artery without angina pectoris; B96.20 Unspecified Escherichia coli [E. coli] as the cause of diseases classified elsewhere; K31.89 Other diseases of stomach and duodenum; K64.8 Other hemorrhoids; K64.4 Residual hemorrhoidal skin tags; D12.3 Benign neoplasm of transverse colon; D12.4 Benign neoplasm of descending colon; R19.5 Other fecal abnormalities; R00.1 Bradycardia, unspecified; R94.31 Abnormal electrocardiogram [ECG] [EKG]; Z95.1 Presence of aortocoronary bypass graft; Z99.2 Dependence on renal dialysis; Z79.4 Long term (current) use of insulin
CPT/HCPCS: 36430; 71010; 80048; 80053; 80061; 81001; 81003; 82270; 82550; 82553; 82962; 83036; 83735; 84132; 84443; 84484; 85025; 85610; 85730; 86850; 86900; 86901; 86920; 87086; 88305; 88312; 90935; 93005; 93306; 96372; 96374; C9113; J0886; J1815; J2405; J2765; J7040; P9016

== ENCOUNTER 2016-12-09 23:38 | Emergency (ER) | payer MEDICARE, OTHER ==
[~2016-12-09] VITALS: Ht 160 cm; Wt 66.0 kg
[~2016-12-09 23:38] MED LIST changes: -ATOR20TA38 PO; -CHOL100016 PO; +CHOL200073 PO; +CIPR500T4 PO; -HUMALOG INSULIN; +HYDR-3671 PO; +INSU100I31 SQ; -LANT3I SC; -LINA5TAB PO; +LIRA0.6P2 SQ; -METO-407 PO; -NIFE30TA60 PO; +PANT40TA4 PO; -SITA25TA3 PO; +[UNRECOGNIZED DRUG - OTHER] PO
[2016-12-09 23:43] VITALS: Ht 160 cm; Wt 66.0 kg
[2016-12-10 00:26] LABS: URINE BLOOD (Dip) POC Negative (NEGATIVE)
[2016-12-10 00:55] LABS: BASOPHIL # 0.1 10^3/ul (0.0-0.1); BASOPHILS % 0.7 % (0.0-2.0); EOSINOPHILS # 0.2 10^3/ul (0.0-0.5); EOSINOPHILS % 2.4 % (0.0-7.0); HEMATOCRIT 35.1 % (37.0-47.0); HEMOGLOBIN 11.4 g/dl (12.0-16.0); LYMPHOCYTES # 1.2 10^3/ul (0.8-2.9); LYMPHOCYTES % 14.8 % (15.0-51.0); MEAN CORPUSCULAR HEMOGLOBIN 32.8 pg (29.0-33.0); MEAN CORPUSCULAR HGB CONC 32.5 g/dl (32.0-37.0); MEAN CORPUSCULAR VOLUME 100.9 fl (82.0-101.0); MEAN PLATELET VOLUME 10.3 fl (7.4-10.4); MONOCYTE # 0.8 10^3/ul (0.3-0.9); MONOCYTES % 9.7 % (0.0-11.0); NEUTROPHIL # 5.8 10^3/ul (1.6-7.5); NEUTROPHILS % 72.2 % (39.0-77.0); PLATELET COUNT 208 10^3/UL (140-415); RED BLOOD COUNT 3.48 10^6/ul (4.20-5.40); RED CELL DISTRIBUTION WIDTH 13.7 % (11.5-14.5)
--- NOTE | 2016-12-10 00:57 | RADRPT ---
PROCEDURE: XR Chest. CLINICAL INDICATION: Chest pain. TECHNIQUE: Single frontal view. COMPARISON: 06/17/2016. FINDINGS: Surgical carlos are present in the right upper and midlung zones. There are sternal wires and media stinal clips. The heart is enlarged. Calcification is present in the aorta consistent with atheroscl erosis. There is mild atelectasis at the lung bases. The lungs are otherwise clear. There are small bilateral pleural effusions. There is no pneumothorax. IMPRESSION: 1. Prior right lung surgery. 2. Cardiomegaly. 3. Atherosclerosis. 4. New atelectasis at the lung bases and small bilateral pleural effusions. RPTAT: QQ .Janak Caldwell MD, MD Date Time Electronically viewed and signed by .Janak Caldwell MD, on 12/10/2016 00:56 .R/
[2016-12-10 01:09] LABS: CALCIUM 7.9 mg/dl (8.4-10.2); CREATININE 3.3 mg/dl (0.44-1.00); POTASSIUM 4.3 mmol/L (3.5-5.1)
[2016-12-10 01:16] LABS: ADD UMIC YES; UR ASCORBIC ACID 40 mg/dL (NEGATIVE); UR BILIRUBIN (Dip) NEGATIVE (NEGATIVE); UR BLOOD (Dip) NEGATIVE (NEGATIVE); UR CLARITY CLEAR (CLEAR); UR COLOR AMBER (YELLOW); UR GLUCOSE (Dip) 1+ mg/dL (NEGATIVE); UR KETONES (Dip) NEGATIVE (NEGATIVE); UR LEUKOCYTE ESTERASE (Dip) NEGATIVE Leu/ul (NEGATIVE); UR NITRITE (Dip) NEGATIVE (NEGATIVE); UR RBC 1 /HPF (0-5); UR SPECIFIC GRAVITY (Dip) 1.016 (1.003-1.030); UR TOTAL PROTEIN (Dip) 3+ mg/dl (NEGATIVE); UR UROBILINOGEN (Dip) 2+ mg/dL (NEGATIVE)
[2016-12-10 01:21] LABS: TROPONIN-I 0.051 ng/ml (0.00-0.12)
--- NOTE | 2016-12-10 01:59 | ERD ---
ER Documentation Chief Complaint Date/Time DATE: 12/10/16 TIME: 01:56 Chief Complaint dizziness x 3 days, dialyzed today, scanty urination HPI This is a 71-year-old female with a history of hypertension, end-stage renal disease who is on dialysis on Tuesday, , Tuesday who completed her dialysis yesterday December 09 who presents to the emergency room today for evaluation of difficulty urinating. The patient states that she feels like she has to urinate and is not going to the bathroom. She states that she normally makes urine and over the past day she is felt like she has to urinate however has not been able to produce much urine. The patient denies any fevers or abdominal pain associated with this. She came to the emergency room for further evaluation. ROS All systems reviewed and are negative except as per history of present illness. Medications Home Meds Active Scripts Pantoprazole* (Pantoprazole*) 40 Mg Tablet., 40 MG PO DAILY for 30 Days, #30 TAB 5 Refills Prov:BLANK HOFFMAN MD 06/22/16 Hydralazine Hcl* (Hydralazine Hcl*) 25 Mg Tab, 25 MG PO Q8 for 30 Days, #90 TAB 5 Refills Prov:BLANK HOFFMAN MD 06/22/16 Ciprofloxacin Hcl* (Ciprofloxacin Hcl*) 500 Mg Tablet, 500 MG PO DAILY@06 for 2 Days, #2 TAB 0 Refills Prov:BLANK HOFFMAN MD 06/22/16 Repaglinide* (Repaglinide*) 2 Mg Tablet, 4 MG PO AC MEALS for 30 Days, #180 TAB 5 Refills Prov:BLANK HOFFMAN MD 06/22/16 Reported Medications Liraglutide (Victoza 3-Jared) 0.6 Mg/0.1 Ml Pen.injctr, 1.8 MG SQ QAM, SYR 06/17/16 Insulin Degludec (Tresiba Flextouch U-100) 100 Unit/1 Ml Insuln.pen, 35 UNIT SQ QAM 06/17/16 [Life Extension] No Conflict Check, 1 TAB PO DAILY for VITAMINS 06/17/16 Cholecalciferol (Vitamin D3) (VITAMIN D-3) 2,000 Unit Capsule, 1300 UNIT PO DAILY, CAP 06/17/16 Aspirin* (Ecotrin*) 325 Mg Tablet.dr, 325 MG PO DAILY, TAB 08/01/15 Ascorbate Calcium (Vitamin C) 500 Mg Tablet, 500 MG PO DAILY, TAB 08/01/15 Isosorbide Mononitrate* (Isosorbide Mononitrate*) 30 Mg Tab.er.24h, 30 MG PO DAILY, TAB 08/01/15 Ezetimibe* (Zetia*) 10 Mg Tablet, 10 MG PO DAILY, TAB 08/01/15 Nifedipine* (Nifedipine ER*) 60 Mg Tablet.sa, 60 MG PO BID, TAB.SA 08/01/15 Nitroglycerin* (Nitrostat*) 0.4 Mg Tab.subl, 0.4 MG SL Q5MIN Y for CHEST PAIN, BOTTLE 07/16/14 Furosemide* (Lasix*) 40 Mg Tablet, 40 MG PO DAILY, TAB 07/16/14 Allergies Allergies: Coded Allergies: clopidogrel bisulfate (Verified Allergy, Unknown, rash, 06/17/16) PMhx/Soc History of Surgery: Yes (CABG, 4 CS,Lobectomy, Bilat eye sirgery) Anesthesia Reaction: No Hx Neurological Disorder: Yes (CVA) Hx Respiratory Disorders: No Hx Cardiac Disorders: Yes (sp CABG) Hx Psychiatric Problems: No Hx Miscellaneous Medical Probl: No Hx Alcohol Use: No Hx Substance Use: No Hx Tobacco Use: No Smoking Status: Never smoker Physical Exam Vitals Vital Signs Date Time Temp Pulse Resp B/P Pulse Ox O2 Delivery O2 Flow Rate FiO2 12/09/16 23:43 98.5 84 20 155/67 97 Physical Exam INITIAL VITAL SIGNS: Reviewed by me GENERAL: The patient is well developed and appropriate for usual state of health in no apparent distress HEENT: Pupils equal, round, and reactive to light. EOMI. There is no scleral icterus. NECK: C-spine is soft and supple, there is no meningismus. There is no cervical lymphadenopathy. LUNGS: Clear to auscultation bilaterally. There are no rales, wheezes or rhonchi. HEART: Regular rate and rhythm, no murmurs, clicks, rubs or gallops. ABDOMEN: Soft, non-tender, non-distended. There are bowel sounds in all four quadrants. No rebound or guarding. EXTREMITIES: Right upper extremity fistula, plus pitting edema in the bilateral lower extremities NEUROLOGICAL: The patient moves all four extremities with 5/5 strength. Cranial nerves II - XII are intact. Normal gait. Alert and oriented SKIN: There is no apparent rash or petechiae. HEME/LYMPHATIC: There is no evidence of excessive bruising or lymphedema. PSYCHIATRIC: The patient does not appear anxious or depressed. Result Diagram: 12/10/16 0015 12/10/16 0015 Results 24 hrs Laboratory Tests Test 12/10/16 00:15 12/10/16 00:22 12/10/16 00:33 White Blood Count 8.010^3/ul Red Blood Count 3.4810^6/ul Hemoglobin 11.4g/dl Hematocrit 35.1% Mean Corpuscular Volume 100.9fl Mean Corpuscular Hemoglobin 32.8pg Mean Corpuscular Hemoglobin Concent 32.5g/dl Red Cell Distribution Width 13.7% Platelet Count 44089^3/UL Mean Platelet Volume 10.3fl Neutrophils % 72.2% Lymphocytes % 14.8% Monocytes % 9.7% Eosinophils % 2.4% Basophils % 0.7% Nucleated Red Blood Cells % 0.0/100WBC Neutrophils # 5.810^3/ul Lymphocytes # 1.210^3/ul Monocytes # 0.810^3/ul Eosinophils # 0.210^3/ul Basophils # 0.110^3/ul Nucleated Red Blood Cells # 0.010^3/ul Sodium Level 138mmol/L Potassium Level 4.3mmol/L Chloride Level 95mmol/L Carbon Dioxide Level 34mmol/L Anion Gap 13 Blood Urea Nitrogen 22mg/dl Creatinine 3.30mg/dl Glucose Level 101mg/dl Calcium Level 7.9mg/dl Troponin I 0.051ng/ml B-Type Natriuretic Peptide [id number]/ML Urine Color LANDY Urine Clarity CLEAR Urine pH 7.0 Urine Specific [place] 1.016 Urine Ketones NEGATIVEmg/dL Urine Nitrite NEGATIVEmg/dL Urine Bilirubin NEGATIVEmg/dL Urine Urobilinogen 2+mg/dL Urine Leukocyte Esterase NEGATIVELeu/ul Urine Microscopic RBC 1/HPF Urine Microscopic WBC 2/HPF Urine Hemoglobin NEGATIVEmg/dL Urine Glucose 1+mg/dL Urine Total Protein 3+mg/dl Bedside Urine pH (LAB) 8.5 Bedside Urine Protein (LAB) 3+ Bedside Urine Glucose (UA) Negative Bedside Urine Ketones (LAB) Negative Bedside Urine Blood Negative Bedside Urine Nitrite (LAB) Negative Bedside Urine Leukocyte Esterase (L Negative Procedures/MDM EKG: Rate/Rhythm: [Normal Sinus Rhythm] QRS, ST, T-waves: [No changes consistent w/ acute ischemia] Impression: [No evidence of ischemia or arrhythmia]\ Chest X-ray 1V Interpreted by me: Soft Tissue: No acute abnormalities Bones: No acute abnormalities Mediastinum/Cardiac Silhouette/Lungs: Bilateral pleural effusions This 71-year-old female presents to the emergency room for evaluation of difficulty urinating. This patient is a gastric cath and had some lab work drawn in the emergency room given her 1+ peripheral edema. Lab work does not demonstrate any abnormalities in her potassium. Her EKG is nonischemic and chest x-ray just shows bilateral pleural effusions. This patient is not hypoxic and in no respiratory distress at this time. This patient did have a Hoff catheter placed and was advised to follow-up in 48 hours for for catheter removal to determine whether or not this patient is having a problem with urinary retention versus making urine given the fact that she has end-stage renal disease. Both the patient and the patient's daughter who takes care of this patient are in agreement with our plan of care and feel comfortable with discharge. I advised him he can return to the emergency room at any point for reevaluation if they were uncomfortable at home or if the patient were to decompensate in any way. They verbalized understanding and will be discharged at this time. Departure Diagnosis: Primary Impression: End stage renal disease Additional Impression: Urinary retention Condition: Stable MEDHAT MARTIN DO Dec 10, 2016 01:59
== END 2016-12-10 04:01 | disposition home or self-care (01) ==
LOC: E/R 23:38
DX: I12.0 Hypertensive chronic kidney disease with stage 5 chronic kidney disease or end stage renal disease (principal); N18.6 End stage renal disease; E11.22 Type 2 diabetes mellitus with diabetic chronic kidney disease; R06.02 Shortness of breath; Z79.4 Long term (current) use of insulin; Z79.82 Long term (current) use of aspirin; Z99.2 Dependence on renal dialysis; Z98.61 Coronary angioplasty status
CPT/HCPCS: 36415; 71010; 80048; 81001; 81003; 83880; 84484; 85025; 93005

== ENCOUNTER 2016-12-11 14:50 | Emergency (ER) | payer MEDICARE, OTHER ==
[~2016-12-11] VITALS: Ht 152.4 cm; Wt 64.0 kg
[2016-12-11 14:58] VITALS: Ht 152.4 cm; Wt 64.0 kg
--- NOTE | 2016-12-11 19:08 | ERD ---
ER Documentation Chief Complaint Date/Time DATE: 12/11/16 TIME: 19:04 Chief Complaint Pt needs vargas catheter removed after beeing in for 48 hours. HPI 71-year-old female presented to the ED for Vargas catheter removal. She has history of end-stage renal disease, is on dialysis. She was seen here 2 days ago complaining of low urine output. A Vargas catheter was placed for her at that time. She had very small amount of urine drained Via Vargas at that time. She was told to keep track of her urine output at home, and comes here today for Vargas removal. Patient's daughter reports that patient had total of 800 mL of urine output in the last 36 hours since she was discharged previously. Patient is on dialysis Tuesday, , and Saturdays. She has just received dialysis today, with 1.2-1.5 L of fluid removal. She reports discomfort from the Vargas site. Denies fever or chills. ROS All systems reviewed and are negative except as per history of present illness. Medications Home Meds Active Scripts Pantoprazole* (Pantoprazole*) 40 Mg Tablet.dr, 40 MG PO DAILY for 30 Days, #30 TAB 5 Refills Prov:BLANK HOFFMAN MD 06/22/16 Hydralazine Hcl* (Hydralazine Hcl*) 25 Mg Tab, 25 MG PO Q8 for 30 Days, #90 TAB 5 Refills Prov:BLANK HOFFMAN MD 06/22/16 Ciprofloxacin Hcl* (Ciprofloxacin Hcl*) 500 Mg Tablet, 500 MG PO DAILY@06 for 2 Days, #2 TAB 0 Refills Prov:BLANK HOFFMAN MD 06/22/16 Repaglinide* (Repaglinide*) 2 Mg Tablet, 4 MG PO AC MEALS for 30 Days, #180 TAB 5 Refills Prov:BLANK HOFFMAN MD 06/22/16 Reported Medications Liraglutide (Victoza 3-Jared) 0.6 Mg/0.1 Ml Pen.injctr, 1.8 MG SQ QAM, SYR 06/17/16 Insulin Degludec (Tresiba Flextouch U-100) 100 Unit/1 Ml Insuln.pen, 35 UNIT SQ QAM 06/17/16 [Life Extension] No Conflict Check, 1 TAB PO DAILY for VITAMINS 06/17/16 Cholecalciferol (Vitamin D3) (VITAMIN D-3) 2,000 Unit Capsule, 1300 UNIT PO DAILY, CAP 06/17/16 Aspirin* (Ecotrin*) 325 Mg Tablet.dr, 325 MG PO DAILY, TAB 08/01/15 Ascorbate Calcium (Vitamin C) 500 Mg Tablet, 500 MG PO DAILY, TAB 08/01/15 Isosorbide Mononitrate* (Isosorbide Mononitrate*) 30 Mg Tab.er.24h, 30 MG PO DAILY, TAB 08/01/15 Ezetimibe* (Zetia*) 10 Mg Tablet, 10 MG PO DAILY, TAB 08/01/15 Nifedipine* (Nifedipine ER*) 60 Mg Tablet.sa, 60 MG PO BID, TAB.SA 08/01/15 Nitroglycerin* (Nitrostat*) 0.4 Mg Tab.subl, 0.4 MG SL Q5MIN Y for CHEST PAIN, BOTTLE 07/16/14 Furosemide* (Lasix*) 40 Mg Tablet, 40 MG PO DAILY, TAB 07/16/14 Allergies Allergies: Coded Allergies: clopidogrel bisulfate (Verified Allergy, Unknown, rash, 06/17/16) PMhx/Soc History of Surgery: Yes (CABG, 4 CS,Lobectomy, Bilat eye sirgery) Anesthesia Reaction: No Hx Neurological Disorder: Yes (CVA) Hx Respiratory Disorders: No Hx Cardiac Disorders: Yes (sp CABG) Hx Psychiatric Problems: No Hx Miscellaneous Medical Probl: No (ESRD) Hx Alcohol Use: No Hx Substance Use: No Hx Tobacco Use: No Physical Exam Vitals Vital Signs Date Time Temp Pulse Resp B/P Pulse Ox O2 Delivery O2 Flow Rate FiO2 12/11/16 14:58 98.8 85 16 158/80 98 Physical Exam General: Well-developed, well-nourished, conscious and coherent, in no distress Skin: Warm and dry without rash, good texture and turgor Head: Normocephalic without evidence of trauma Eyes: Sclera and conjunctivae normal; pupils equal, round, and reactive to light; extraocular movements are intact Chest: Normal AP diameter. Good expansion without retractions. Nontender. Lungs are clear to auscultate bilaterally with good tidal volume Heart: Regular rate and rhythm. No murmur, rub, or gallops heard Abdomen: Soft and nontender without masses, guarding, or rebound. Bowel sounds are active. No hepatosplenomegaly Extremities: Full range of motion. Good strength bilaterally. No clubbing, cyanosis, or edema. Peripheral pulses are intact. Sensation intact Neuro: Alert and oriented 4, GCS 15. Cranial nerves grossly intact. Motor and sensory exams nonfocal. Moves all extremities. Speech clear. Gait normal Procedures/MDM Well-appearing 71-year-old female with history of end-stage renal disease on dialysis presented to ED here for Vargas removal. Vargas was placed [address] Krishnamurthy because patient was complaining of low urine output, possible urinary retention. Vargas was placed to rule out no urine production versus urinary retention. Patient does have a small amount of urine production at this time. I cannot completely rule out urinary retention. However, I feel Vargas catheter is high risk for dinner tract infection. I will remove the Vargas catheter for patient at this time. Patient is advised to continue to track her urine output at home, and follow-up with a urologist. Patient given referral to Dr. Maria and Dr. Boyer. She also advised to follow-up with her loader operator/ground leader, Dr. Bates. The catheter is removed without any complications. Patient tolerated procedure well. Patient appears well, stable for discharge and outpatient management. Medical decision making shared with patient and family. Education provided to patient and family. Patient and family expressed understanding of the plan. Medications on discharge: None. Follow-up: Primary care provider in 2-3 days or return to ED if worse. The case was reviewed and discussed with Dr. Krishnamurthy, who agrees with the plan of care including labs, treatment, and advanced imaging as appropriate. Disclaimer: Inadvertent spelling and grammatical errors are likely due to EHR/ dictation software use and do not reflect on the overall quality of patient care. Also, please note that the electronic time recorded on this note does not necessarily reflect the actual time of the patient encounter. Departure Diagnosis: Primary Impression: Encounter for Vargas catheter removal Additional Impression: End stage renal disease Condition: Stable Patient Instructions: Vargas Catheter Removal Referrals: PIERO MARIA MD, EUGENE MD Additional Instructions: Follow up with a urologist (Dr. Maria or Dr. Boyer) in 2-3 days. YASH ROBLERO NP Dec 11, 2016 19:07
== END 2016-12-11 15:59 | disposition home or self-care (01) ==
LOC: FTE 14:50
DX: Z46.6 Encounter for fitting and adjustment of urinary device (principal); N18.6 End stage renal disease; Z79.82 Long term (current) use of aspirin; Z95.1 Presence of aortocoronary bypass graft; Z99.2 Dependence on renal dialysis
CPT/HCPCS: 99283

== ENCOUNTER 2016-12-26 17:35 | Emergency (ER) | payer MEDICARE, OTHER ==
[~2016-12-26] VITALS: Ht 144.8 cm; Wt 63.4 kg
[2016-12-26 17:37] VITALS: Ht 144.8 cm; Wt 63.4 kg
[2016-12-26] MEDS ORDERED: SOD CHLORIDE 0.9% 1,000 ML IV STA (19:22)
[2016-12-26 19:38] LABS: URINE BLOOD (Dip) POC Trace-intact (NEGATIVE)
[2016-12-26 19:42] LABS: BASOPHIL # 0.1 10^3/ul (0.0-0.1); BASOPHILS % 0.6 % (0.0-2.0); EOSINOPHILS # 0.2 10^3/ul (0.0-0.5); HEMATOCRIT 35.7 % (37.0-47.0); HEMOGLOBIN 11.4 g/dl (12.0-16.0); LYMPHOCYTES # 1.3 10^3/ul (0.8-2.9); LYMPHOCYTES % 14.3 % (15.0-51.0); MEAN CORPUSCULAR HGB CONC 31.9 g/dl (32.0-37.0); MEAN CORPUSCULAR VOLUME 100.3 fl (82.0-101.0); MEAN PLATELET VOLUME 10.9 fl (7.4-10.4); MONOCYTE # 0.7 10^3/ul (0.3-0.9); MONOCYTES % 7.3 % (0.0-11.0); NEUTROPHIL # 6.7 10^3/ul (1.6-7.5); NEUTROPHILS % 75.5 % (39.0-77.0); PLATELET COUNT 205 10^3/UL (140-415); RED BLOOD COUNT 3.56 10^6/ul (4.20-5.40); RED CELL DISTRIBUTION WIDTH 13.3 % (11.5-14.5); WHITE BLOOD COUNT 8.9 10^3/ul (4.8-10.8)
[2016-12-26 20:09] LABS: ALBUMIN 4.2 g/dl (3.3-4.9); ALBUMIN/GLOBULIN RATIO 1.31; BILIRUBIN,INDIRECT 0.5 mg/dl (0-1.1); BILIRUBIN,TOTAL 0.5 mg/dl (0.2-1.3); CALCIUM 8.8 mg/dl (8.4-10.2); CREATININE 4.07 mg/dl (0.44-1.00); POTASSIUM 4.1 mmol/L (3.5-5.1); TOTAL PROTEIN 7.4 g/dl (6.1-8.1)
[2016-12-26 20:17] LABS: TROPONIN-I 0.045 ng/ml (0.00-0.12)
[2016-12-26] MEDS ORDERED: FAMOTIDINE 20 MG INJ IV STA (20:26)
[2016-12-26] MEDS ORDERED: ONDANSETRON 4 MG INJ IV STA (20:26)
[2016-12-26 20:57] LABS: PROTIME 12.6 Sec (12.2-14.2)
[2016-12-26 20:58] LABS: INR 0.94; PARTIAL THROMBOPLASTIN TIME 34.4 Sec (25.0-35.0)
[2016-12-26] MEDS ORDERED: ONDA8TAB14 PO (22:20)
--- NOTE | 2016-12-26 22:29 | ERD ---
ER Documentation Chief Complaint Date/Time DATE: 12/26/16 TIME: 22:28 Chief Complaint GENERALIZED WEAKNESS WITH NAUSEA SINCE MORNING GOSIA Is a very pleasant 71-year-old female with a known history of end-stage renal disease on hemodialysis every Tuesday and Tuesday. Her corrective therapy aide teacher is Dr. Bates. She has a right AV fistula in her upper extremity. She had a full run of dialysis yesterday. Her daughter brought her to the emergency department as she stated upon awakening this morning at roughly 10:30 AM, 10 hours prior to arrival she developed a sudden onset of nausea and generalized weakness. Her daughter did indicate that the patient had been at her grandsons 21st birthday alliance party the night before and stayed up later than usual and also ate more food than she usually does. The patient complained of nausea but did not experience any hemoptysis hematemesis or melanotic stools. The patient does make urine and denies any frequency urgency or dysuria. She denies any chest pain or pressure that radiates to the neck arm back or jaw. She denies any abdominal pain. She has no back pain. She is no shortness of breath at rest or exertion. ROS All systems reviewed and are negative except as per history of present illness. Medications Home Meds Active Scripts Ondansetron (Ondansetron Odt) 8 Mg Tab.rapdis, 8 MG PO Q6H Y for NAUSEA AND/OR VOMITING, #10 TAB Prov:JOSE TAN 12/26/16 Pantoprazole* (Pantoprazole*) 40 Mg Tablet.dr, 40 MG PO DAILY for 30 Days, #30 TAB 5 Refills Prov:BLANK HOFFMAN MD 06/22/16 Hydralazine Hcl* (Hydralazine Hcl*) 25 Mg Tab, 25 MG PO Q8 for 30 Days, #90 TAB 5 Refills Prov:BLANK HOFFMAN MD 06/22/16 Ciprofloxacin Hcl* (Ciprofloxacin Hcl*) 500 Mg Tablet, 500 MG PO DAILY@06 for 2 Days, #2 TAB 0 Refills Prov:BLANK HOFFMAN MD 06/22/16 Repaglinide* (Repaglinide*) 2 Mg Tablet, 4 MG PO AC MEALS for 30 Days, #180 TAB 5 Refills Prov:BLANK HOFFMAN MD 06/22/16 Reported Medications Liraglutide (Victoza 3-Jared) 0.6 Mg/0.1 Ml Pen.injctr, 1.8 MG SQ QAM, SYR 06/17/16 Insulin Degludec (Tresiba Flextouch U-100) 100 Unit/1 Ml Insuln.pen, 35 UNIT SQ QAM 06/17/16 [Life Extension] No Conflict Check, 1 TAB PO DAILY for VITAMINS 06/17/16 Cholecalciferol (Vitamin D3) (VITAMIN D-3) 2,000 Unit Capsule, 1300 UNIT PO DAILY, CAP 06/17/16 Aspirin* (Ecotrin*) 325 Mg Tablet.dr, 325 MG PO DAILY, TAB 08/01/15 Ascorbate Calcium (Vitamin C) 500 Mg Tablet, 500 MG PO DAILY, TAB 08/01/15 Isosorbide Mononitrate* (Isosorbide Mononitrate*) 30 Mg Tab.er.24h, 30 MG PO DAILY, TAB 08/01/15 Ezetimibe* (Zetia*) 10 Mg Tablet, 10 MG PO DAILY, TAB 08/01/15 Nifedipine* (Nifedipine ER*) 60 Mg Tablet.sa, 60 MG PO BID, TAB.SA 08/01/15 Nitroglycerin* (Nitrostat*) 0.4 Mg Tab.subl, 0.4 MG SL Q5MIN Y for CHEST PAIN, BOTTLE 07/16/14 Furosemide* (Lasix*) 40 Mg Tablet, 40 MG PO DAILY, TAB 07/16/14 Allergies Allergies: Coded Allergies: clopidogrel bisulfate (Verified Allergy, Unknown, rash, 06/17/16) PMhx/Soc History of Surgery: Yes (CABG, 4 CS,Lobectomy, Bilat eye sirgery) Anesthesia Reaction: No Hx Neurological Disorder: Yes (CVA) Hx Respiratory Disorders: No Hx Cardiac Disorders: Yes (sp CABG) Hx Psychiatric Problems: No Hx Miscellaneous Medical Probl: No (ESRD) Hx Alcohol Use: No Hx Substance Use: No Hx Tobacco Use: No Smoking Status: Never smoker Physical Exam Vitals Vital Signs Date Time Temp Pulse Resp B/P Pulse Ox O2 Delivery O2 Flow Rate FiO2 12/26/16 17:37 99.0 82 16 171/74 96 Physical Exam Constitutional:Well-developed. Well-nourished. HEENT:Normocephalic. Atraumatic.Pupils were equal round reactive to light. Moist mucous membranes.No tonsillar exudates. Neck: No nuchal rigidity. No lymphadenopathy. No posterior cervical spine tenderness or step-offs. Respiratory: Not using accessory muscles of respiration.Lungs were clear to auscultation bilaterally. No rhonchi. No rales. No wheezing. Cardiovascular: Regular rate regular rhythm.No murmurs. No rubs were appreciated.S1, S2 normal. Distal pulses are palpable 2+ bilaterally. GI: Abdomen was soft. Nontender. Non Distended. No pulsatile abdominal masses or bruits. No rebound. No guarding. Bowel sounds were present and normal. Muscle skeletal: Full range of motion of both the upper and lower extremities bilaterally.Normal muscle tone.No assymetrical calf tenderness or swelling. Skin: No petechia, no purpura. No lesions on the palms or the soles of the feet. No maculopapular rash. Positive thrill and bruit of the right upper extremity AV fistula. NEURO: Patient was alert, awake, orientated x3.No facial droop. Gait observed and normal with no ataxia.Speech had regular rate and rhythm. No focal neurological deficits. Result Diagram: 12/26/16193112/26/161931 Results 24 hrs Laboratory Tests Test 12/26/16 19:32 12/26/16 19:46 White Blood Count 8.910^3/ul Red Blood Count 3.5610^6/ul Hemoglobin 11.4g/dl Hematocrit 35.7% Mean Corpuscular Volume 100.3fl Mean Corpuscular Hemoglobin 32.0pg Mean Corpuscular Hemoglobin Concent 31.9g/dl Red Cell Distribution Width 13.3% Platelet Count 42845^3/UL Mean Platelet Volume 10.9fl Neutrophils % 75.5% Lymphocytes % 14.3% Monocytes % 7.3% Eosinophils % 2.0% Basophils % 0.6% Nucleated Red Blood Cells % 0.0/100WBC Neutrophils # 6.710^3/ul Lymphocytes # 1.310^3/ul Monocytes # 0.710^3/ul Eosinophils # 0.210^3/ul Basophils # 0.110^3/ul Nucleated Red Blood Cells # 0.010^3/ul Prothrombin Time 12.6Sec Prothrombin Time Ratio 1.0 INR International Normalized Ratio 0.94 Activated Partial Thromboplast Time 34.4Sec Sodium Level 142mmol/L Potassium Level 4.1mmol/L Chloride Level 98mmol/L Carbon Dioxide Level 31mmol/L Anion Gap 17 Blood Urea Nitrogen 32mg/dl Creatinine 4.07mg/dl Glucose Level 135mg/dl Calcium Level 8.8mg/dl Total Bilirubin 0.5mg/dl Direct Bilirubin 0.00mg/dl Indirect Bilirubin 0.5mg/dl Aspartate Amino Transf (AST/SGOT) 40IU/L Alanine Aminotransferase (ALT/SGPT) 55IU/L Alkaline Phosphatase 507IU/L Troponin I 0.045ng/ml Total Protein 7.4g/dl Albumin 4.2g/dl Globulin 3.20g/dl Albumin/Globulin Ratio 1.31 Amylase Level 75U/L Lipase 257U/L Bedside Urine pH (LAB) 8.5 Bedside Urine Protein (LAB) 3+ Bedside Urine Glucose (UA) Negative Bedside Urine Ketones (LAB) Negative Bedside Urine Blood Trace-intact Bedside Urine Nitrite (LAB) Negative Bedside Urine Leukocyte Esterase (L Negative Current Medications Medications (Trade) Dose Ordered Sig/Santino Route PRN Reason Start Time Stop Time Status Last Admin Dose Admin Sodium Chloride (NS) 1,000 ml @ 1,000 mls/hr Q1H STAT IV 12/26/16 19:22 12/26/16 20:21 DC 12/26/16 19:56 Ondansetron HCl (Zofran Inj) 4 mg ONCE STAT IV 12/26/16 20:26 12/26/16 20:27 DC 12/26/16 21:15 Famotidine (Pepcid Iv) 20 mg ONCE STAT IV 12/26/16 20:26 12/26/16 20:27 DC 12/26/16 21:15 Procedures/MDM Patient presented to the emergency department with nausea but no abdominal pain. The patient had IV access established by nursing staff. The patient did appear to have mild clinical dehydration was only given roughly 200 cc bolus of normal saline given that the patient has history of end-stage renal disease but is not oliguric. The patient had no electrolyte abnormalities other than a mild elevation of her BUN and creatinine but potassium was within normal limits. She did not require emergent hemodialysis and had no signs of pulmonary edema therefore chest radiograph was not obtained. The patient received IV Zofran and Pepcid. She remained in the emergency [place] for an observation period with complete resolution of her symptoms per There is no evidence of atypical myocardial infarction. The patient's cardiac troponin was negative. 12 Lead EKG tracing ordered and reviewed by myself showed: Normal sinus rhythm of 82 bpm and no arrhythmia. ME interval widened at 280 ms with a first-degree AV block QRS duration is widened at 136 ms with right bundle branch block No ST segment elevation No ST segment depression. No changes consistent with acute ischemia. The patient's daughter was at the bedside and she did feel comfortable with her being discharged home. They will follow-up with her PCP and her corrective therapy aide teacher in the next 24 hours. She was sent home with a prescription of Zofran to take if needed. The patient was discharged home in fair condition. They were instructed to return to the emergency department at any time if there was any worsening of their condition. The patient stated they would follow up with their PCP in the next 24-48 hours to initiate a suitable medication regimen under the care of their PCP as well as to allow their PCP to monitor any drug reactions. The patient was discharged home with prescriptions after they gave informed consent to the new medication. They were also fully informed by myself on the adverse effects and adverse drug interactions in order to provide adequate safeguards to prevent possible adverse reactions to medications. Departure Diagnosis: Primary Impression: Acute weakness Additional Impression: Nausea Condition: Fair Patient Instructions: Nausea Referrals: BLANK HOFFMAN MD (PCP) JOSE TAN Dec 26, 2016 22:29
[2016-12-26 22:57] VITALS: BP 158/61; PULSE 73; RESP 16; TEMP 98.7
== END 2016-12-26 22:59 | disposition home or self-care (01) ==
LOC: E/R 17:35
DX: R53.1 Weakness (principal); R11.0 Nausea; E11.22 Type 2 diabetes mellitus with diabetic chronic kidney disease; N18.6 End stage renal disease; Z79.4 Long term (current) use of insulin; Z79.82 Long term (current) use of aspirin; Z98.61 Coronary angioplasty status; Z99.2 Dependence on renal dialysis
CPT/HCPCS: 80053; 81003; 82150; 83690; 84484; 85025; 85610; 85730; 96374; 96375; 99284; J2405; J7030

== ENCOUNTER → 2017-12-12 | Outpatient (CLI) | END | disposition home or self-care (01) ==

== ENCOUNTER 2017-12-20 20:48 | Inpatient (IN) | END 2017-12-23 19:30 | disposition home or self-care (01) | DRG 291 ==

== ENCOUNTER → 2018-04-03 | Outpatient (CLI) | payer MEDICARE, OTHER ==
[~2018-04-03] MED LIST changes: +CALC300T4 PO; -CIPR500T4 PO; -EZET10TA3 PO; +EZET10TA31 PO; +INSU100C3 SQ; -ISOS30TA5 PO; +ISOS30TA67 PO; +NIFE30TA2 PO; -NIFE60TA7 PO; -NIT4 SL; +NITR0.4T39 SL; +ONDA8TAB14 PO; -REPA2TAB8 PO; -[UNRECOGNIZED DRUG - OTHER] PO
== END | disposition home or self-care (01) ==
LOC: RAD 10:10
PROVIDERS: ATTEND Internal Medicine
DX: S80.12XD Contusion of left lower leg, subsequent encounter (principal); W19.XXXD Unspecified fall, subsequent encounter
CPT/HCPCS: 71046; 73590

== ENCOUNTER 2018-12-30 23:09 | Emergency (ER) | payer MEDICARE, OTHER ==
[~2018-12-30] VITALS: Ht 144.8 cm; Wt 58.0 kg
[~2018-12-30 23:09] MED LIST changes: -ASCO-110 PO; -ASPI-781 PO; -CALC300T4 PO; +CEPH-443 PO; -CHOL200073 PO; +EZET10TA19 PO; -EZET10TA31 PO; +FOLI-49 PO; -FURO-109 PO; +FURO40TA4 PO; -HYDR-3671 PO; -INSU100C3 SQ; +LOSA50TA14 PO; +MECL-77 PO; -NIFE30TA2 PO; +NIFE30TA23 PO; -NITR0.4T39 SL; +NOVO3I SC; -ONDA8TAB14 PO; +PANT40TA3 PO; -PANT40TA4 PO; +SULF1TAB31 PO
[2018-12-30 23:28] VITALS: BP 156/72; PULSE 84; RESP 18; Ht 144.8 cm; Wt 58.0 kg
[2018-12-31] MEDS ORDERED: CEPHALEXIN 500 MG CAP PO ONE (04:00)
[2018-12-31] MEDS ORDERED: TRIMETHOPRIM/SULFAMETHOX (DS) TAB PO ONE (04:00)
== END 2018-12-31 04:17 | disposition home or self-care (01) ==
LOC: FTE 23:09
DX: K13.0 Diseases of lips (principal); E11.9 Type 2 diabetes mellitus without complications; I12.9 Hypertensive chronic kidney disease with stage 1 through stage 4 chronic kidney disease, or unspecified chronic kidney disease; N18.9 Chronic kidney disease, unspecified; Z79.4 Long term (current) use of insulin; Z86.73 Personal history of transient ischemic attack (TIA), and cerebral infarction without residual deficits
CPT/HCPCS: 99283

== ENCOUNTER 2019-01-09 15:28 | Emergency (ER) | payer MEDICARE, OTHER ==
[~2019-01-09] VITALS: Ht 152.4 cm; Wt 78.0 kg
[2019-01-09 15:32] VITALS: BP 152/66; PULSE 86; RESP 18; Ht 152.4 cm; Wt 78.0 kg
== END 2019-01-09 20:45 | disposition left against medical advice (07) ==
LOC: E/R 15:28
DX: Z53.21 Procedure and treatment not carried out due to patient leaving prior to being seen by health care provider (principal)
CPT/HCPCS: 80053; 85025